=== PATIENT | female | born 1940 | race Caucasian/White ===

== ENCOUNTER → 2016-06-28 | Outpatient (CLI) | payer MEDICARE, BC ==
[2015-10-04 07:00] VITALS: BP 102/60
[~2016-06-28] MED LIST: ALEN70TA5 PO; ATOR40TA59 PO; CALC-67 PO; EXEN2VIA SQ; EXEN5PEN2 SQ; GABA-585 PO; HYDR-2666 PO; INSU100I13 SQ; LISI-334 PO; LOSA100T6 PO; METF-620 PO; MULT1TAB52 PO; OXYB5TAB7 PO
--- NOTE | 2016-06-28 12:17 | RAD ---
DATE: 06/28/2016 EXAM: DIGITAL SCREEN BILAT W/CAD HISTORY: Routine screening. COMPARISON: 05/19/2015 and 05/17/2014. This study was interpreted with the benefit of Computerized Aided Detection (CAD). FINDINGS: The parenchymal pattern is stable. No dominant mass or malignant appearing microcalcifications are seen. The axillae are unremarkable. Breast Density: SCATTERED The breast parenchyma shows scattered fibroglandular densities. Breast parenchyma level B. IMPRESSION: No mammographic features suspicious for malignancy are identified. BI-RADS CATEGORY: 1 NEGATIVE RECOMMENDED FOLLOW-UP: 12M 12 MONTH FOLLOW-UP PQRS compliance statement: Patient information was entered into a reminder system with a target due date 06/28/2017 for the next mammogram. Mammography is a sensitive method for finding small breast cancers, but it does not detect them all and is not a substitute for careful clinical examination. A negative mammogram does not negate a clinically suspicious finding and should not result in delay in biopsying a clinically suspicious abnormality. "Our facility is accredited by the [employer] Mamm[employer]."
== END | disposition home or self-care (01) ==
LOC: MAMMO 08:30
PROVIDERS: ATTEND Internal Medicine
DX: Z12.31 Encounter for screening mammogram for malignant neoplasm of breast (principal)
CPT/HCPCS: G0202; 77067

== ENCOUNTER 2016-09-23 12:48 | Inpatient (IN) | payer MEDICARE, BC ==
[~2016-09-23] VITALS: Ht 165.1 cm; Wt 72.7 kg
[~2016-09-23 12:48] MED LIST changes: +CALC-31 PO; -CALC-67 PO; -HYDR-2666 PO; +HYDR-2758 PO
[2016-09-23 13:14] LABS: BASO % 0 % (0-3); EOS % 1 % (0-3); HEMOGLOBIN 10.8 g/dL (12.0-15.5); LYMPH # 0.3 x10^3/uL (1.0-4.8); LYMPH % 6 % (24-48); MEAN CORPUSCULAR HEMOGLOBIN 27 pg (25-35); MEAN CORPUSCULAR HGB CONC 34 g/dL (31-37); MEAN CORPUSCULAR VOLUME 80 fL (79-100); MONO % 7 % (0-9); NEUT % 86 % (31-73); PLATELET COUNT 280 x10^3/uL (140-400); RED BLOOD COUNT 4.01 x10^6/uL (3.50-5.40); WHITE BLOOD COUNT 4.5 x10^3/uL (4.0-11.0)
[2016-09-23] MEDS ORDERED: IV NORMAL SALINE 1000ML BAG 1,000 ML IV SCH (13:24)
[2016-09-23 13:27] LABS: CALCIUM 9.2 mg/dL (8.5-10.1); CREATININE 0.8 mg/dL (0.6-1.0); GFR 69.6; POTASSIUM 3.9 mmol/L (3.5-5.1)
[2016-09-23] MEDS ORDERED: ONDANSETRON PF 4 MG/2 ML VIAL. IV ONE (13:30)
[2016-09-23 13:33] LABS: ALBUMIN 3.8 g/dL (3.4-5.0); ALBUMIN/GLOBULIN RATIO 1.3 (1.0-1.7); TOTAL BILIRUBIN 0.6 mg/dL (0.2-1.0); TOTAL PROTEIN 6.8 g/dL (6.4-8.2)
--- NOTE | 2016-09-23 13:45 | ED.ADGEN ---
Past Medical History Past Medical History: Diabetes-Type II, High Cholesterol, Hypertension Past Surgical History: , Hysterectomy Alcohol Use: None Drug Use: None Adult General Chief Complaint Chief Complaint: NAUSEA/VOMITING/DIARRHA HPI HPI Patient is a 75 year old woman, history of type 2 diabetes mellitus, insulin- dependent, hypertension, hyperlipidemia, who presents to the emergency department with complaint of nausea, vomiting, abdominal pain, over the past several days. Developed fever today, initially 100.3, but 100.8, and then 102.3 per . Patient is currently afebrile at 99 orally in the emergency department, did receive aspirin at home from her . Denies any diarrhea since states last bowel was yesterday. Is slightly confused today per report of , states has happened previously when her "her electrolytes were off". This occurred several years ago. Patient states she's had increasing malaise and decreased appetite. Denies any chest pain or shortness of breath, denies any pain with urination, any recent travel or surgery, any medication changes or missed doses of medication. No rashes, no swelling in extremities. Has not taken any medications at home aside from her typical daily medications prior to coming to the ED. Her primary care provider is Dr. Morfin. Status post cholecystectomy, uncertain if she still has her appendix. Review of Systems Review of Systems Constitutional: Fever times one day. [] Generalized malaise and weakness. Eyes: Denies change in visual acuity. [] HENT: Denies nasal congestion or sore throat. [] Respiratory: Denies cough or shortness of breath. [] Cardiovascular: Denies chest pain or edema. [] GI: Abdominal pain, nausea, vomiting, no bloody stools or diarrhea. : Denies dysuria. [] Musculoskeletal: Denies back pain or joint pain. [] Integument: Denies rash. [] Neurologic: Denies headache, focal weakness or sensory changes. [] Endocrine: Denies polyuria or polydipsia. [] Lymphatic: Denies swollen glands. [] Psychiatric: Denies depression or anxiety. [] Current Medications Current Medications Current Medications Medications (Trade) Dose Ordered Sig/Namita Start Time Stop Time Status Last Admin Dose Admin Info (Do NOT chart on this entry -- for MONITORING) 1 each PRN DAILY PRN 09/23/16 14:30 8/8/17 14:29 Iohexol (Omnipaque 300 Mg/ml) 75 ml 1X ONCE 09/23/16 14:30 09/23/16 14:31 DC 09/23/16 15:13 75 ML Ondansetron HCl (Zofran) 4 mg 1X ONCE 09/23/16 13:30 09/23/16 13:31 DC 09/23/16 13:34 4 MG Sodium Chloride 1,000 ml @ 1,000 mls/hr Q1H 09/23/16 13:24 09/23/16 14:23 DC 09/23/16 13:34 1,000 MLS/HR Allergies Allergies Allergies Coded Allergies Type Severity Reaction Last Updated Verified codeine Allergy Intermediate Nausea and Vomiting 10/03/15 Yes tramadol Allergy Intermediate Nausea and Vomiting 10/03/15 Yes Physical Exam Physical Exam Constitutional: Well developed, well nourished, no acute distress, non-toxic appearance. Mildly diaphoretic. HENT: Normocephalic, atraumatic, bilateral external ears normal, oropharynx moist, no oral exudates, nose normal. [] Eyes: PERRLA, EOMI, conjunctiva normal, no discharge. [] Neck: Normal range of motion, no tenderness, supple, no stridor. [] Cardiovascular:Heart rate regular rhythm, no murmur, S1, S2, rubs or gallops. Soft heart sounds. [] Lungs & Thorax: Bilateral breath sounds clear to auscultation no wheezing, rhonchi, rales. No chest wall crepitus or tenderness. [] Abdomen: Bowel sounds normal, soft, tenderness to palpation in the lower abdomen , patient also noted to have a macular rash across her abdomen, which she states happens sometimes when she has her insulin injections, there are no urticaria, no evidence of abscess or induration. It is nontender superficially. no masses, no pulsatile masses. [] Skin: Warm, dry, no erythema, no rash. [] Back: No tenderness, no CVA tenderness. [] Extremities: No tenderness, no cyanosis, no clubbing, ROM intact, no edema. [] Neurologic: Alert and oriented X 3, normal motor function, normal sensory function, no focal deficits noted. [] Psychologic: Affect normal, judgement normal, mood normal. [] Current Patient Data Vital Signs Vital Signs Date Time Temp Pulse Resp B/P (MAP) Pulse Ox O2 Delivery O2 Flow Rate FiO2 09/23/16 12:49 99.0 94 20 160/73 (102) 96 Room Air 99.0 Lab Values Laboratory Tests Test 09/23/16 13:00 09/23/16 15:50 White Blood Count 4.5 x10^3/uL (4.0-11.0) Red Blood Count 4.01 x10^6/uL (3.50-5.40) Hemoglobin 10.8 g/dL (12.0-15.5) L Hematocrit 32.0 % (36.0-47.0) L Mean Corpuscular Volume 80 fL (79-100) Mean Corpuscular Hemoglobin 27 pg (25-35) Mean Corpuscular Hemoglobin Concent 34 g/dL (31-37) Red Cell Distribution Width 16.0 % (11.5-14.5) H Platelet Count 280 x10^3/uL (140-400) Neutrophils (%) (Auto) 86 % (31-73) H Lymphocytes (%) (Auto) 6 % (24-48) L Monocytes (%) (Auto) 7 % (0-9) Eosinophils (%) (Auto) 1 % (0-3) Basophils (%) (Auto) 0 % (0-3) Neutrophils # (Auto) 3.8 x10^3uL (1.8-7.7) Lymphocytes # (Auto) 0.3 x10^3/uL (1.0-4.8) L Monocytes # (Auto) 0.3 x10^3/uL (0.0-1.1) Eosinophils # (Auto) 0.0 x10^3/uL (0.0-0.7) Basophils # (Auto) 0.0 x10^3/uL (0.0-0.2) Segmented Neutrophils % 51 % (35-66) Band Neutrophils % 31 % (0-9) H Lymphocytes % 11 % (24-48) L Atypical Lymphocytes % (Manual) 1 % (0-0) H Monocytes % 6 % (0-10) Platelet Estimate Adequate (ADEQUATE) Sodium Level 130 mmol/L (136-145) L Potassium Level 3.9 mmol/L (3.5-5.1) Chloride Level 93 mmol/L (98-107) L Carbon Dioxide Level 26 mmol/L (21-32) Anion Gap 11 (6-14) Blood Urea Nitrogen 9 mg/dL (7-20) Creatinine 0.8 mg/dL (0.6-1.0) Estimated GFR (Cockcroft-Gault) 69.6 BUN/Creatinine Ratio 11 (6-20) Glucose Level 199 mg/dL (70-99) H Lactic Acid Level 1.3 mmol/L (0.4-2.0) Calcium Level 9.2 mg/dL (8.5-10.1) Total Bilirubin 0.6 mg/dL (0.2-1.0) Aspartate Amino Transferase (AST) 470 U/L (15-37) H Alanine Aminotransferase (ALT) 340 U/L (14-59) H Alkaline Phosphatase 182 U/L (46-116) H Troponin I Quantitative < 0.017 ng/mL (0.000-0.055) Total Protein 6.8 g/dL (6.4-8.2) Albumin 3.8 g/dL (3.4-5.0) Albumin/Globulin Ratio 1.3 (1.0-1.7) Lipase 167 U/L (73-393) Urine Collection Type Unknown Urine Color Yellow Urine Clarity Cloudy Urine pH 7.5 Urine Specific Henderson 1.015 Urine Protein Negative mg/dL (NEG-TRACE) Urine Glucose (UA) Negative mg/dL (NEG) Urine Ketones (Stick) Negative mg/dL (NEG) Urine Blood Small (NEG) Urine Nitrite Negative (NEG) Urine Bilirubin Negative (NEG) Urine Urobilinogen Dipstick 0.2 mg/dL (0.2 mg/dL) Urine Leukocyte Esterase Small (NEG) Urine RBC 1-2 /HPF (0-2) Urine WBC 1-4 /HPF (0-4) Urine Squamous Epithelial Cells Few /LPF Urine Bacteria Many /HPF (0-FEW) Laboratory Tests 09/23/16 13:00 Laboratory Tests 09/23/16 13:00 EKG EKG EC: Sinus rhythm, heart rate 88 bpm, mild baseline artifact noted, upright axis QTC of 420, NM 174, QRS of 78, no ST elevations or depressions, no evidence of acute ST abnormalities. As interpreted by me. No prior for comparison. [] Radiology/Procedures Radiology/Procedures [][facility] [address] [place] [address] IMAGING REPORT Signed PATIENT: AMILCAR GONZALEZ I ACCOUNT: [id number] : 1940 LOCATION: ER AGE: 75 SEX: F EXAM STATUS: REG ER ORD. PHYSICIAN: ARANZA TROTTER DO REASON: abd pain/n/v PROCEDURE: CT ABD PELV W/ IV CONTRST ONLY Indication abdominal pain. Nausea and vomiting. Axial images through the abdomen and pelvis were obtained. No oral contrast was administered. Approximately 75 cc of Omnipaque 300 was administered intravenously. Note is made of a previous examination 01/21/2015. The lung bases are clear. There are occasional opacities in the subcutaneous soft tissues of the ventral, lower, abdominal wall. These are probably incidental. Clinical correlation advised. The liver and spleen appear unremarkable. Clips are noted in the gallbladder fossa. There is a very tiny hiatus hernia. No pancreatic pathology is seen. No adrenal pathology is seen. There is a right renal cyst similar to the previous exam. There is mild dilatation of both ureters right minimally greater than left. This is likely a function of the mildly distended urinary bladder. A definite calculus is not seen along the course of either ureter. An acute finding in the abdomen is not seen. In the pelvis no focal mass or inflammatory process is seen. There are degenerative changes in the lumbar spine likely with an associated component of spinal stenosis. IMPRESSION: No acute finding seen in the abdomen or pelvis. Mildly distended urinary bladder. Slightly prominent ureters is likely a function of same. DICTATED and SIGNED BY: CIARA ALVARADO MD DATE: 09/23/16 1535 CC: ARANZA TROTTER DO; RAIZA MORFIN MD ~ Chest x-ray: One view: Slight rotation, normal cardiopulmonary silhouette, no infiltrates, no effusions, mild flattening of the diaphragms, no pneumothorax. No soft tissue or bony abnormalities identified. As interpreted by me. Course & Med Decision Making Course & Med Decision Making Pertinent Labs and Imaging studies reviewed. (See chart for details) Patient afebrile in the ED, with reports of fever at home, agreeable receiving laboratory studies, imaging of the abdomen and chest. Chest x-ray does not reveal any evidence of concerning findings, CT of abdomen and pelvis reveals a mildly distended bladder, but no other abnormalities. Laboratory studies reveal no leukocytosis, but evidence of a left shift with bandemia of 31%. Patient's urinalysis does not reveal evidence of infection, lactic is 1.3, patient with hyponatremia with a sodium 130, creatinine of 1.1. Elevated LFTs noted, patient is status post cholecystomy many years ago, no localized abdominal tenderness. We'll continue to follow. Receiving IV fluids in the ED, along with antiemetics , remains afebrile. Patient alert and oriented 3, I did discuss findings with patient at bedside, she is agreeable with plan for admission to the hospital and coverage with broad-spectrum antibiotics. Aside from the rash noted on abdomen, no other abnormalities were identified. No additional history obtained. I did discuss findings as above with Dr. bruce of internal medicine, patient accepted to his service as a full admission to the medical telemetry floor with bridge orders entered per discussion. Dragon Disclaimer Dragon Disclaimer This electronic medical record was generated, in whole or in part, using a voice recognition dictation system. Departure Impression: Primary Impression: Hyponatremia Additional Impressions: Abdominal pain Bandemia without diagnosis of specific infection LFT elevation Disposition: ADMITTED INPATIENT Admitting Physician: Bárbara Bruce Condition: IMPROVED Problem Qualifiers ARANZA TROTTER DO Sep 23, 2016 13:45
[2016-09-23 14:09] LABS: PLT ESTIMATE ADEQUATE (ADEQUATE)
[2016-09-23] MEDS ORDERED: IOHEXOL 300 MG/ML 75 ML VIAL IV ONE (14:30)
[2016-09-23] MEDS ORDERED: CONTRAST GIVEN MC PRN (14:30)
--- NOTE | 2016-09-23 15:53 | RAD ---
Indication abdominal pain. Nausea and vomiting. Axial images through the abdomen and pelvis were obtained. No oral contrast was administered. Approximately 75 cc of Omnipaque 300 was administered intravenously. Note is made of a previous examination 01/21/2015. The lung bases are clear. There are occasional opacities in the subcutaneous soft tissues of the ventral, lower, abdominal wall. These are probably incidental. Clinical correlation advised. The liver and spleen appear unremarkable. Clips are noted in the gallbladder fossa. There is a very tiny hiatus hernia. No pancreatic pathology is seen. No adrenal pathology is seen. There is a right renal cyst similar to the previous exam. There is mild dilatation of both ureters right minimally greater than left. This is likely a function of the mildly distended urinary bladder. A definite calculus is not seen along the course of either ureter. An acute finding in the abdomen is not seen. In the pelvis no focal mass or inflammatory process is seen. There are degenerative changes in the lumbar spine likely with an associated component of spinal stenosis. IMPRESSION: No acute finding seen in the abdomen or pelvis. Mildly distended urinary bladder. Slightly prominent ureters is likely a function of same.
--- NOTE | 2016-09-23 16:06 | EKG ---
[facility] [address] [place] [address] Test Date: 2016-09-23 Test Time: 13:19:15 Pat Name: AMILCAR GONZALEZ Department: Room: Gender: F Tmd Teacher Assistant: : 1940 Requested By: ARANZA TROTTER Order Number: [id number] Reading MD: Measurements Intervals [place] Rate: 88 P: 45 UT: 174 QRS: 3 QRSD: 78 T: 70 QT: 344 QTc: 420 Interpretive Statements SINUS RHYTHM NORMAL ECG RI6.01 Compared to ECG 01/21/2015 08:57:33 No significant changes
[2016-09-23 16:17] LABS: BILIRUBIN,URINE NEGATIVE (NEG); GLUCOSE,URINE NEGATIVE (NEG); NITRITE,URINE NEGATIVE (NEG); PH,URINE 7.5; PROTEIN,URINE NEGATIVE (NEG-TRACE); UROBILINOGEN,URINE 0.2 mg/dL (0.2 mg/dL)
[2016-09-23 16:47] LABS: BACTERIA,URINE MANY /HPF (0-FEW); SQUAMOUS EPITHELIAL CELL,UR FEW /LPF
[2016-09-23] MEDS ORDERED: VANCOMYCIN 1.75 GM in IV NORMAL SALINE 500ML BAG 500 ML IV ONE (17:15)
[2016-09-23] MEDS: CEFEPIME HCL 2 GM in IV NORMAL SALINE 100ML 100 ML IV SCH (17:53)
[2016-09-23] MEDS ORDERED: DEXTROSE 50% 25 GM / 50ML DISP.SYRIN. IV PRN ×2 (18:45→20:15)
[2016-09-23] MEDS ORDERED: ACETAMINOPHEN 325 MG TABLET. PO PRN (18:45)
[2016-09-23] MEDS ORDERED: fentaNYL PF VIAL 100 MCG/2 ML VIAL IV PRN (18:45)
[2016-09-23] MEDS ORDERED: ONDANSETRON PF 4 MG/2 ML VIAL. IV PRN (18:45)
[2016-09-23 19:05] VITALS: BP 132/58
[2016-09-23] MEDS: VANCOMYCIN PER PHARMACY MC PRN (19:47)
[2016-09-23 19:52] VITALS: BP 132/58
[2016-09-23] MEDS ORDERED: HYDROcodone/APAP 5/325MG 1 TAB TABLET PO PRN (20:15)
--- NOTE | 2016-09-23 20:26 | PDOC1 ---
History and Physical Date of Admission Date of Admission DATE: 09/23/16 TIME: 20:13 Identification/Chief Complaint Chief Complaint fever, confusion Problems: Source Source: Caregiver, Chart review, Patient History of Present Illness History of Present Illness Ms. Redding is a 75 year old woman, ,admit from ER w/ acute nausea, vomiting, abdominal pain, over the past several days. Has myalgia and lethargy and generally does not feel well Developed fever today, up to 102.3 per , given aspirin for anti- pyretic. She was confused earlier, but family reports she is largely improved now, still , she preferred to have her and daughter provide most of the history. no loose stool , but does have a rash where she injects her insulin PCP Dr. Morfin Past Medical History Past Medical History history of type 2 diabetes mellitus, insulin-dependent, hypertension, hyperlipidemia Cardiovascular: HTN, Hyperlipidemia, Other Endocrine: Diabetes Past Surgical History Past Surgical History: No pertinent history Family History Family History: Other Social History Smoke: No ALCOHOL: none Drugs: None Current Problem List Problem List Problems Medical Problems: (1) Abdominal pain Status: Acute (2) Bandemia without diagnosis of specific infection Status: Acute (3) Hyponatremia Status: Acute (4) LFT elevation Status: Acute Problems: Current Medications Current Medications Current Medications Sodium Chloride 1,000 ml @ 1,000 mls/hr Q1H IV Last administered on 09/23/16 13:34; Start 09/23/16 at 13:24; Stop 09/23/16 at 14:23; Status DC Ondansetron HCl (Zofran) 4 mg 1X ONCE IV Last administered on 09/23/16 13:34; Start 09/23/16 at 13:30; Stop 09/23/16 at 13:31; Status DC Iohexol (Omnipaque 300 Mg/ml) 75 ml 1X ONCE IV Last administered on 09/23/16 15:13; Start 09/23/16 at 14:30; Stop 09/23/16 at 14:31; Status DC Info (Do NOT chart on this entry -- for MONITORING) 1 each PRN DAILY PRN MC SEE COMMENTS; Start 09/23/16 at 14:30; Stop 09/25/16 at 14:29 Vancomycin HCl (Vanco Per Pharmacy) 1 each PRN DAILY PRN MC SEE COMMENTS Last administered on 09/23/16 19:47; Start 09/23/16 at 17:15 Cefepime HCl 2 gm/ Sodium Chloride 100 ml @ 200 mls/hr Q12HR IV Last administered on 09/23/16 17:53; Start 09/23/16 at 17:30 Vancomycin HCl 1.75 gm/Sodium Chloride 500 ml @ 250 mls/hr 1X ONCE IV Last administered on 09/23/16 18:39; Start 09/23/16 at 17:15; Stop 09/23/16 at 19:14; Status DC Ondansetron HCl (Zofran) 4 mg PRN Q8HRS PRN IV NAUSEA/VOMITING; Start 09/23/16 at 18:45; Stop 09/24/16 at 18:44 Fentanyl Citrate (Fentanyl 2ml Vial) 50 mcg PRN Q2HR PRN IV PAIN; Start at 18:45; Stop 09/24/16 at 18:44 Sodium Chloride 1,000 ml @ 125 mls/hr Q8H IV ; Start 09/23/16 at 18:41; Stop 09/24/16 at 18:40 Acetaminophen (Tylenol) 650 mg PRN Q4HRS PRN PO FEVER; Start 09/23/16 at 18:45; Stop 09/24/16 at 18:44 Insulin Aspart (NovoLOG) 0-5 UNITS TIDWMEALS SQ ; Start 09/24/16 at 08:00 Dextrose (Dextrose 50%-Water Syringe) 12.5 gm PRN Q15MIN PRN IV SEE COMMENTS; Start 09/23/16 at 18:45 Vancomycin HCl 1 gm/Sodium Chloride 250 ml @ 250 mls/hr Q24H IV ; Start at 18:30 Vancomycin HCl 1 each 1X ONCE MC ; Start 09/25/16 at 18:00; Stop 09/25/16 at 18: 01 Active Scripts Active Hydrocodone-Apap 5-325 (Hydrocodone Bit/Acetaminophen) 1 Each Tablet 1 Tab PO PRN Q4HRS PRN Reported Gui (Exenatide Microspheres) 2 Mg Vial 2 Mg SQ WEEKLY Losartan Potassium 100 Mg Tablet 100 Mg PO HS Gabapentin 100 Mg Capsule 100 Mg PO QHS Metformin Hcl 1,000 Mg Tablet 1,000 Mg PO BID Alendronate Sodium 70 Mg Tablet 70 Mg PO WEEKLY PATIENT TAKES ON SATURDAY Atorvastatin Calcium 40 Mg Tablet 40 Mg PO QPM Lantus Solostar (Insulin Glargine,Hum.rec.anlog) 100 Unit/1 Ml Insuln.pen 15 Units SQ QHS Allergies Allergies: Coded Allergies: codeine (Verified Allergy, Intermediate, Nausea and Vomiting, 10/03/15) tramadol (Verified Allergy, Intermediate, Nausea and Vomiting, 10/03/15) ROS General: YES: Chills, Fatigue, Malaise, No: Night Sweats, Appetite, Other PSYCHOLOGICAL ROS: No: Anxiety, Behavioral Disorder, Concentration difficultie , Decreased libido, Depression, Disorientation, Hallucinations, Hostility, Irritablity, Memory difficulties, Mood Swings, Obsessive thoughts, Physical abuse, Sexual abuse, Sleep disturbances, Suicidal ideation, Other Eyes: No Blurry vision, No Decreased vision, No Double vision, No Dry eyes, No Excessive tearing, No Eye Pain, No Itchy Eyes, No Loss of vision, No Photophobia , No Scotomata, No Uses contacts, No Uses glasses, No Other HEENT: No: Heacaches, Visual Changes, Hearing change, Nasal congestion, Nasal discharge, Oral lesions, Sinus pain, Sore Throat, Epistaxis, Sneezing, Snoring, Tinnitus, Vertigo, Vocal changes, Other Respiratory: No: Cough, Hemoptysis, Orthopnea, Pleuritic Pain, Shortness of breath, SOB with excertion, Sputum Changes, Stridor, Tachypnea, Wheezing, Other Cardiovascular: No Chest Pain, No Palpitations, No Orthopnea, No Paroxysmal Noc. Dyspnea, No Edema, No Lt Headedness, No Other Gastrointestinal: No Nausea, No Vomiting, No Abdominal Pain, No Diarrhea, No Constipation, No Melena, No Hematochezia, No Other Genitourinary: No Dysuria, No Frequency, No Incontinence, No Hematuria, No Retention, No Discharge, No Urgency, No Pain, No Flank Pain, No Other, No , No , No , No , No , No , No Musculoskeletal: No Gait Disturbance, No Joint Pain, No Joint Stiffness, No Joint Swelling, No Muscle Pain, No Muscular Weakness, No Pain In:, No Swelling In:, No Other Neurological: Yes Confusion, No Behavorial Changes, No Bowel/Bladder ControlChng, No Gait Disturbance, No Headaches, No Impaired Coord/balance, No Memory Loss, No Numbness/Tingling, No Seizures, No Speech Problems, No Tremors, No Visual Changes, No Weakness, No Other Skin: Yes Dry Skin, Yes Hair Changes, Yes Rash Physical Exam General: Alert, Cooperative, No acute distress, Other (oriented 3/4, family reports mental status below baseline) HEENT: Atraumatic, EOMI, Mucous membr. moist/pink Lungs: Clear to auscultation, Normal air movement Heart: no gallops, no murmurs Abdomen: Normal bowel sounds, Soft, Other (fine pink rash on lower abdomen where she injects her Exanatide) Rectal Exam: not examined Extremities: No clubbing, No cyanosis, No edema Skin: No breakdown, Other (diffuse fine pink rash on abd, not tender, no induration, ) Neuro: Normal speech, Normal tone Psych/Mental Status: Mood NL Vitals Vitals Vital Signs Date Time Temp Pulse Resp B/P (MAP) Pulse Ox O2 Delivery O2 Flow Rate FiO2 09/23/16 19:52 99.3 92 18 132/58 (82) 97 Room Air 99.3 Labs Labs Laboratory Tests Test 09/23/16 13:00 09/23/16 15:50 White Blood Count 4.5 x10^3/uL (4.0-11.0) Red Blood Count 4.01 x10^6/uL (3.50-5.40) Hemoglobin 10.8 g/dL (12.0-15.5) Hematocrit 32.0 % (36.0-47.0) Mean Corpuscular Volume 80 fL (79-100) Mean Corpuscular Hemoglobin 27 pg (25-35) Mean Corpuscular Hemoglobin Concent 34 g/dL (31-37) Red Cell Distribution Width 16.0 % (11.5-14.5) Platelet Count 280 x10^3/uL (140-400) Neutrophils (%) (Auto) 86 % (31-73) Lymphocytes (%) (Auto) 6 % (24-48) Monocytes (%) (Auto) 7 % (0-9) Eosinophils (%) (Auto) 1 % (0-3) Basophils (%) (Auto) 0 % (0-3) Neutrophils # (Auto) 3.8 x10^3uL (1.8-7.7) Lymphocytes # (Auto) 0.3 x10^3/uL (1.0-4.8) Monocytes # (Auto) 0.3 x10^3/uL (0.0-1.1) Eosinophils # (Auto) 0.0 x10^3/uL (0.0-0.7) Basophils # (Auto) 0.0 x10^3/uL (0.0-0.2) Segmented Neutrophils % 51 % (35-66) Band Neutrophils % 31 % (0-9) Lymphocytes % 11 % (24-48) Atypical Lymphocytes % (Manual) 1 % (0-0) Monocytes % 6 % (0-10) Platelet Estimate Adequate (ADEQUATE) Sodium Level 130 mmol/L (136-145) Potassium Level 3.9 mmol/L (3.5-5.1) Chloride Level 93 mmol/L (98-107) Carbon Dioxide Level 26 mmol/L (21-32) Anion Gap 11 (6-14) Blood Urea Nitrogen 9 mg/dL (7-20) Creatinine 0.8 mg/dL (0.6-1.0) Estimated GFR (Cockcroft-Gault) 69.6 BUN/Creatinine Ratio 11 (6-20) Glucose Level 199 mg/dL (70-99) Lactic Acid Level 1.3 mmol/L (0.4-2.0) Calcium Level 9.2 mg/dL (8.5-10.1) Total Bilirubin 0.6 mg/dL (0.2-1.0) Aspartate Amino Transf (AST/SGOT) 470 U/L (15-37) Alanine Aminotransferase (ALT/SGPT) 340 U/L (14-59) Alkaline Phosphatase 182 U/L (46-116) Troponin I Quantitative < 0.017 ng/mL (0.000-0.055) Total Protein 6.8 g/dL (6.4-8.2) Albumin 3.8 g/dL (3.4-5.0) Albumin/Globulin Ratio 1.3 (1.0-1.7) Lipase 167 U/L (73-393) Urine Collection Type Unknown Urine Color Yellow Urine Clarity Cloudy Urine pH 7.5 Urine Specific [place] 1.015 Urine Protein Negative mg/dL (NEG-TRACE) Urine Glucose (UA) Negative mg/dL (NEG) Urine Ketones (Stick) Negative mg/dL (NEG) Urine Blood Small (NEG) Urine Nitrite Negative (NEG) Urine Bilirubin Negative (NEG) Urine Urobilinogen Dipstick 0.2 mg/dL (0.2 mg/dL) Urine Leukocyte Esterase Small (NEG) Urine RBC 1-2 /HPF (0-2) Urine WBC 1-4 /HPF (0-4) Urine Squamous Epithelial Cells Few /LPF Urine Bacteria Many /HPF (0-FEW) Laboratory Tests Test 09/23/16 13:00 09/23/16 15:50 White Blood Count 4.5 x10^3/uL (4.0-11.0) Red Blood Count 4.01 x10^6/uL (3.50-5.40) Hemoglobin 10.8 g/dL (12.0-15.5) Hematocrit 32.0 % (36.0-47.0) Mean Corpuscular Volume 80 fL (79-100) Mean Corpuscular Hemoglobin 27 pg (25-35) Mean Corpuscular Hemoglobin Concent 34 g/dL (31-37) Red Cell Distribution Width 16.0 % (11.5-14.5) Platelet Count 280 x10^3/uL (140-400) Neutrophils (%) (Auto) 86 % (31-73) Lymphocytes (%) (Auto) 6 % (24-48) Monocytes (%) (Auto) 7 % (0-9) Eosinophils (%) (Auto) 1 % (0-3) Basophils (%) (Auto) 0 % (0-3) Neutrophils # (Auto) 3.8 x10^3uL (1.8-7.7) Lymphocytes # (Auto) 0.3 x10^3/uL (1.0-4.8) Monocytes # (Auto) 0.3 x10^3/uL (0.0-1.1) Eosinophils # (Auto) 0.0 x10^3/uL (0.0-0.7) Basophils # (Auto) 0.0 x10^3/uL (0.0-0.2) Segmented Neutrophils % 51 % (35-66) Band Neutrophils % 31 % (0-9) Lymphocytes % 11 % (24-48) Atypical Lymphocytes % (Manual) 1 % (0-0) Monocytes % 6 % (0-10) Platelet Estimate Adequate (ADEQUATE) Sodium Level 130 mmol/L (136-145) Potassium Level 3.9 mmol/L (3.5-5.1) Chloride Level 93 mmol/L (98-107) Carbon Dioxide Level 26 mmol/L (21-32) Anion Gap 11 (6-14) Blood Urea Nitrogen 9 mg/dL (7-20) Creatinine 0.8 mg/dL (0.6-1.0) Estimated GFR (Cockcroft-Gault) 69.6 BUN/Creatinine Ratio 11 (6-20) Glucose Level 199 mg/dL (70-99) Lactic Acid Level 1.3 mmol/L (0.4-2.0) Calcium Level 9.2 mg/dL (8.5-10.1) Total Bilirubin 0.6 mg/dL (0.2-1.0) Aspartate Amino Transf (AST/SGOT) 470 U/L (15-37) Alanine Aminotransferase (ALT/SGPT) 340 U/L (14-59) Alkaline Phosphatase 182 U/L (46-116) Troponin I Quantitative < 0.017 ng/mL (0.000-0.055) Total Protein 6.8 g/dL (6.4-8.2) Albumin 3.8 g/dL (3.4-5.0) Albumin/Globulin Ratio 1.3 (1.0-1.7) Lipase 167 U/L (73-393) Urine Collection Type Unknown Urine Color Yellow Urine Clarity Cloudy Urine pH 7.5 Urine Specific [place] 1.015 Urine Protein Negative mg/dL (NEG-TRACE) Urine Glucose (UA) Negative mg/dL (NEG) Urine Ketones (Stick) Negative mg/dL (NEG) Urine Blood Small (NEG) Urine Nitrite Negative (NEG) Urine Bilirubin Negative (NEG) Urine Urobilinogen Dipstick 0.2 mg/dL (0.2 mg/dL) Urine Leukocyte Esterase Small (NEG) Urine RBC 1-2 /HPF (0-2) Urine WBC 1-4 /HPF (0-4) Urine Squamous Epithelial Cells Few /LPF Urine Bacteria Many /HPF (0-FEW) VTE Prophylaxis Ordered VTE Prophylaxis Devices: No VTE Pharmacological Prophylaxi: Yes Assessment/Plan Assessment/Plan diffuse rash on abdomen where she injects her Exanatide, hold the GLP-1 agonist Dm2, inulin, add SSI + SIRS without source, possible sepsis, vanc and cefepime started, unsure of source, UA showed minimal evidence of UTI acute metabolic encephalopathy, appears improved per family hyponatremia microcytic anemia , check iron level transaminitis, recheck with a GGTP, consult GI, Ct abd done SMITA BARKSDALE MD Sep 23, 2016 20:26
[2016-09-23] MEDS ORDERED: DOCUSATE SODIUM 100 MG CAPSULE. PO PRN (20:30)
[2016-09-23] MEDS: IV NORMAL SALINE 1000ML BAG 1,000 ML IV SCH (20:52)
[2016-09-23] MEDS: INSULIN ASPART 300 UNITS/3 ML INSULN.PEN SQ SCH (21:00)
[2016-09-23] MEDS: LOSARTAN POTASSIUM 50 MG TABLET. PO SCH (21:23)
[2016-09-23] MEDS: GABAPENTIN 100 MG CAPSULE. PO SCH (21:23)
[2016-09-23] MEDS: ATORVASTATIN CALCIUM 40 MG TABLET. PO SCH (21:23)
[2016-09-23] MEDS: DIPHENHYDRAMINE/ZINC ACETATE 2%/0.1% TOPICAL CREAM 28GM TUBE. TP SCH (21:35)
[2016-09-23] MEDS: INSULIN DETEMIR 300 UNITS/3 ML INSULN.PEN. SQ SCH (21:38)
[2016-09-23 23:19] VITALS: BP 97/46
[2016-09-24] MEDS: IV NORMAL SALINE 1000ML BAG 1,000 ML IV SCH ×2 (02:41→14:07)
[2016-09-24 03:36] VITALS: BP 96/31
[2016-09-24 04:09] LABS: BASO % 1 % (0-3); EOS % 1 % (0-3); HEMATOCRIT 28.4 % (36.0-47.0); HEMOGLOBIN 9.5 g/dL (12.0-15.5); LYMPH # 0.6 x10^3/uL (1.0-4.8); LYMPH % 17 % (24-48); MEAN CORPUSCULAR HEMOGLOBIN 27 pg (25-35); MEAN CORPUSCULAR HGB CONC 33 g/dL (31-37); MEAN CORPUSCULAR VOLUME 80 fL (79-100); MONO % 11 % (0-9); NEUT % 70 % (31-73); PLATELET COUNT 243 x10^3/uL (140-400); RED BLOOD COUNT 3.55 x10^6/uL (3.50-5.40); WHITE BLOOD COUNT 3.7 x10^3/uL (4.0-11.0)
[2016-09-24 04:38] LABS: CALCIUM 8.2 mg/dL (8.5-10.1); CREATININE 0.8 mg/dL (0.6-1.0); GFR 69.6; POTASSIUM 3.6 mmol/L (3.5-5.1)
[2016-09-24 04:45] LABS: % SAT IRON 8 % (15-34); IRON,SERUM 23 ug/dL (50-170)
--- NOTE | 2016-09-24 05:32 | ACF ---
Admission Forms Criteria ABDOMINAL PAIN Clinical Indications for Admission to Inpatient Care (Place 'X' for any and all applicable criteria): Admission is indicated for ANY ONE of the following(1)(2)(3)(4)(5): [X ]I. Inpatient admission required rather than observation care (Also use Abdominal Pain: Observation Care, as appropriate) because of ANY ONE of the following: [ ]a) Severe pain requiring acute inpatient management [ ]b) Identification of etiology/finding that requires inpatient care (eg, aortic dissection, free air) [ ]c) Absent bowel sounds with complete ileus(6) [ ]d) Suspected toxic megacolon [ ]e) Severe electrolyte abnormalities requiring inpatient care [ ]f) High fever or infection requiring inpatient admission as indicated by ANY ONE of following(7)(8): [ ] i) Appropriate outpatient or observational care antimicrobial treatment unavailable, not effective, or not feasible [ ] ii) Documented bacteremia [ ] iii) Temperature > 104.9 degrees F (oral) [ ] iv) T >103.1 F (oral) or < 96.8 F(rectal) that does not respond to all emergency treatment measures [ ]g) Signs of intestinal obstruction [B] [ ]h) Hemodynamic instability [ ]i) IV fluid to replace significant ongoing losses (greater than 3 L/m2 per day) (12)(13) [ ]j) Percutaneous or open drainage (eg, abscess, biliary tract ) procedures [ ]k) Parenteral nutrition regimen that must be implemented on inpatient basis [X ]l) Other condition,treatment or monitoring requiring inpatient admission. [ ]II. Peritoneal signs present [ ]III. Surgery needed that cannot be performed on an ambulatory basis. [ ]IV. Evaluation requires patient to not eat or drink for extended period ( eg, more than 24 hours). [ ]V. Contraindications and/or Inappropriate clinical situations for Observational Care in patients with abdominal pain, when ANY ONE of the following is required: [ ]a) Thorough evaluation is required to prevent catastrophic events due to delays in diagnosing (e.g.Mesenteric ischemia) 1,3 [ ]b) Patient with severe pathology or with chronic symptoms unlikely to improve in the ED stay (3) [ X]. General contraindications and/or Inappropriate clinical situations for Observational Care in patients with abdominal pain, when ANY ONE of the following is required: [X ]a) Prediction of prolongation of LOS based on ANY ONE of the following may be considered as a contraindication for observational care 2, 3, 4, 5, 6, 7, 8, 9, 10, 11 [X ]i) Age > 65 yrs. [ ]ii) Patient arriving by ambulance [ ]iii) Patient with high acuity [ X]iv) Patient requiring vital sign monitoring [ ]v) Patient on IV medication [ ]b) Systolic blood pressures 180mmHg 3,12 [ ]c) Patient with altered mental status including delirium and other alteration of consciousness, (3) [ ]d) Patient whose discharge disposition will be to a custodial home or rehabilitation home should not be managed in Emergency Department Observation Unit. CMS rule requires 3 days hospital stay before such placement.3,13 [ ]e) Patient with failure to thrive due to broad array of etiologies 3,16,17 [ ]f) Inability to ambulate 3,14 Extended stay beyond goal length of stay may be needed for(2)(3): [ ]a) Persistent abdominal pain with suspected intra-abdominal process [ ]b) Diagnosed condition requiring continued stay (e.g., pancreatitis, complicated diverticulitis) [ ]c) Surgery (e.g., colectomy) The original [employer] content created by [email or web address] has been revised. The portions of the content which have been revised are identified through the use of italic text or in bold, and [facility] has neither reviewed nor approved the modified material.All other unmodified content is copyright [employer] [facility]. Please see references footnoted in the original [facility] [employer] [place] edition 2016 Admission Criteria Met?: Yes PHYLICIA DIETZ Sep 24, 2016 05:32
[2016-09-24 07:10] VITALS: BP 118/65
[2016-09-24] MEDS: INSULIN ASPART 300 UNITS/3 ML INSULN.PEN SQ SCH ×7 (07:30→20:36)
--- NOTE | 2016-09-24 07:46 | RAD ---
Indication nausea vomiting. Fever. Cough. A single view of the chest was obtained and is compared to an examination 08/10/2015. The heart and pulmonary vessels appear normal. The lungs are clear. There is no pleural fluid or pneumothorax. There has not been a significant change when compared to the previous exam. IMPRESSION: No acute or focal process. No significant change
[2016-09-24] MEDS: GABAPENTIN 100 MG CAPSULE. PO SCH ×2 (08:22→20:29)
[2016-09-24] MEDS: LOSARTAN POTASSIUM 50 MG TABLET. PO SCH (08:23)
[2016-09-24] MEDS: DIPHENHYDRAMINE/ZINC ACETATE 2%/0.1% TOPICAL CREAM 28GM TUBE. TP SCH ×3 (08:24→21:34)
[2016-09-24] MEDS: CEFEPIME HCL 2 GM in IV NORMAL SALINE 100ML 100 ML IV SCH ×2 (08:24→20:29)
--- NOTE | 2016-09-24 09:40 | PDOC2 ---
GI CONSULT Reason For Consult: Transaminitis HPI: HPI: 75 y/o admitted w/ fever and confusion, also has had some n/v. Noted to have elevated LFTs including GGT 232, AST 470, ALT 340, Alk Phos 182. Bilirubin is normal. Additionally, WBC was 3.7, Hgb was 10.8 (now 9.5) w/ normal indices and elevated RDW. Noted also w/ low iron and % sat. CT A/P was unrevealing, note normal liver. Denies h/o liver issues, is s/p cholecystectomy. Has been taking iron for a few months, says has had diarrhea since then and stools look very dark. Recently started gabapentin. No previous EGD or colonoscopy, denies previous hematology workup. Takes ibuprofen PRN, no Tylenol. Feeling better this morning, tolerating clears, would like to advance per RN. Denies reflux/heartburn, abd pain, weight loss. ID to see, Tmax 99.3 here. PMH: PMH: HTN, HLD, DM, peripheral neuropathy, CKD, parathyroidectomy, partial thyroidectomy, cataract extraction, cholecystectomy, hysterectomy FH: Family History: No pertinent hx Social History: Smoke: No ALCOHOL: none Drugs: None ROS: GEN: +fevers HEENT: Denies blurred vision, sore throat CV: Denies chest pain RESP: Denies shortness of air, cough GI: Per HPI : Denies hematuria, dysuria ENDO: Denies weight changes NEURO: +confusion MSK: Denies weakness, joint pain/swelling SKIN: Denies jaundice, pruritus Vitals: Vitals: Vital Signs Date Time Temp Pulse Resp B/P (MAP) Pulse Ox O2 Delivery O2 Flow Rate FiO2 09/24/16 09:11 Room Air 09/24/16 08:23 81 118/65 09/24/16 07:10 99.0 16 93 99.0 Labs: Labs: Laboratory Tests Test 09/23/16 13:00 09/23/16 15:50 09/23/16 20:25 09/23/16 20:37 White Blood Count 4.5 x10^3/uL (4.0-11.0) Red Blood Count 4.01 x10^6/uL (3.50-5.40) Hemoglobin 10.8 g/dL (12.0-15.5) Hematocrit 32.0 % (36.0-47.0) Mean Corpuscular Volume 80 fL (79-100) Mean Corpuscular Hemoglobin 27 pg (25-35) Mean Corpuscular Hemoglobin Concent 34 g/dL (31-37) Red Cell Distribution Width 16.0 % (11.5-14.5) Platelet Count 280 x10^3/uL (140-400) Neutrophils (%) (Auto) 86 % (31-73) Lymphocytes (%) (Auto) 6 % (24-48) Monocytes (%) (Auto) 7 % (0-9) Eosinophils (%) (Auto) 1 % (0-3) Basophils (%) (Auto) 0 % (0-3) Neutrophils # (Auto) 3.8 x10^3uL (1.8-7.7) Lymphocytes # (Auto) 0.3 x10^3/uL (1.0-4.8) Monocytes # (Auto) 0.3 x10^3/uL (0.0-1.1) Eosinophils # (Auto) 0.0 x10^3/uL (0.0-0.7) Basophils # (Auto) 0.0 x10^3/uL (0.0-0.2) Segmented Neutrophils % 51 % (35-66) Band Neutrophils % 31 % (0-9) Lymphocytes % 11 % (24-48) Atypical Lymphocytes % (Manual) 1 % (0-0) Monocytes % 6 % (0-10) Platelet Estimate Adequate (ADEQUATE) Sodium Level 130 mmol/L (136-145) Potassium Level 3.9 mmol/L (3.5-5.1) Chloride Level 93 mmol/L (98-107) Carbon Dioxide Level 26 mmol/L (21-32) Anion Gap 11 (6-14) Blood Urea Nitrogen 9 mg/dL (7-20) Creatinine 0.8 mg/dL (0.6-1.0) Estimated GFR (Cockcroft-Gault) 69.6 BUN/Creatinine Ratio 11 (6-20) Glucose Level 199 mg/dL (70-99) Lactic Acid Level 1.3 mmol/L (0.4-2.0) 1.1 mmol/L (0.4-2.0) Calcium Level 9.2 mg/dL (8.5-10.1) Total Bilirubin 0.6 mg/dL (0.2-1.0) Aspartate Amino Transf (AST/SGOT) 470 U/L (15-37) Alanine Aminotransferase (ALT/SGPT) 340 U/L (14-59) Alkaline Phosphatase 182 U/L (46-116) Troponin I Quantitative < 0.017 ng/mL (0.000-0.055) Total Protein 6.8 g/dL (6.4-8.2) Albumin 3.8 g/dL (3.4-5.0) Albumin/Globulin Ratio 1.3 (1.0-1.7) Lipase 167 U/L (73-393) Urine Collection Type Unknown Urine Color Yellow Urine Clarity Cloudy Urine pH 7.5 Urine Specific [place] 1.015 Urine Protein Negative mg/dL (NEG-TRACE) Urine Glucose (UA) Negative mg/dL (NEG) Urine Ketones (Stick) Negative mg/dL (NEG) Urine Blood Small (NEG) Urine Nitrite Negative (NEG) Urine Bilirubin Negative (NEG) Urine Urobilinogen Dipstick 0.2 mg/dL (0.2 mg/dL) Urine Leukocyte Esterase Small (NEG) Urine RBC 1-2 /HPF (0-2) Urine WBC 1-4 /HPF (0-4) Urine Squamous Epithelial Cells Few /LPF Urine Bacteria Many /HPF (0-FEW) Glucose (Fingerstick) 175 mg/dL (70-99) Test 09/24/16 03:05 09/24/16 07:13 White Blood Count 3.7 x10^3/uL (4.0-11.0) Red Blood Count 3.55 x10^6/uL (3.50-5.40) Hemoglobin 9.5 g/dL (12.0-15.5) Hematocrit 28.4 % (36.0-47.0) Mean Corpuscular Volume 80 fL (79-100) Mean Corpuscular Hemoglobin 27 pg (25-35) Mean Corpuscular Hemoglobin Concent 33 g/dL (31-37) Red Cell Distribution Width 16.0 % (11.5-14.5) Platelet Count 243 x10^3/uL (140-400) Neutrophils (%) (Auto) 70 % (31-73) Lymphocytes (%) (Auto) 17 % (24-48) Monocytes (%) (Auto) 11 % (0-9) Eosinophils (%) (Auto) 1 % (0-3) Basophils (%) (Auto) 1 % (0-3) Neutrophils # (Auto) 2.6 x10^3uL (1.8-7.7) Lymphocytes # (Auto) 0.6 x10^3/uL (1.0-4.8) Monocytes # (Auto) 0.4 x10^3/uL (0.0-1.1) Eosinophils # (Auto) 0.0 x10^3/uL (0.0-0.7) Basophils # (Auto) 0.0 x10^3/uL (0.0-0.2) Sodium Level 133 mmol/L (136-145) Potassium Level 3.6 mmol/L (3.5-5.1) Chloride Level 99 mmol/L (98-107) Carbon Dioxide Level 25 mmol/L (21-32) Anion Gap 9 (6-14) Blood Urea Nitrogen 6 mg/dL (7-20) Creatinine 0.8 mg/dL (0.6-1.0) Estimated GFR (Cockcroft-Gault) 69.6 Glucose Level 89 mg/dL (70-99) Calcium Level 8.2 mg/dL (8.5-10.1) Iron Level 23 ug/dL (50-170) Total Iron Binding Capacity 305 ug/dL (250-450) Iron Saturation 8 % (15-34) Gamma Glutamyl Transpeptidase 232 U/L (5-55) Glucose (Fingerstick) 103 mg/dL (70-99) Allergies: Coded Allergies: codeine (Verified Allergy, Intermediate, Nausea and Vomiting, 10/03/15) tramadol (Verified Allergy, Intermediate, Nausea and Vomiting, 10/03/15) Medications: Current Medications Medications (Trade) Dose Ordered Sig/Namita Route PRN Reason Start Time Stop Time Status Last Admin Dose Admin Sodium Chloride 1,000 ml @ 1,000 mls/hr Q1H IV 09/23/16 13:24 09/23/16 14:23 DC 09/23/16 13:34 Ondansetron HCl (Zofran) 4 mg 1X ONCE IV 09/23/16 13:30 09/23/16 13:31 DC 09/23/16 13:34 Iohexol (Omnipaque 300 Mg/ml) 75 ml 1X ONCE IV 09/23/16 14:30 09/23/16 14:31 DC 09/23/16 15:13 Vancomycin HCl (Vanco Per Pharmacy) 1 each PRN DAILY PRN MC SEE COMMENTS 09/23/16 17:15 09/23/16 19:47 Cefepime HCl 2 gm/ Sodium Chloride 100 ml @ 200 mls/hr Q12HR IV 09/23/16 17:30 09/24/16 08:24 Vancomycin HCl 1.75 gm/Sodium Chloride 500 ml @ 250 mls/hr 1X ONCE IV 09/23/16 17:15 09/23/16 19:14 DC 09/23/16 18:39 Sodium Chloride 1,000 ml @ 125 mls/hr Q8H IV 09/23/16 18:41 09/24/16 18:40 09/24/16 02:41 Atorvastatin Calcium (Lipitor) 40 mg QHS PO 09/23/16 21:00 09/23/16 21:23 Gabapentin (Neurontin) 100 mg BID PO 09/23/16 21:00 09/24/16 08:22 Insulin Detemir (Levemir) 15 units QHS SQ 09/23/16 21:00 09/23/16 21:38 Losartan Potassium (Cozaar) 100 mg DAILY PO 09/23/16 21:00 09/24/16 08:23 Zinc Acetate/ Diphenhydramine (Benadryl Topical) 1 chandu TID TP 09/23/16 21:00 09/23/16 21:35 PE: GEN: NAD, walking from restroom, settles in chair HEENT: Atraumatic, PERRL LUNGS: CTAB HEART: RRR ABD: NABS, S/ND/NT EXTREMITY: No edema SKIN: No rashes, no jaundice NEURO/PSYCH: A & O 3 A/P: A/P: Fever, confusion ?n/v - resolved Abnormal LFTs -GGT 232, AST 470, ALT 340, Alk Phos 182, normal bili -CT unrevealing w/ normal liver PREM, dark stools on iron -no previous EGD/colonoscopy -- Will recheck LFTs and also abd US. Regarding PREM, consider outpatient EGD and colonoscopy. Add empiric PPI. MANOLO YI Sep 24, 2016 09:40
[2016-09-24] MEDS ORDERED: ONDANSETRON PF 4 MG/2 ML VIAL. IV PRN (09:53)
[2016-09-24 10:44] LABS: ALBUMIN 3.3 g/dL (3.4-5.0); DIRECT BILIRUBIN 0.2 mg/dL (0.0-0.2); TOTAL BILIRUBIN 0.5 mg/dL (0.2-1.0); TOTAL PROTEIN 5.9 g/dL (6.4-8.2)
[2016-09-24 10:50] VITALS: BP 120/61
--- NOTE | 2016-09-24 11:13 | PDOC ---
PROGRESS NOTES Chief Complaint Chief Complaint Abd pain, nausea, emesis POA, resolved MEtabolic encephaloptahy, POA, resolved Abnormal LFTs -GGT 232, AST 470, ALT 340, Alk Phos 182, normal bili -CT unrevealing w/ normal liver PREM, dark stools on iron -no previous EGD/colonoscopy HTN, HLD, DM, peripheral neuropathy, CKD, parathyroidectomy, partial thyroidectomy, cataract extraction, cholecystectomy, hysterectomy History of Present Illness History of Present Illness DOing a lot better ALl symptoms POA has resolved Eager to go home LFTS high, GI note reviewed PLAN: Await GI round Add pT,OT Dw possible causes of her high LFts, education time signif Vitals Vitals Vital Signs Date Time Temp Pulse Resp B/P (MAP) Pulse Ox O2 Delivery O2 Flow Rate FiO2 09/24/16 09:11 Room Air 09/24/16 08:23 81 118/65 09/24/16 07:10 99.0 16 93 99.0 Physical Exam General: Alert, Cooperative, No acute distress, Other (oriented 3/4, family reports mental status below baseline) Abdomen: Normal bowel sounds, Soft, Other (fine pink rash on lower abdomen where she injects her Exanatide) Extremities: No clubbing, No cyanosis, No edema Skin: No breakdown, Other (diffuse fine pink rash on abd, not tender, no induration, ) Labs LABS Laboratory Tests Test 09/23/16 13:00 09/23/16 15:50 09/23/16 20:25 09/23/16 20:37 White Blood Count 4.5 x10^3/uL (4.0-11.0) Red Blood Count 4.01 x10^6/uL (3.50-5.40) Hemoglobin 10.8 g/dL (12.0-15.5) Hematocrit 32.0 % (36.0-47.0) Mean Corpuscular Volume 80 fL (79-100) Mean Corpuscular Hemoglobin 27 pg (25-35) Mean Corpuscular Hemoglobin Concent 34 g/dL (31-37) Red Cell Distribution Width 16.0 % (11.5-14.5) Platelet Count 280 x10^3/uL (140-400) Neutrophils (%) (Auto) 86 % (31-73) Lymphocytes (%) (Auto) 6 % (24-48) Monocytes (%) (Auto) 7 % (0-9) Eosinophils (%) (Auto) 1 % (0-3) Basophils (%) (Auto) 0 % (0-3) Neutrophils # (Auto) 3.8 x10^3uL (1.8-7.7) Lymphocytes # (Auto) 0.3 x10^3/uL (1.0-4.8) Monocytes # (Auto) 0.3 x10^3/uL (0.0-1.1) Eosinophils # (Auto) 0.0 x10^3/uL (0.0-0.7) Basophils # (Auto) 0.0 x10^3/uL (0.0-0.2) Segmented Neutrophils % 51 % (35-66) Band Neutrophils % 31 % (0-9) Lymphocytes % 11 % (24-48) Atypical Lymphocytes % (Manual) 1 % (0-0) Monocytes % 6 % (0-10) Platelet Estimate Adequate (ADEQUATE) Sodium Level 130 mmol/L (136-145) Potassium Level 3.9 mmol/L (3.5-5.1) Chloride Level 93 mmol/L (98-107) Carbon Dioxide Level 26 mmol/L (21-32) Anion Gap 11 (6-14) Blood Urea Nitrogen 9 mg/dL (7-20) Creatinine 0.8 mg/dL (0.6-1.0) Estimated GFR (Cockcroft-Gault) 69.6 BUN/Creatinine Ratio 11 (6-20) Glucose Level 199 mg/dL (70-99) Lactic Acid Level 1.3 mmol/L (0.4-2.0) 1.1 mmol/L (0.4-2.0) Calcium Level 9.2 mg/dL (8.5-10.1) Total Bilirubin 0.6 mg/dL (0.2-1.0) Aspartate Amino Transf (AST/SGOT) 470 U/L (15-37) Alanine Aminotransferase (ALT/SGPT) 340 U/L (14-59) Alkaline Phosphatase 182 U/L (46-116) Troponin I Quantitative < 0.017 ng/mL (0.000-0.055) Total Protein 6.8 g/dL (6.4-8.2) Albumin 3.8 g/dL (3.4-5.0) Albumin/Globulin Ratio 1.3 (1.0-1.7) Lipase 167 U/L (73-393) Urine Collection Type Unknown Urine Color Yellow Urine Clarity Cloudy Urine pH 7.5 Urine Specific Offerman 1.015 Urine Protein Negative mg/dL (NEG-TRACE) Urine Glucose (UA) Negative mg/dL (NEG) Urine Ketones (Stick) Negative mg/dL (NEG) Urine Blood Small (NEG) Urine Nitrite Negative (NEG) Urine Bilirubin Negative (NEG) Urine Urobilinogen Dipstick 0.2 mg/dL (0.2 mg/dL) Urine Leukocyte Esterase Small (NEG) Urine RBC 1-2 /HPF (0-2) Urine WBC 1-4 /HPF (0-4) Urine Squamous Epithelial Cells Few /LPF Urine Bacteria Many /HPF (0-FEW) Glucose (Fingerstick) 175 mg/dL (70-99) Test 09/24/16 03:00 09/24/16 03:05 09/24/16 07:13 Total Bilirubin 0.5 mg/dL (0.2-1.0) Direct Bilirubin 0.2 mg/dL (0.0-0.2) Aspartate Amino Transf (AST/SGOT) 245 U/L (15-37) Alanine Aminotransferase (ALT/SGPT) 264 U/L (14-59) Alkaline Phosphatase 153 U/L (46-116) Total Protein 5.9 g/dL (6.4-8.2) Albumin 3.3 g/dL (3.4-5.0) White Blood Count 3.7 x10^3/uL (4.0-11.0) Red Blood Count 3.55 x10^6/uL (3.50-5.40) Hemoglobin 9.5 g/dL (12.0-15.5) Hematocrit 28.4 % (36.0-47.0) Mean Corpuscular Volume 80 fL (79-100) Mean Corpuscular Hemoglobin 27 pg (25-35) Mean Corpuscular Hemoglobin Concent 33 g/dL (31-37) Red Cell Distribution Width 16.0 % (11.5-14.5) Platelet Count 243 x10^3/uL (140-400) Neutrophils (%) (Auto) 70 % (31-73) Lymphocytes (%) (Auto) 17 % (24-48) Monocytes (%) (Auto) 11 % (0-9) Eosinophils (%) (Auto) 1 % (0-3) Basophils (%) (Auto) 1 % (0-3) Neutrophils # (Auto) 2.6 x10^3uL (1.8-7.7) Lymphocytes # (Auto) 0.6 x10^3/uL (1.0-4.8) Monocytes # (Auto) 0.4 x10^3/uL (0.0-1.1) Eosinophils # (Auto) 0.0 x10^3/uL (0.0-0.7) Basophils # (Auto) 0.0 x10^3/uL (0.0-0.2) Sodium Level 133 mmol/L (136-145) Potassium Level 3.6 mmol/L (3.5-5.1) Chloride Level 99 mmol/L (98-107) Carbon Dioxide Level 25 mmol/L (21-32) Anion Gap 9 (6-14) Blood Urea Nitrogen 6 mg/dL (7-20) Creatinine 0.8 mg/dL (0.6-1.0) Estimated GFR (Cockcroft-Gault) 69.6 Glucose Level 89 mg/dL (70-99) Calcium Level 8.2 mg/dL (8.5-10.1) Iron Level 23 ug/dL (50-170) Total Iron Binding Capacity 305 ug/dL (250-450) Iron Saturation 8 % (15-34) Gamma Glutamyl Transpeptidase 232 U/L (5-55) Glucose (Fingerstick) 103 mg/dL (70-99) Review of Systems Review of Systems denies all 14 pt reviewed Assessment and Plan Assessmemt and Plan Problems Medical Problems: (1) Abdominal pain Status: Acute (2) Bandemia without diagnosis of specific infection Status: Acute (3) Hyponatremia Status: Acute (4) LFT elevation Status: Acute Problems: Comment Review of Relevant I have reviewed the following items judith (where applicable) has been applied. Labs Laboratory Tests Test 09/23/16 13:00 09/23/16 15:50 09/23/16 20:25 09/23/16 20:37 White Blood Count 4.5 x10^3/uL (4.0-11.0) Red Blood Count 4.01 x10^6/uL (3.50-5.40) Hemoglobin 10.8 g/dL (12.0-15.5) Hematocrit 32.0 % (36.0-47.0) Mean Corpuscular Volume 80 fL (79-100) Mean Corpuscular Hemoglobin 27 pg (25-35) Mean Corpuscular Hemoglobin Concent 34 g/dL (31-37) Red Cell Distribution Width 16.0 % (11.5-14.5) Platelet Count 280 x10^3/uL (140-400) Neutrophils (%) (Auto) 86 % (31-73) Lymphocytes (%) (Auto) 6 % (24-48) Monocytes (%) (Auto) 7 % (0-9) Eosinophils (%) (Auto) 1 % (0-3) Basophils (%) (Auto) 0 % (0-3) Neutrophils # (Auto) 3.8 x10^3uL (1.8-7.7) Lymphocytes # (Auto) 0.3 x10^3/uL (1.0-4.8) Monocytes # (Auto) 0.3 x10^3/uL (0.0-1.1) Eosinophils # (Auto) 0.0 x10^3/uL (0.0-0.7) Basophils # (Auto) 0.0 x10^3/uL (0.0-0.2) Segmented Neutrophils % 51 % (35-66) Band Neutrophils % 31 % (0-9) Lymphocytes % 11 % (24-48) Atypical Lymphocytes % (Manual) 1 % (0-0) Monocytes % 6 % (0-10) Platelet Estimate Adequate (ADEQUATE) Sodium Level 130 mmol/L (136-145) Potassium Level 3.9 mmol/L (3.5-5.1) Chloride Level 93 mmol/L (98-107) Carbon Dioxide Level 26 mmol/L (21-32) Anion Gap 11 (6-14) Blood Urea Nitrogen 9 mg/dL (7-20) Creatinine 0.8 mg/dL (0.6-1.0) Estimated GFR (Cockcroft-Gault) 69.6 BUN/Creatinine Ratio 11 (6-20) Glucose Level 199 mg/dL (70-99) Lactic Acid Level 1.3 mmol/L (0.4-2.0) 1.1 mmol/L (0.4-2.0) Calcium Level 9.2 mg/dL (8.5-10.1) Total Bilirubin 0.6 mg/dL (0.2-1.0) Aspartate Amino Transf (AST/SGOT) 470 U/L (15-37) Alanine Aminotransferase (ALT/SGPT) 340 U/L (14-59) Alkaline Phosphatase 182 U/L (46-116) Troponin I Quantitative < 0.017 ng/mL (0.000-0.055) Total Protein 6.8 g/dL (6.4-8.2) Albumin 3.8 g/dL (3.4-5.0) Albumin/Globulin Ratio 1.3 (1.0-1.7) Lipase 167 U/L (73-393) Urine Collection Type Unknown Urine Color Yellow Urine Clarity Cloudy Urine pH 7.5 Urine Specific Offerman 1.015 Urine Protein Negative mg/dL (NEG-TRACE) Urine Glucose (UA) Negative mg/dL (NEG) Urine Ketones (Stick) Negative mg/dL (NEG) Urine Blood Small (NEG) Urine Nitrite Negative (NEG) Urine Bilirubin Negative (NEG) Urine Urobilinogen Dipstick 0.2 mg/dL (0.2 mg/dL) Urine Leukocyte Esterase Small (NEG) Urine RBC 1-2 /HPF (0-2) Urine WBC 1-4 /HPF (0-4) Urine Squamous Epithelial Cells Few /LPF Urine Bacteria Many /HPF (0-FEW) Glucose (Fingerstick) 175 mg/dL (70-99) Test 09/24/16 03:00 09/24/16 03:05 09/24/16 07:13 Total Bilirubin 0.5 mg/dL (0.2-1.0) Direct Bilirubin 0.2 mg/dL (0.0-0.2) Aspartate Amino Transf (AST/SGOT) 245 U/L (15-37) Alanine Aminotransferase (ALT/SGPT) 264 U/L (14-59) Alkaline Phosphatase 153 U/L (46-116) Total Protein 5.9 g/dL (6.4-8.2) Albumin 3.3 g/dL (3.4-5.0) White Blood Count 3.7 x10^3/uL (4.0-11.0) Red Blood Count 3.55 x10^6/uL (3.50-5.40) Hemoglobin 9.5 g/dL (12.0-15.5) Hematocrit 28.4 % (36.0-47.0) Mean Corpuscular Volume 80 fL (79-100) Mean Corpuscular Hemoglobin 27 pg (25-35) Mean Corpuscular Hemoglobin Concent 33 g/dL (31-37) Red Cell Distribution Width 16.0 % (11.5-14.5) Platelet Count 243 x10^3/uL (140-400) Neutrophils (%) (Auto) 70 % (31-73) Lymphocytes (%) (Auto) 17 % (24-48) Monocytes (%) (Auto) 11 % (0-9) Eosinophils (%) (Auto) 1 % (0-3) Basophils (%) (Auto) 1 % (0-3) Neutrophils # (Auto) 2.6 x10^3uL (1.8-7.7) Lymphocytes # (Auto) 0.6 x10^3/uL (1.0-4.8) Monocytes # (Auto) 0.4 x10^3/uL (0.0-1.1) Eosinophils # (Auto) 0.0 x10^3/uL (0.0-0.7) Basophils # (Auto) 0.0 x10^3/uL (0.0-0.2) Sodium Level 133 mmol/L (136-145) Potassium Level 3.6 mmol/L (3.5-5.1) Chloride Level 99 mmol/L (98-107) Carbon Dioxide Level 25 mmol/L (21-32) Anion Gap 9 (6-14) Blood Urea Nitrogen 6 mg/dL (7-20) Creatinine 0.8 mg/dL (0.6-1.0) Estimated GFR (Cockcroft-Gault) 69.6 Glucose Level 89 mg/dL (70-99) Calcium Level 8.2 mg/dL (8.5-10.1) Iron Level 23 ug/dL (50-170) Total Iron Binding Capacity 305 ug/dL (250-450) Iron Saturation 8 % (15-34) Gamma Glutamyl Transpeptidase 232 U/L (5-55) Glucose (Fingerstick) 103 mg/dL (70-99) Laboratory Tests Test 09/23/16 13:00 09/23/16 15:50 09/23/16 20:25 09/23/16 20:37 White Blood Count 4.5 x10^3/uL (4.0-11.0) Red Blood Count 4.01 x10^6/uL (3.50-5.40) Hemoglobin 10.8 g/dL (12.0-15.5) Hematocrit 32.0 % (36.0-47.0) Mean Corpuscular Volume 80 fL (79-100) Mean Corpuscular Hemoglobin 27 pg (25-35) Mean Corpuscular Hemoglobin Concent 34 g/dL (31-37) Red Cell Distribution Width 16.0 % (11.5-14.5) Platelet Count 280 x10^3/uL (140-400) Neutrophils (%) (Auto) 86 % (31-73) Lymphocytes (%) (Auto) 6 % (24-48) Monocytes (%) (Auto) 7 % (0-9) Eosinophils (%) (Auto) 1 % (0-3) Basophils (%) (Auto) 0 % (0-3) Neutrophils # (Auto) 3.8 x10^3uL (1.8-7.7) Lymphocytes # (Auto) 0.3 x10^3/uL (1.0-4.8) Monocytes # (Auto) 0.3 x10^3/uL (0.0-1.1) Eosinophils # (Auto) 0.0 x10^3/uL (0.0-0.7) Basophils # (Auto) 0.0 x10^3/uL (0.0-0.2) Segmented Neutrophils % 51 % (35-66) Band Neutrophils % 31 % (0-9) Lymphocytes % 11 % (24-48) Atypical Lymphocytes % (Manual) 1 % (0-0) Monocytes % 6 % (0-10) Platelet Estimate Adequate (ADEQUATE) Sodium Level 130 mmol/L (136-145) Potassium Level 3.9 mmol/L (3.5-5.1) Chloride Level 93 mmol/L (98-107) Carbon Dioxide Level 26 mmol/L (21-32) Anion Gap 11 (6-14) Blood Urea Nitrogen 9 mg/dL (7-20) Creatinine 0.8 mg/dL (0.6-1.0) Estimated GFR (Cockcroft-Gault) 69.6 BUN/Creatinine Ratio 11 (6-20) Glucose Level 199 mg/dL (70-99) Lactic Acid Level 1.3 mmol/L (0.4-2.0) 1.1 mmol/L (0.4-2.0) Calcium Level 9.2 mg/dL (8.5-10.1) Total Bilirubin 0.6 mg/dL (0.2-1.0) Aspartate Amino Transf (AST/SGOT) 470 U/L (15-37) Alanine Aminotransferase (ALT/SGPT) 340 U/L (14-59) Alkaline Phosphatase 182 U/L (46-116) Troponin I Quantitative < 0.017 ng/mL (0.000-0.055) Total Protein 6.8 g/dL (6.4-8.2) Albumin 3.8 g/dL (3.4-5.0) Albumin/Globulin Ratio 1.3 (1.0-1.7) Lipase 167 U/L (73-393) Urine Collection Type Unknown Urine Color Yellow Urine Clarity Cloudy Urine pH 7.5 Urine Specific Offerman 1.015 Urine Protein Negative mg/dL (NEG-TRACE) Urine Glucose (UA) Negative mg/dL (NEG) Urine Ketones (Stick) Negative mg/dL (NEG) Urine Blood Small (NEG) Urine Nitrite Negative (NEG) Urine Bilirubin Negative (NEG) Urine Urobilinogen Dipstick 0.2 mg/dL (0.2 mg/dL) Urine Leukocyte Esterase Small (NEG) Urine RBC 1-2 /HPF (0-2) Urine WBC 1-4 /HPF (0-4) Urine Squamous Epithelial Cells Few /LPF Urine Bacteria Many /HPF (0-FEW) Glucose (Fingerstick) 175 mg/dL (70-99) Test 09/24/16 03:00 09/24/16 03:05 09/24/16 07:13 Total Bilirubin 0.5 mg/dL (0.2-1.0) Direct Bilirubin 0.2 mg/dL (0.0-0.2) Aspartate Amino Transf (AST/SGOT) 245 U/L (15-37) Alanine Aminotransferase (ALT/SGPT) 264 U/L (14-59) Alkaline Phosphatase 153 U/L (46-116) Total Protein 5.9 g/dL (6.4-8.2) Albumin 3.3 g/dL (3.4-5.0) White Blood Count 3.7 x10^3/uL (4.0-11.0) Red Blood Count 3.55 x10^6/uL (3.50-5.40) Hemoglobin 9.5 g/dL (12.0-15.5) Hematocrit 28.4 % (36.0-47.0) Mean Corpuscular Volume 80 fL (79-100) Mean Corpuscular Hemoglobin 27 pg (25-35) Mean Corpuscular Hemoglobin Concent 33 g/dL (31-37) Red Cell Distribution Width 16.0 % (11.5-14.5) Platelet Count 243 x10^3/uL (140-400) Neutrophils (%) (Auto) 70 % (31-73) Lymphocytes (%) (Auto) 17 % (24-48) Monocytes (%) (Auto) 11 % (0-9) Eosinophils (%) (Auto) 1 % (0-3) Basophils (%) (Auto) 1 % (0-3) Neutrophils # (Auto) 2.6 x10^3uL (1.8-7.7) Lymphocytes # (Auto) 0.6 x10^3/uL (1.0-4.8) Monocytes # (Auto) 0.4 x10^3/uL (0.0-1.1) Eosinophils # (Auto) 0.0 x10^3/uL (0.0-0.7) Basophils # (Auto) 0.0 x10^3/uL (0.0-0.2) Sodium Level 133 mmol/L (136-145) Potassium Level 3.6 mmol/L (3.5-5.1) Chloride Level 99 mmol/L (98-107) Carbon Dioxide Level 25 mmol/L (21-32) Anion Gap 9 (6-14) Blood Urea Nitrogen 6 mg/dL (7-20) Creatinine 0.8 mg/dL (0.6-1.0) Estimated GFR (Cockcroft-Gault) 69.6 Glucose Level 89 mg/dL (70-99) Calcium Level 8.2 mg/dL (8.5-10.1) Iron Level 23 ug/dL (50-170) Total Iron Binding Capacity 305 ug/dL (250-450) Iron Saturation 8 % (15-34) Gamma Glutamyl Transpeptidase 232 U/L (5-55) Glucose (Fingerstick) 103 mg/dL (70-99) Medications Current Medications Sodium Chloride 1,000 ml @ 1,000 mls/hr Q1H IV Last administered on 09/23/16 13:34; Start 09/23/16 at 13:24; Stop 09/23/16 at 14:23; Status DC Ondansetron HCl (Zofran) 4 mg 1X ONCE IV Last administered on 09/23/16 13:34; Start 09/23/16 at 13:30; Stop 09/23/16 at 13:31; Status DC Iohexol (Omnipaque 300 Mg/ml) 75 ml 1X ONCE IV Last administered on 09/23/16 15:13; Start 09/23/16 at 14:30; Stop 09/23/16 at 14:31; Status DC Info (Do NOT chart on this entry -- for MONITORING) 1 each PRN DAILY PRN MC SEE COMMENTS; Start 09/23/16 at 14:30; Stop 09/25/16 at 14:29 Vancomycin HCl (Vanco Per Pharmacy) 1 each PRN DAILY PRN MC SEE COMMENTS Last administered on 09/23/16 19:47; Start 09/23/16 at 17:15 Cefepime HCl 2 gm/ Sodium Chloride 100 ml @ 200 mls/hr Q12HR IV Last administered on 09/24/16 08:24; Start 09/23/16 at 17:30 Vancomycin HCl 1.75 gm/Sodium Chloride 500 ml @ 250 mls/hr 1X ONCE IV Last administered on 09/23/16 18:39; Start 09/23/16 at 17:15; Stop 09/23/16 at 19:14; Status DC Ondansetron HCl (Zofran) 4 mg PRN Q8HRS PRN IV NAUSEA/VOMITING; Start 09/23/16 at 18:45; Stop 09/24/16 at 09:54; Status DC Fentanyl Citrate (Fentanyl 2ml Vial) 50 mcg PRN Q2HR PRN IV PAIN; Start at 18:45; Stop 09/24/16 at 18:44 Sodium Chloride 1,000 ml @ 125 mls/hr Q8H IV Last administered on 09/24/16 02: 41; Start 09/23/16 at 18:41; Stop 09/24/16 at 18:40 Acetaminophen (Tylenol) 650 mg PRN Q4HRS PRN PO FEVER; Start 09/23/16 at 18:45; Stop 09/24/16 at 18:44 Insulin Aspart (NovoLOG) 0-5 UNITS TIDWMEALS SQ ; Start 09/24/16 at 08:00 Dextrose (Dextrose 50%-Water Syringe) 12.5 gm PRN Q15MIN PRN IV SEE COMMENTS; Start 09/23/16 at 18:45 Vancomycin HCl 1 gm/Sodium Chloride 250 ml @ 250 mls/hr Q24H IV ; Start at 18:30 Vancomycin HCl 1 each 1X ONCE MC ; Start 09/25/16 at 18:00; Stop 09/25/16 at 18: 01 Insulin Aspart (NovoLOG) 0-7 UNITS QIDACHS SQ ; Start 09/23/16 at 21:00 Dextrose (Dextrose 50%-Water Syringe) 12.5 gm PRN Q15MIN PRN IV SEE COMMENTS; Start 09/23/16 at 20:15; Status UNV Atorvastatin Calcium (Lipitor) 40 mg QHS PO Last administered on 09/23/16 21:23 ; Start 09/23/16 at 21:00 Gabapentin (Neurontin) 100 mg BID PO Last administered on 09/24/16 08:22; Start 09/23/16 at 21:00 Acetaminophen/ Hydrocodone Bitart (Lortab 5/325) 1 tab PRN Q4HRS PRN PO MILD PAIN; Start 09/23/16 at 20:15 Metformin HCl (Glucophage) 1,000 mg BIDWMEALS PO ; Start 09/26/16 at 08:00 Insulin Detemir (Levemir) 15 units QHS SQ Last administered on 09/23/16 21:38; Start 09/23/16 at 21:00 Losartan Potassium (Cozaar) 100 mg DAILY PO Last administered on 09/24/16 08:23 ; Start 09/23/16 at 21:00 Zinc Acetate/ Diphenhydramine (Benadryl Topical) 1 chandu TID TP Last administered on 09/23/16 21:35; Start 09/23/16 at 21:00 Docusate Sodium (Colace) 100 mg PRN DAILY PRN PO CONSTIPATION; Start 09/23/16 at 20:30 Ondansetron HCl (Zofran) 4 mg PRN Q6HRS PRN IV NAUSEA/VOMITING; Start 09/24/16 at 09:53; Stop 09/25/16 at 09:52 Pantoprazole Sodium (Protonix) 40 mg DAILYAC PO ; Start 09/24/16 at 11:30 Active Scripts Active Hydrocodone-Apap 5-325 (Hydrocodone Bit/Acetaminophen) 1 Each Tablet 1 Tab PO PRN Q4HRS PRN Reported Bydureon (Exenatide Microspheres) 2 Mg Vial 2 Mg SQ WEEKLY Losartan Potassium 100 Mg Tablet 100 Mg PO HS Gabapentin 100 Mg Capsule 100 Mg PO QHS Metformin Hcl 1,000 Mg Tablet 1,000 Mg PO BID Alendronate Sodium 70 Mg Tablet 70 Mg PO WEEKLY PATIENT TAKES ON SATURDAY Atorvastatin Calcium 40 Mg Tablet 40 Mg PO QPM Lantus Solostar (Insulin Glargine,Hum.rec.anlog) 100 Unit/1 Ml Insuln.pen 15 Units SQ QHS Vitals/I & O Vital Sign - Last 24 Hours 09/23/16 09/23/16 09/23/16 09/23/16 12:49 13:20 13:50 14:20 Temp 99.0 99.0 Pulse 94 88 86 86 Resp 20 26 32 19 B/P (MAP) 160/73 (102) 144/66 (92) 129/66 (87) 148/69 (95) Pulse Ox 96 94 O2 Delivery Room Air Room Air 09/23/16 09/23/16 09/23/16 09/23/16 14:50 15:40 16:50 19:05 Temp 98.4 99.3 98.4 99.3 Pulse 90 88 84 92 Resp 23 28 21 18 B/P (MAP) 160/69 (99) 129/69 (89) 132/63 (86) 132/58 (82) Pulse Ox 95 97 O2 Delivery Room Air 09/23/16 09/23/16 09/23/16 09/23/16 19:52 20:00 21:23 23:19 Temp 99.3 99.0 99.3 99.0 Pulse 92 92 86 Resp 18 16 B/P (MAP) 132/58 (82) 132/58 97/46 (63) Pulse Ox 97 92 O2 Delivery Room Air Room Air Room Air 09/24/16 09/24/16 09/24/16 09/24/16 03:36 07:10 08:23 09:11 Temp 99.2 99.0 99.2 99.0 Pulse 86 81 81 Resp 18 16 B/P (MAP) 96/31 (52) 118/65 (82) 118/65 Pulse Ox 96 93 O2 Delivery Room Air Room Air Room Air Intake and Output 09/23/16 09/23/16 09/24/16 15:00 23:00 07:00 Intake Total 1100 ml 400 ml Balance 1100 ml 400 ml DARCY HILL MD Sep 24, 2016 11:13
--- NOTE | 2016-09-24 11:19 | PDOC ---
Infectious Disease Note ROS ROS GEN: Denies fevers, chills, sweats HEENT: Denies blurred vision, sore throat CV: Denies chest pain RESP: Denies shortness of air, cough GI: Denies n/v/d NEURO: Denies confusion, dizziness MSK: Denies weakness, joint pain/swelling Vital Sign Vital Signs Vital Signs Date Time Temp Pulse Resp B/P (MAP) Pulse Ox O2 Delivery O2 Flow Rate FiO2 09/24/16 09:11 Room Air 09/24/16 08:23 81 118/65 09/24/16 07:10 99.0 16 93 99.0 Physical Exam PHYSICAL EXAM GENERAL: NAD, Alert HEENT: PERRL, OC/OP NECK: Supple, no JVD, no LN LUNGS: Clear HEART: S1S2, no gallop, no murmur ABD: Soft, NT, no organomegaly, no rebound EXT: No edema, no cyanosis [employer]OR [employer]: Alert, oriented x 3, no focal neurologic deficit SKIN: No rash IV: ok Labs Lab Laboratory Tests Test 09/23/16 13:00 09/23/16 15:50 09/23/16 20:25 09/23/16 20:37 White Blood Count 4.5 x10^3/uL (4.0-11.0) Red Blood Count 4.01 x10^6/uL (3.50-5.40) Hemoglobin 10.8 g/dL (12.0-15.5) Hematocrit 32.0 % (36.0-47.0) Mean Corpuscular Volume 80 fL (79-100) Mean Corpuscular Hemoglobin 27 pg (25-35) Mean Corpuscular Hemoglobin Concent 34 g/dL (31-37) Red Cell Distribution Width 16.0 % (11.5-14.5) Platelet Count 280 x10^3/uL (140-400) Neutrophils (%) (Auto) 86 % (31-73) Lymphocytes (%) (Auto) 6 % (24-48) Monocytes (%) (Auto) 7 % (0-9) Eosinophils (%) (Auto) 1 % (0-3) Basophils (%) (Auto) 0 % (0-3) Neutrophils # (Auto) 3.8 x10^3uL (1.8-7.7) Lymphocytes # (Auto) 0.3 x10^3/uL (1.0-4.8) Monocytes # (Auto) 0.3 x10^3/uL (0.0-1.1) Eosinophils # (Auto) 0.0 x10^3/uL (0.0-0.7) Basophils # (Auto) 0.0 x10^3/uL (0.0-0.2) Segmented Neutrophils % 51 % (35-66) Band Neutrophils % 31 % (0-9) Lymphocytes % 11 % (24-48) Atypical Lymphocytes % (Manual) 1 % (0-0) Monocytes % 6 % (0-10) Platelet Estimate Adequate (ADEQUATE) Sodium Level 130 mmol/L (136-145) Potassium Level 3.9 mmol/L (3.5-5.1) Chloride Level 93 mmol/L (98-107) Carbon Dioxide Level 26 mmol/L (21-32) Anion Gap 11 (6-14) Blood Urea Nitrogen 9 mg/dL (7-20) Creatinine 0.8 mg/dL (0.6-1.0) Estimated GFR (Cockcroft-Gault) 69.6 BUN/Creatinine Ratio 11 (6-20) Glucose Level 199 mg/dL (70-99) Lactic Acid Level 1.3 mmol/L (0.4-2.0) 1.1 mmol/L (0.4-2.0) Calcium Level 9.2 mg/dL (8.5-10.1) Total Bilirubin 0.6 mg/dL (0.2-1.0) Aspartate Amino Transf (AST/SGOT) 470 U/L (15-37) Alanine Aminotransferase (ALT/SGPT) 340 U/L (14-59) Alkaline Phosphatase 182 U/L (46-116) Troponin I Quantitative < 0.017 ng/mL (0.000-0.055) Total Protein 6.8 g/dL (6.4-8.2) Albumin 3.8 g/dL (3.4-5.0) Albumin/Globulin Ratio 1.3 (1.0-1.7) Lipase 167 U/L (73-393) Urine Collection Type Unknown Urine Color Yellow Urine Clarity Cloudy Urine pH 7.5 Urine Specific [place] 1.015 Urine Protein Negative mg/dL (NEG-TRACE) Urine Glucose (UA) Negative mg/dL (NEG) Urine Ketones (Stick) Negative mg/dL (NEG) Urine Blood Small (NEG) Urine Nitrite Negative (NEG) Urine Bilirubin Negative (NEG) Urine Urobilinogen Dipstick 0.2 mg/dL (0.2 mg/dL) Urine Leukocyte Esterase Small (NEG) Urine RBC 1-2 /HPF (0-2) Urine WBC 1-4 /HPF (0-4) Urine Squamous Epithelial Cells Few /LPF Urine Bacteria Many /HPF (0-FEW) Glucose (Fingerstick) 175 mg/dL (70-99) Test 09/24/16 03:00 09/24/16 03:05 09/24/16 07:13 Total Bilirubin 0.5 mg/dL (0.2-1.0) Direct Bilirubin 0.2 mg/dL (0.0-0.2) Aspartate Amino Transf (AST/SGOT) 245 U/L (15-37) Alanine Aminotransferase (ALT/SGPT) 264 U/L (14-59) Alkaline Phosphatase 153 U/L (46-116) Total Protein 5.9 g/dL (6.4-8.2) Albumin 3.3 g/dL (3.4-5.0) White Blood Count 3.7 x10^3/uL (4.0-11.0) Red Blood Count 3.55 x10^6/uL (3.50-5.40) Hemoglobin 9.5 g/dL (12.0-15.5) Hematocrit 28.4 % (36.0-47.0) Mean Corpuscular Volume 80 fL (79-100) Mean Corpuscular Hemoglobin 27 pg (25-35) Mean Corpuscular Hemoglobin Concent 33 g/dL (31-37) Red Cell Distribution Width 16.0 % (11.5-14.5) Platelet Count 243 x10^3/uL (140-400) Neutrophils (%) (Auto) 70 % (31-73) Lymphocytes (%) (Auto) 17 % (24-48) Monocytes (%) (Auto) 11 % (0-9) Eosinophils (%) (Auto) 1 % (0-3) Basophils (%) (Auto) 1 % (0-3) Neutrophils # (Auto) 2.6 x10^3uL (1.8-7.7) Lymphocytes # (Auto) 0.6 x10^3/uL (1.0-4.8) Monocytes # (Auto) 0.4 x10^3/uL (0.0-1.1) Eosinophils # (Auto) 0.0 x10^3/uL (0.0-0.7) Basophils # (Auto) 0.0 x10^3/uL (0.0-0.2) Sodium Level 133 mmol/L (136-145) Potassium Level 3.6 mmol/L (3.5-5.1) Chloride Level 99 mmol/L (98-107) Carbon Dioxide Level 25 mmol/L (21-32) Anion Gap 9 (6-14) Blood Urea Nitrogen 6 mg/dL (7-20) Creatinine 0.8 mg/dL (0.6-1.0) Estimated GFR (Cockcroft-Gault) 69.6 Glucose Level 89 mg/dL (70-99) Calcium Level 8.2 mg/dL (8.5-10.1) Iron Level 23 ug/dL (50-170) Total Iron Binding Capacity 305 ug/dL (250-450) Iron Saturation 8 % (15-34) Gamma Glutamyl Transpeptidase 232 U/L (5-55) Glucose (Fingerstick) 103 mg/dL (70-99) Objective Assessment ? sepsis ? UTI POA Leukocytopenia Transaminitis Plan Plan of Care Could be viral infection given leukopenia and transamititis - better already Cont Vanc/Cefepime F/u Abd U/S F/u labs and cults Check Procalcitonin/TSH D/w family Thank you # [id number] JOANNE VALERIO MD Sep 24, 2016 11:19
[2016-09-24] MEDS: VANCOMYCIN PER PHARMACY MC PRN ×3 (12:02→13:12)
[2016-09-24] MEDS: PANTOPRAZOLE 40 MG TABLET.DR. PO SCH (14:06)
--- NOTE | 2016-09-24 14:34 | RAD ---
Ultrasound of the right upper quadrant of the abdomen 09/24/2016 Clinical history: Elevated liver function tests. Technique: A real-time ultrasound examination of the right upper quadrant of the abdomen was performed. Multiple images were obtained. Findings: Comparison is made to a CT scan of the abdomen dated 09/23/2016. The gallbladder is not visualized consistent with a cholecystectomy. The liver is normal in size measuring 13 cm in length. No focal abnormality of the liver is noted. The common bile duct measures 5 mm in diameter which is within normal limits. A 2.6 cm simple cyst is seen involving the superior pole of the right kidney. The visualized portions of the pancreas is within normal limits. Impression: Status post cholecystectomy. Otherwise negative study.
[2016-09-24 14:40] VITALS: BP 122/44
[2016-09-24 15:20] LABS: HEP A IGM ABDY Negative (Negative)
[2016-09-24] MEDS ORDERED: VANCOMYCIN 1 GM in IV NORMAL SALINE 250ML 250 ML IV SCH (18:30)
[2016-09-24 19:05] VITALS: BP 138/64
[2016-09-24] MEDS: ATORVASTATIN CALCIUM 40 MG TABLET. PO SCH (20:29)
[2016-09-24] MEDS: INSULIN DETEMIR 300 UNITS/3 ML INSULN.PEN. SQ SCH (20:36)
[2016-09-24 23:10] VITALS: BP_SYST 107; BP_SYST 134; BP_DIAS 45; BP_DIAS 70
--- NOTE | 2016-09-25 01:11 | CONS ---
DATE OF CONSULTATION: 09/24/2016 PATIENT'S ROOM: 650. REQUESTING PHYSICIAN: Dr. Bruce. REASON FOR CONSULTATION: Questionable sepsis. HISTORY OF PRESENT ILLNESS: The patient is a pleasant 75-year-old female with history of diabetes, also has a history of previous parathyroidectomy. She states that her family noticed a little heavy mental status change developing approximately last Saturday or Saturday. She states that the last time this occurred she had a urinary tract infection. She does have a history of previous E. coli urinary tract infection. About 2 days ago or so, she began to have some nausea, vomiting and developed low-grade fevers and she presented to [facility]. She denies any bug bites or tick bites and denies any ill contacts. On arrival, she had a white blood cell count of 4.5, but she had 31% bands. Additionally, her liver tests were elevated with an AST of 470, ALT of 340, alkaline phosphatase was 182. She had low-grade temp run in the 99s. She was admitted to the hospital and placed on vancomycin as well as cefepime. Urinalysis had few squamous, many bacteria, 1-4 wbc's, leukocyte esterase was small. She underwent a CT scan of the abdomen and pelvis, did not show any acute process, was with IV contrast only. Chest x-ray was essentially negative. Currently, the patient is sitting in a chair, states she is feeling much better. She is hopefully going to have her diet advanced. She denies any dysuria, frequency or urgency. PAST MEDICAL HISTORY: Positive for the previous E. coli urinary tract infection, as mentioned above is resistant to Unasyn. She has also had a history of diabetes, hypertension, hyperlipidemia, peripheral neuropathy and chronic kidney disease. PAST SURGICAL HISTORY: Positive for parathyroidectomy, partial thyroidectomy, cataract extraction, cholecystectomy and hysterectomy. REVIEW OF SYSTEMS: Otherwise negative except as mentioned above. ALLERGIES: No antibiotic allergies. She has CODEINE AND TRAMADOL listed. SOCIAL HISTORY: She is . is with her. She has a supportive family. No alcohol or tobacco. FAMILY HISTORY: Noncontributory. CURRENT MEDICATIONS: Include vancomycin and cefepime. She also takes iron at home. She is on insulin, Cozaar, metformin and Protonix. Other meds are available and reviewed in the chart. PHYSICAL EXAMINATION: VITAL SIGNS: She is afebrile. T-max has been 99.3, currently at 97.9, pulse 79, respirations 18, blood pressure 120/61, satting 96% on room air. CONSTITUTIONAL: She is very pleasant. She is cooperative. She is no acute distress, she is sitting in a chair. HEENT: Pupils are status post cataract surgery. She has normal conjunctivae. Oral cavity, pharynx is clear. NECK: Supple, no JVD. LUNGS: Clear to auscultation bilaterally. HEART: S1, S2. ABDOMEN: Soft, nontender, nondistended, positive bowel sounds, no guarding, no rebound, no CVA tenderness. EXTREMITIES: Without clubbing or cyanosis. She has trace edema. SKIN: Warm to touch without signs of rash. NEUROLOGIC: She is nonfocal, moves all extremities. PSYCHIATRIC: Affect is pleasant. LABORATORY DATA: White count 37, hemoglobin 9.5, platelets of 240 with 70 neutrophils, 17 lymphs. Glucose most recently of 103. Creatinine is 0.8, AST improved to 245, ALT 264, alk phos 153. Urinalysis reviewed in history of present illness as well as Radiology, although the abdominal CT scan showed some may be mildly distended urinary bladder. IMPRESSION: 1. Questionable sepsis. 2. Questionable urinary tract infection present on admission. 3. Leukopenia. 4. Transaminitis. RECOMMENDATIONS: This could be a viral infection given the leukopenia as well as transaminitis. She is already feeling better. For now, continue the vancomycin and cefepime with a history of previous urinary tract infection. We will followup on the abdominal ultrasound that has been ordered. Follow up on labs and cultures. We will check a procalcitonin as well as TSH level. Thank you for participating in the patient's care. If you have any questions, please do not hesitate to contact me. JOANNE VALERIO MD DR: TYSHAWN/rodney JOB#: [id number] / [id number]
[2016-09-25 03:10] VITALS: BP 124/61
[2016-09-25 07:00] VITALS: BP 126/62
[2016-09-25] MEDS: INSULIN ASPART 300 UNITS/3 ML INSULN.PEN SQ SCH ×3 (07:30→12:29)
[2016-09-25] MEDS: GABAPENTIN 100 MG CAPSULE. PO SCH (09:23)
[2016-09-25] MEDS: PANTOPRAZOLE 40 MG TABLET.DR. PO SCH (09:23)
[2016-09-25] MEDS: LOSARTAN POTASSIUM 50 MG TABLET. PO SCH (09:23)
[2016-09-25] MEDS: CEFEPIME HCL 2 GM in IV NORMAL SALINE 100ML 100 ML IV SCH (09:24)
[2016-09-25] MEDS: DIPHENHYDRAMINE/ZINC ACETATE 2%/0.1% TOPICAL CREAM 28GM TUBE. TP SCH (09:24)
--- NOTE | 2016-09-25 10:43 | PDOC ---
Infectious Disease Note Subjective Subjective Doing ok but constipated ROS ROS GEN: Denies fevers, chills, sweats HEENT: Denies blurred vision, sore throat CV: Denies chest pain RESP: Denies shortness of air, cough GI: Denies n/v/d NEURO: Denies confusion, dizziness MSK: Denies weakness, joint pain/swelling Vital Sign Vital Signs Vital Signs Date Time Temp Pulse Resp B/P (MAP) Pulse Ox O2 Delivery O2 Flow Rate FiO2 09/25/16 09:23 79 126/62 09/25/16 07:00 97.7 20 94 Room Air 97.7 09/24/16 23:10 Physical Exam PHYSICAL EXAM GENERAL: NAD, Alert, in chair HEENT: PERRL, OC/OP - clear NECK: Supple, no JVD, no LN LUNGS: Clear HEART: S1S2, no gallop, no murmur ABD: Soft, NT, no organomegaly, no rebound EXT: No edema, no cyanosis TECHNICAL SERVICES MANAGER: Alert, oriented x 3, no focal neurologic deficit SKIN: No rash IV: ok Labs Lab Laboratory Tests Test 09/24/16 12:22 09/24/16 16:31 09/24/16 20:28 09/25/16 07:14 Glucose (Fingerstick) 118 mg/dL (70-99) 164 mg/dL (70-99) 184 mg/dL (70-99) 86 mg/dL (70-99) Objective Assessment ? sepsis Ecoli UTI POA 09/23 - Res amp and Pip BUT O/W SENS Leukocytopenia Transaminitis - U/s - neg Plan Plan of Care Discont Vanc/Cefepime Dose Rocephin F/u labs this am and cults If labs ok could d/c home with Cephalexin for 7 days to start 09/26 D/w family JOANNE VALERIO MD Sep 25, 2016 10:43
[2016-09-25 10:45] LABS: BASO % 1 % (0-3); EOS % 5 % (0-3); HEMATOCRIT 30.4 % (36.0-47.0); LYMPH # 0.7 x10^3/uL (1.0-4.8); LYMPH % 20 % (24-48); MEAN CORPUSCULAR HEMOGLOBIN 26 pg (25-35); MEAN CORPUSCULAR HGB CONC 33 g/dL (31-37); MEAN CORPUSCULAR VOLUME 80 fL (79-100); MONO % 12 % (0-9); NEUT % 63 % (31-73); PLATELET COUNT 270 x10^3/uL (140-400); RED CELL DISTRIBUTION WIDTH 16.6 % (11.5-14.5); WHITE BLOOD COUNT 3.4 x10^3/uL (4.0-11.0)
[2016-09-25 10:56] LABS: ALBUMIN 3.3 g/dL (3.4-5.0); CALCIUM 8.4 mg/dL (8.5-10.1); CREATININE 0.7 mg/dL (0.6-1.0); GFR 81.1; POTASSIUM 3.9 mmol/L (3.5-5.1); TOTAL BILIRUBIN 0.8 mg/dL (0.2-1.0); TOTAL PROTEIN 6.7 g/dL (6.4-8.2)
[2016-09-25 11:00] VITALS: BP 143/71
--- NOTE | 2016-09-25 11:36 | PDOC3 ---
Discharge Summary Visit Information Date of Admission: Sep 23, 2016 Date of Discharge: Sep 25, 2016 Admitting Diagnosis Comment: GNR UTI Abd pain, nausea, emesis POA, resolved MEtabolic encephaloptahy, POA, resolved Abnormal LFTs -GGT 232, AST 470, ALT 340, Alk Phos 182, normal bili -CT unrevealing w/ normal liver PREM, dark stools on iron -no previous EGD/colonoscopy HTN, HLD, DM, peripheral neuropathy, CKD, parathyroidectomy, partial thyroidectomy, cataract extraction, cholecystectomy, hysterectomy Final Diagnosis Problems Medical Problems: (1) Abdominal pain Status: Acute (2) Bandemia without diagnosis of specific infection Status: Acute (3) Hyponatremia Status: Acute (4) LFT elevation Status: Acute Brief Hospital Course Allergies Allergies Coded Allergies Type Severity Reaction Last Updated Verified codeine Allergy Intermediate Nausea and Vomiting 10/03/15 Yes tramadol Allergy Intermediate Nausea and Vomiting 10/03/15 Yes Vital Signs Vital Signs Date Time Temp Pulse Resp B/P (MAP) Pulse Ox O2 Delivery O2 Flow Rate FiO2 09/25/16 11:00 97.6 86 18 143/71 (95) 96 Room Air 97.6 09/24/16 23:10 Lab Results Laboratory Tests Test 09/23/16 13:00 09/23/16 15:50 09/23/16 20:25 09/23/16 20:37 White Blood Count 4.5 x10^3/uL (4.0-11.0) Red Blood Count 4.01 x10^6/uL (3.50-5.40) Hemoglobin 10.8 g/dL (12.0-15.5) Hematocrit 32.0 % (36.0-47.0) Mean Corpuscular Volume 80 fL (79-100) Mean Corpuscular Hemoglobin 27 pg (25-35) Mean Corpuscular Hemoglobin Concent 34 g/dL (31-37) Red Cell Distribution Width 16.0 % (11.5-14.5) Platelet Count 280 x10^3/uL (140-400) Neutrophils (%) (Auto) 86 % (31-73) Lymphocytes (%) (Auto) 6 % (24-48) Monocytes (%) (Auto) 7 % (0-9) Eosinophils (%) (Auto) 1 % (0-3) Basophils (%) (Auto) 0 % (0-3) Neutrophils # (Auto) 3.8 x10^3uL (1.8-7.7) Lymphocytes # (Auto) 0.3 x10^3/uL (1.0-4.8) Monocytes # (Auto) 0.3 x10^3/uL (0.0-1.1) Eosinophils # (Auto) 0.0 x10^3/uL (0.0-0.7) Basophils # (Auto) 0.0 x10^3/uL (0.0-0.2) Segmented Neutrophils % 51 % (35-66) Band Neutrophils % 31 % (0-9) Lymphocytes % 11 % (24-48) Atypical Lymphocytes % (Manual) 1 % (0-0) Monocytes % 6 % (0-10) Platelet Estimate Adequate (ADEQUATE) Sodium Level 130 mmol/L (136-145) Potassium Level 3.9 mmol/L (3.5-5.1) Chloride Level 93 mmol/L (98-107) Carbon Dioxide Level 26 mmol/L (21-32) Anion Gap 11 (6-14) Blood Urea Nitrogen 9 mg/dL (7-20) Creatinine 0.8 mg/dL (0.6-1.0) Estimated GFR (Cockcroft-Gault) 69.6 BUN/Creatinine Ratio 11 (6-20) Glucose Level 199 mg/dL (70-99) Lactic Acid Level 1.3 mmol/L (0.4-2.0) 1.1 mmol/L (0.4-2.0) Calcium Level 9.2 mg/dL (8.5-10.1) Total Bilirubin 0.6 mg/dL (0.2-1.0) Aspartate Amino Transf (AST/SGOT) 470 U/L (15-37) Alanine Aminotransferase (ALT/SGPT) 340 U/L (14-59) Alkaline Phosphatase 182 U/L (46-116) Troponin I Quantitative < 0.017 ng/mL (0.000-0.055) Total Protein 6.8 g/dL (6.4-8.2) Albumin 3.8 g/dL (3.4-5.0) Albumin/Globulin Ratio 1.3 (1.0-1.7) Lipase 167 U/L (73-393) Urine Collection Type Unknown Urine Color Yellow Urine Clarity Cloudy Urine pH 7.5 Urine Specific [place] 1.015 Urine Protein Negative mg/dL (NEG-TRACE) Urine Glucose (UA) Negative mg/dL (NEG) Urine Ketones (Stick) Negative mg/dL (NEG) Urine Blood Small (NEG) Urine Nitrite Negative (NEG) Urine Bilirubin Negative (NEG) Urine Urobilinogen Dipstick 0.2 mg/dL (0.2 mg/dL) Urine Leukocyte Esterase Small (NEG) Urine RBC 1-2 /HPF (0-2) Urine WBC 1-4 /HPF (0-4) Urine Squamous Epithelial Cells Few /LPF Urine Bacteria Many /HPF (0-FEW) Glucose (Fingerstick) 175 mg/dL (70-99) Test 09/24/16 03:00 09/24/16 03:05 09/24/16 07:13 09/24/16 12:22 Total Bilirubin 0.5 mg/dL (0.2-1.0) Direct Bilirubin 0.2 mg/dL (0.0-0.2) Aspartate Amino Transf (AST/SGOT) 245 U/L (15-37) Alanine Aminotransferase (ALT/SGPT) 264 U/L (14-59) Alkaline Phosphatase 153 U/L (46-116) Total Protein 5.9 g/dL (6.4-8.2) Albumin 3.3 g/dL (3.4-5.0) White Blood Count 3.7 x10^3/uL (4.0-11.0) Red Blood Count 3.55 x10^6/uL (3.50-5.40) Hemoglobin 9.5 g/dL (12.0-15.5) Hematocrit 28.4 % (36.0-47.0) Mean Corpuscular Volume 80 fL (79-100) Mean Corpuscular Hemoglobin 27 pg (25-35) Mean Corpuscular Hemoglobin Concent 33 g/dL (31-37) Red Cell Distribution Width 16.0 % (11.5-14.5) Platelet Count 243 x10^3/uL (140-400) Neutrophils (%) (Auto) 70 % (31-73) Lymphocytes (%) (Auto) 17 % (24-48) Monocytes (%) (Auto) 11 % (0-9) Eosinophils (%) (Auto) 1 % (0-3) Basophils (%) (Auto) 1 % (0-3) Neutrophils # (Auto) 2.6 x10^3uL (1.8-7.7) Lymphocytes # (Auto) 0.6 x10^3/uL (1.0-4.8) Monocytes # (Auto) 0.4 x10^3/uL (0.0-1.1) Eosinophils # (Auto) 0.0 x10^3/uL (0.0-0.7) Basophils # (Auto) 0.0 x10^3/uL (0.0-0.2) Sodium Level 133 mmol/L (136-145) Potassium Level 3.6 mmol/L (3.5-5.1) Chloride Level 99 mmol/L (98-107) Carbon Dioxide Level 25 mmol/L (21-32) Anion Gap 9 (6-14) Blood Urea Nitrogen 6 mg/dL (7-20) Creatinine 0.8 mg/dL (0.6-1.0) Estimated GFR (Cockcroft-Gault) 69.6 Glucose Level 89 mg/dL (70-99) Calcium Level 8.2 mg/dL (8.5-10.1) Iron Level 23 ug/dL (50-170) Total Iron Binding Capacity 305 ug/dL (250-450) Iron Saturation 8 % (15-34) Gamma Glutamyl Transpeptidase 232 U/L (5-55) Procalcitonin 0.24 ng/mL (0.00-0.10) Thyroid Stimulating Hormone (TSH) 0.772 uIU/mL (0.358-3.74) Hepatitis A IgM Antibody Negative (Negative) Hepatitis B Surface Antigen Negative (Negative) Hepatitis B Core IgM Antibody Negative (Negative) Hepatitis C Antibody <0.1 s/co ratio Glucose (Fingerstick) 103 mg/dL (70-99) 118 mg/dL (70-99) Test 09/24/16 16:31 09/24/16 20:28 09/25/16 07:14 09/25/16 10:30 Glucose (Fingerstick) 164 mg/dL (70-99) 184 mg/dL (70-99) 86 mg/dL (70-99) White Blood Count 3.4 x10^3/uL (4.0-11.0) Red Blood Count 3.80 x10^6/uL (3.50-5.40) Hemoglobin 10.0 g/dL (12.0-15.5) Hematocrit 30.4 % (36.0-47.0) Mean Corpuscular Volume 80 fL (79-100) Mean Corpuscular Hemoglobin 26 pg (25-35) Mean Corpuscular Hemoglobin Concent 33 g/dL (31-37) Red Cell Distribution Width 16.6 % (11.5-14.5) Platelet Count 270 x10^3/uL (140-400) Neutrophils (%) (Auto) 63 % (31-73) Lymphocytes (%) (Auto) 20 % (24-48) Monocytes (%) (Auto) 12 % (0-9) Eosinophils (%) (Auto) 5 % (0-3) Basophils (%) (Auto) 1 % (0-3) Neutrophils # (Auto) 2.2 x10^3uL (1.8-7.7) Lymphocytes # (Auto) 0.7 x10^3/uL (1.0-4.8) Monocytes # (Auto) 0.4 x10^3/uL (0.0-1.1) Eosinophils # (Auto) 0.2 x10^3/uL (0.0-0.7) Basophils # (Auto) 0.0 x10^3/uL (0.0-0.2) Sodium Level 135 mmol/L (136-145) Potassium Level 3.9 mmol/L (3.5-5.1) Chloride Level 101 mmol/L (98-107) Carbon Dioxide Level 25 mmol/L (21-32) Anion Gap 9 (6-14) Blood Urea Nitrogen 4 mg/dL (7-20) Creatinine 0.7 mg/dL (0.6-1.0) Estimated GFR (Cockcroft-Gault) 81.1 BUN/Creatinine Ratio 6 (6-20) Glucose Level 183 mg/dL (70-99) Calcium Level 8.4 mg/dL (8.5-10.1) Total Bilirubin 0.8 mg/dL (0.2-1.0) Aspartate Amino Transf (AST/SGOT) 224 U/L (15-37) Alanine Aminotransferase (ALT/SGPT) 282 U/L (14-59) Alkaline Phosphatase 226 U/L (46-116) Total Protein 6.7 g/dL (6.4-8.2) Albumin 3.3 g/dL (3.4-5.0) Albumin/Globulin Ratio 1.0 (1.0-1.7) Laboratory Tests Test 09/24/16 12:22 09/24/16 16:31 09/24/16 20:28 09/25/16 07:14 Glucose (Fingerstick) 118 mg/dL (70-99) 164 mg/dL (70-99) 184 mg/dL (70-99) 86 mg/dL (70-99) Test 09/25/16 10:30 White Blood Count 3.4 x10^3/uL (4.0-11.0) Red Blood Count 3.80 x10^6/uL (3.50-5.40) Hemoglobin 10.0 g/dL (12.0-15.5) Hematocrit 30.4 % (36.0-47.0) Mean Corpuscular Volume 80 fL (79-100) Mean Corpuscular Hemoglobin 26 pg (25-35) Mean Corpuscular Hemoglobin Concent 33 g/dL (31-37) Red Cell Distribution Width 16.6 % (11.5-14.5) Platelet Count 270 x10^3/uL (140-400) Neutrophils (%) (Auto) 63 % (31-73) Lymphocytes (%) (Auto) 20 % (24-48) Monocytes (%) (Auto) 12 % (0-9) Eosinophils (%) (Auto) 5 % (0-3) Basophils (%) (Auto) 1 % (0-3) Neutrophils # (Auto) 2.2 x10^3uL (1.8-7.7) Lymphocytes # (Auto) 0.7 x10^3/uL (1.0-4.8) Monocytes # (Auto) 0.4 x10^3/uL (0.0-1.1) Eosinophils # (Auto) 0.2 x10^3/uL (0.0-0.7) Basophils # (Auto) 0.0 x10^3/uL (0.0-0.2) Sodium Level 135 mmol/L (136-145) Potassium Level 3.9 mmol/L (3.5-5.1) Chloride Level 101 mmol/L (98-107) Carbon Dioxide Level 25 mmol/L (21-32) Anion Gap 9 (6-14) Blood Urea Nitrogen 4 mg/dL (7-20) Creatinine 0.7 mg/dL (0.6-1.0) Estimated GFR (Cockcroft-Gault) 81.1 BUN/Creatinine Ratio 6 (6-20) Glucose Level 183 mg/dL (70-99) Calcium Level 8.4 mg/dL (8.5-10.1) Total Bilirubin 0.8 mg/dL (0.2-1.0) Aspartate Amino Transf (AST/SGOT) 224 U/L (15-37) Alanine Aminotransferase (ALT/SGPT) 282 U/L (14-59) Alkaline Phosphatase 226 U/L (46-116) Total Protein 6.7 g/dL (6.4-8.2) Albumin 3.3 g/dL (3.4-5.0) Albumin/Globulin Ratio 1.0 (1.0-1.7) Brief Hospital Course Ms. Redding is a 75 old pleasant female initially admitted for n/v, abd pain, mild - work up neg, except for UTI, GNR uti on cx, ID on board, BC neg, was getting rocephin now being dcd on PO cephalexin x 7 days, All the gI sxs has resolved. VEry healthy and active for age, at bedside, Safe for home today COnsultsL GI and ID Proc none tme 31 mins > 50% counseling Discharge Information Condition at Discharge: Improved, Stable Follow Up: Weeks (PCP) Disposition/Orders: D/C to Home Scheduled Alendronate Sodium (Alendronate Sodium), 70 MG PO WEEKLY, (Reported) Atorvastatin Calcium (Atorvastatin Calcium), 40 MG PO QPM, (Reported) Exenatide Microspheres (Bydureon), 2 MG SQ WEEKLY, (Reported) Gabapentin (Gabapentin), 100 MG PO QHS, (Reported) Insulin Glargine,Hum.rec.anlog (Lantus Solostar), 15 UNITS SQ QHS, (Reported) Losartan Potassium (Losartan Potassium), 100 MG PO HS, (Reported) Metformin Hcl (Metformin Hcl), 1,000 MG PO BID, (Reported) Scheduled PRN Hydrocodone Bit/Acetaminophen (Hydrocodone-Apap 5-325 ), 1 TAB PO PRN Q4HRS PRN for MILD PAIN DARCY HILL MD Sep 25, 2016 11:36
--- NOTE | 2016-09-25 11:49 | PDOC ---
Subjective: Subjective: Feeling better except a bit constipated. Tolerating PO, feels ready to go home. Concerned w/ recurrent UTIs. Objective: Vital Signs: Vital Signs Date Time Temp Pulse Resp B/P (MAP) Pulse Ox O2 Delivery O2 Flow Rate FiO2 09/25/16 11:00 97.6 86 18 143/71 (95) 96 Room Air 97.6 09/24/16 23:10 Labs: Laboratory Tests Test 09/24/16 12:22 09/24/16 16:31 09/24/16 20:28 09/25/16 07:14 Glucose (Fingerstick) 118 mg/dL (70-99) 164 mg/dL (70-99) 184 mg/dL (70-99) 86 mg/dL (70-99) Imaging: RUQ US 09/24/16 Impression: Status post cholecystectomy. Otherwise negative study. PE: GEN: NAD, up to chair LUNGS: CTAB HEART: RRR ABD: S/ND/NT NEURO/PSYCH: A & O 3 A/P: UTI/?sepsis -fever, confusion, n/v resolved Transaminitis -CT and US unrevealing -Hep panel neg -s/p cholecystectomy PREM, dark stools on iron -no previous EGD/colonoscopy -- Plan for outpt EGD and colonoscopy r/o GI source for anemia, recurrent infection w/ transaminitis. Our office will arrange. D/w pt, , RN, Dr. Oliver. MANOLO YI Sep 25, 2016 11:49
[2016-09-25] MEDS ORDERED: POLYETHYLENE GLYCOL 3350 17 GM PACKET. PO SCH (12:00)
== END 2016-09-25 14:00 | disposition home or self-care (01) | DRG 689 ==
LOC: ER 12:48 → 6 SOUTH 17:10
PROVIDERS: ADMIT Internal Medicine; ATTEND Internal Medicine
DX: N39.0 Urinary tract infection, site not specified (principal); G93.41 Metabolic encephalopathy; E87.1 Hypo-osmolality and hyponatremia; K59.00 Constipation, unspecified; N18.9 Chronic kidney disease, unspecified; I12.9 Hypertensive chronic kidney disease with stage 1 through stage 4 chronic kidney disease, or unspecified chronic kidney disease; E78.5 Hyperlipidemia, unspecified; D50.9 Iron deficiency anemia, unspecified; E78.00 Pure hypercholesterolemia, unspecified; E11.42 Type 2 diabetes mellitus with diabetic polyneuropathy; E11.22 Type 2 diabetes mellitus with diabetic chronic kidney disease; Z90.710 Acquired absence of both cervix and uterus; Z90.49 Acquired absence of other specified parts of digestive tract; Z98.49 Cataract extraction status, unspecified eye; Z79.4 Long term (current) use of insulin; Z79.899 Other long term (current) drug therapy; Z79.1 Long term (current) use of non-steroidal anti-inflammatories (NSAID); Z88.5 Allergy status to narcotic agent; Z88.8 Allergy status to other drugs, medicaments and biological substances
CPT/HCPCS: 36415; 71010; 74177; 76705; 80048; 80053; 80074; 80076; 81001; 82962; 82977; 83540; 83550; 83605; 83690; 84145; 84443; 84484; 85007; 85027; 87040; 87086; 93005; 96361; 96374; J0692; J1815; J2405; J3370; J7030; J7040; J7050; Q9967; 99285-25

== ENCOUNTER → 2016-10-03 | Day surgery (SDC) | payer MEDICARE, BC ==
[~2016-10-03] MED LIST changes: +CEPH500C PO; +FLUT100D IH; +IV RINGERS,LACTATED 1000ML 1,000 ML IV SCH; +LIDOCAINE 1% 1 ML SYRINGE. ID PRN; +MULT-208 PO; +ONDANSETRON PF 4 MG/2 ML VIAL. IV PRN; +PROCHLORPERAZINE 10 MG/2 ML VIAL. IV PRN; +PROPOFOL 40 ML IV ONE; +fentaNYL PF VIAL 100 MCG/2 ML VIAL IV PRN
[2016-10-03 09:30] VITALS: BP 145/62
== END | disposition home or self-care (01) ==
LOC: ENDOS 07:17
PROVIDERS: ATTEND Internal Medicine Gastroenterology
DX: K64.0 First degree hemorrhoids (principal); D50.9 Iron deficiency anemia, unspecified; K57.30 Diverticulosis of large intestine without perforation or abscess without bleeding; K29.50 Unspecified chronic gastritis without bleeding; E78.00 Pure hypercholesterolemia, unspecified; I10 Essential (primary) hypertension; E11.9 Type 2 diabetes mellitus without complications; Z98.41 Cataract extraction status, right eye; Z98.42 Cataract extraction status, left eye; Z90.49 Acquired absence of other specified parts of digestive tract; Z90.710 Acquired absence of both cervix and uterus; Z87.39 Personal history of other diseases of the musculoskeletal system and connective tissue; Z88.6 Allergy status to analgesic agent
CPT/HCPCS: 43235; 45378; J2704

== ENCOUNTER 2016-10-07 09:49 | Inpatient (IN) | payer MEDICARE, BC ==
[~2016-10-07] VITALS: Ht 162.6 cm; Wt 66.0 kg
[~2016-10-07 09:49] MED LIST changes: -IV RINGERS,LACTATED 1000ML 1,000 ML IV SCH; -LIDOCAINE 1% 1 ML SYRINGE. ID PRN; -ONDANSETRON PF 4 MG/2 ML VIAL. IV PRN; -PROCHLORPERAZINE 10 MG/2 ML VIAL. IV PRN; -PROPOFOL 40 ML IV ONE; -fentaNYL PF VIAL 100 MCG/2 ML VIAL IV PRN
--- NOTE | 2016-10-07 09:55 | PHYS DOC ---
Past Medical History Past Medical History: Diabetes-Type II, High Cholesterol, Hypertension Past Surgical History: , Hysterectomy Alcohol Use: None Drug Use: None Adult General Chief Complaint Chief Complaint: WEAKNESS/GENERALIZED HPI HPI Patient is a 75 year old female who presents with generalized weakness. She has a past medical history of diabetes type 2, dyslipidemia, hypertension, chronic kidney disease with iron deficiency anemia. She had a colonoscopy approximately 4 days ago. She states she's been taking iron pills for the last 2 days in her stools and becoming dark. She states since then she has been getting weaker and her is having to do more and more to help her even get up out of bed and walk. She got up this morning and have abdominal pain and vomited once it was nonbloody nonbilious. She denies any abdominal pain currently. She also fell coming back from the bathroom but denies any injury or hitting her head. Her states his same thing happened approximately 2 weeks ago and was hospitalized secondary to her weakness. Review of Systems Review of Systems Constitutional: Denies fever or chills [] Eyes: Denies change in visual acuity, redness, or eye pain [] HENT: Denies nasal congestion or sore throat [] Respiratory: Denies cough or shortness of breath [] Cardiovascular: No additional information not addressed in HPI [] GI: Denies abdominal pain, nausea, vomiting, bloody stools or diarrhea [] : Denies dysuria or hematuria [] Musculoskeletal: Denies back pain or joint pain [] Integument: Denies rash or skin lesions [] Neurologic: Denies headache, focal weakness or sensory changes [] Endocrine: Denies polyuria or polydipsia [] Current Medications Current Medications Allergies Allergies Allergies Coded Allergies Type Severity Reaction Last Updated Verified codeine Adverse Reaction Intermediate Nausea and Vomiting 10/03/16 Yes tramadol Adverse Reaction Intermediate Nausea and Vomiting 10/03/16 Yes Physical Exam Physical Exam Constitutional: Well developed, well nourished, no acute distress, non-toxic appearance. [] HENT: Normocephalic, atraumatic, bilateral external ears normal, oropharynx moist, no oral exudates, nose normal. [] Eyes: PERRLA, EOMI, conjunctiva normal, no discharge. [] Neck: Normal range of motion, no tenderness, supple, no stridor. [] Cardiovascular:Heart rate regular rhythm, no murmur [] Lungs & Thorax: Bilateral breath sounds clear to auscultation [] Abdomen: Bowel sounds normal, soft, no tenderness, no masses, no pulsatile masses. [] Skin: Warm, dry, no erythema, no rash. [] Back: No tenderness, no CVA tenderness. [] Extremities: No tenderness, no cyanosis, no clubbing, ROM intact, no edema. [] Neurologic: Alert and oriented X 3, normal motor function, normal sensory function, no focal deficits noted. [] Psychologic: Affect normal, judgement normal, mood normal. [] Current Patient Data Vital Signs Vital Signs Date Time Temp Pulse Resp B/P (MAP) Pulse Ox O2 Delivery O2 Flow Rate FiO2 10/07/16 09:50 98.3 84 16 173/79 (110) 97 Room Air 98.3 Lab Values Laboratory Tests Test 10/07/16 10:08 White Blood Count 8.4 x10^3/uL (4.0-11.0) Red Blood Count 4.34 x10^6/uL (3.50-5.40) Hemoglobin 11.5 g/dL (12.0-15.5) L Hematocrit 35.1 % (36.0-47.0) L Mean Corpuscular Volume 81 fL (79-100) Mean Corpuscular Hemoglobin 26 pg (25-35) Mean Corpuscular Hemoglobin Concent 33 g/dL (31-37) Red Cell Distribution Width 16.1 % (11.5-14.5) H Platelet Count 570 x10^3/uL (140-400) #H Neutrophils (%) (Auto) 70 % (31-73) Lymphocytes (%) (Auto) 18 % (24-48) L Monocytes (%) (Auto) 7 % (0-9) Eosinophils (%) (Auto) 3 % (0-3) Basophils (%) (Auto) 1 % (0-3) Neutrophils # (Auto) 5.9 x10^3uL (1.8-7.7) Lymphocytes # (Auto) 1.5 x10^3/uL (1.0-4.8) Monocytes # (Auto) 0.6 x10^3/uL (0.0-1.1) Eosinophils # (Auto) 0.3 x10^3/uL (0.0-0.7) Basophils # (Auto) 0.1 x10^3/uL (0.0-0.2) Prothrombin Time 13.0 SEC (11.7-14.0) Prothrombin Time INR 1.0 (0.8-1.1) Sodium Level 136 mmol/L (136-145) Potassium Level 4.7 mmol/L (3.5-5.1) Chloride Level 97 mmol/L (98-107) L Carbon Dioxide Level 29 mmol/L (21-32) Anion Gap 10 (6-14) Blood Urea Nitrogen 21 mg/dL (7-20) H Creatinine 1.4 mg/dL (0.6-1.0) H Estimated GFR (Cockcroft-Gault) 36.5 Glucose Level 143 mg/dL (70-99) H Calcium Level 13.2 mg/dL (8.5-10.1) *H Magnesium Level 1.6 mg/dL (1.8-2.4) L Total Bilirubin 0.9 mg/dL (0.2-1.0) Direct Bilirubin 0.2 mg/dL (0.0-0.2) Aspartate Amino Transferase (AST) 28 U/L (15-37) Alanine Aminotransferase (ALT) 53 U/L (14-59) Alkaline Phosphatase 222 U/L (46-116) H Creatine Kinase 20 U/L (26-192) L Creatine Kinase MB (Mass) < 0.5 ng/mL (0.0-3.6) Creatine Kinase MB Relative Index % (0-4) Troponin I Quantitative < 0.017 ng/mL (0.000-0.055) MX-Stc-A-Type Natriuretic Peptide 128 pg/mL (0-449) Total Protein 7.8 g/dL (6.4-8.2) Albumin 3.9 g/dL (3.4-5.0) Lipase 146 U/L (73-393) Thyroid Stimulating Hormone (TSH) 1.903 uIU/mL (0.358-3.74) Laboratory Tests 10/07/16 10:08 Laboratory Tests 10/07/16 10:08 EKG EKG EKG shows sinus rhythm rate of [address] elevations, T-wave inversions noted in leads aVL, left axis deviation noted, QTC 398 ms, as interpreted by me. Radiology/Procedures Radiology/Procedures [facility] [address] [place] [address] IMAGING REPORT Signed PATIENT: AMILCAR GONZALEZ I ACCOUNT: [id number] : 1940 LOCATION: ER AGE: 75 SEX: F EXAM STATUS: REG ER ORD. PHYSICIAN: SHELBI YOO MD REASON: weakness PROCEDURE: PORTABLE CHEST 1V Indication: Fatigue and weakness since discharged 12 days ago. Technique: Upright portable chest radiograph was obtained and compared to a study from September 23, 2016. Findings: The lungs are clear. The heart is not enlarged and there is no heart failure. There is mild atheromatous disease in the thoracic aorta. Bony structures are intact. Leads overlie the patient. Impression: No acute thoracic findings. DICTATED and SIGNED BY: AMBROCIO UPTON MD DATE: 10/07/16 1034 CC: SHELBI YOO MD; RAIZA VILLALTA MD ~ Impressions: Generalized weakness Hypercalcemia Acute renal failure Course & Med Decision Making Course & Med Decision Making Pertinent Labs and Imaging studies reviewed. (See chart for details) She is extremely weak we had to help her out of a wheelchair into bed. Her calcium comes back at 13.2. Her creatinines 1.4 up from 0.7 before. According to family she's had a partial parathyroidectomy in the past. She'll be admitted started on IV hydration with nephrology consultation. Interim orders have been written. Patient's in stable condition this time. Spoke with Dr. Guzmán who wanted a PTH added on to her labs in addition to 125 of normal saline per hour. Dragon Disclaimer Dragon Disclaimer This electronic medical record was generated, in whole or in part, using a voice recognition dictation system. Departure Departure Impression: Primary Impression: Hypercalcemia Disposition: ADMITTED INPATIENT Admitting Physician: Bárbara Bruce Condition: STABLE Referrals: RAIZA VILLALTA MD (PCP) SHELBI YOO MD Oct 07, 2016 09:55
--- NOTE | 2016-10-07 10:37 | RAD ---
Indication: Fatigue and weakness since discharged 12 days ago. Technique: Upright portable chest radiograph was obtained and compared to a study from September 23, 2016. Findings: The lungs are clear. The heart is not enlarged and there is no heart failure. There is mild atheromatous disease in the thoracic aorta. Bony structures are intact. Leads overlie the patient. Impression: No acute thoracic findings.
[2016-10-07 10:38] LABS: ALBUMIN 3.9 g/dL (3.4-5.0); CREATININE 1.4 mg/dL (0.6-1.0); DIRECT BILIRUBIN 0.2 mg/dL (0.0-0.2); GFR 36.5; MAGNESIUM 1.6 mg/dL (1.8-2.4); POTASSIUM 4.7 mmol/L (3.5-5.1); TOTAL BILIRUBIN 0.9 mg/dL (0.2-1.0); TOTAL PROTEIN 7.8 g/dL (6.4-8.2)
[2016-10-07 10:40] LABS: CALCIUM 13.2 mg/dL (8.5-10.1)
[2016-10-07 10:45] LABS: CKMB MASS < 0.5 ng/mL (0.0-3.6); CREATINE KINASE 20 U/L (26-192)
[2016-10-07 10:54] LABS: BASO # 0.1 x10^3/uL (0.0-0.2); BASO % 1 % (0-3); EOS % 3 % (0-3); HEMATOCRIT 35.1 % (36.0-47.0); HEMOGLOBIN 11.5 g/dL (12.0-15.5); LYMPH # 1.5 x10^3/uL (1.0-4.8); LYMPH % 18 % (24-48); MEAN CORPUSCULAR HEMOGLOBIN 26 pg (25-35); MEAN CORPUSCULAR HGB CONC 33 g/dL (31-37); MEAN CORPUSCULAR VOLUME 81 fL (79-100); MONO % 7 % (0-9); NEUT % 70 % (31-73); PLATELET COUNT 570 x10^3/uL (140-400); RED BLOOD COUNT 4.34 x10^6/uL (3.50-5.40); RED CELL DISTRIBUTION WIDTH 16.1 % (11.5-14.5); WHITE BLOOD COUNT 8.4 x10^3/uL (4.0-11.0)
--- NOTE | 2016-10-07 10:56 | EKG ---
[facility] [address] [place] [address] Test Date: 2016-10-07 Test Time: 10:50:18 Pat Name: AMILCAR GONZALEZ Department: Room: Gender: F [employer]: : 1940 Requested By: SHELBI YOO Order Number: [id number] Reading MD: Margarita Barreto Measurements Intervals [place] Rate: 80 P: 46 [place]: 170 QRS: -26 QRSD: 70 T: 52 QT: 342 QTc: 398 Interpretive Statements SINUS RHYTHM LEFTWARD AXIS OTHERWISE NORMAL EKG Electronically Signed On 10-07-2016 20:18:17 CDT by Margarita Barreto
[2016-10-07] MEDS ORDERED: ONDANSETRON PF 4 MG/2 ML VIAL. IV PRN ×2 (11:30→16:30)
[2016-10-07] MEDS ORDERED: IV NORMAL SALINE 1000ML BAG 1,000 ML IV ONE (11:30)
[2016-10-07 11:40] LABS: NEG OBC FOB NEG; POS OBC FOB POS
[2016-10-07] MEDS ORDERED: IV 1/2 NORMAL SALINE 1,000 ML IV ONE (12:15)
[2016-10-07 13:22] LABS: BILIRUBIN,URINE NEGATIVE (NEG); GLUCOSE,URINE NEGATIVE (NEG); NITRITE,URINE NEGATIVE (NEG); PROTEIN,URINE NEGATIVE (NEG-TRACE); UROBILINOGEN,URINE 0.2 mg/dL (0.2 mg/dL)
[2016-10-07 14:03] LABS: BACTERIA,URINE 0 /HPF (0-FEW); SQUAMOUS EPITHELIAL CELL,UR FEW /LPF
[2016-10-07 14:28] VITALS: BP 181/93
[2016-10-07] MEDS ORDERED: HYDROcodone/APAP 5/325MG 1 TAB TABLET PO PRN (16:15)
[2016-10-07] MEDS ORDERED: DEXTROSE 50% 25 GM / 50ML DISP.SYRIN. IV PRN (16:15)
--- NOTE | 2016-10-07 16:16 | PDOC1 ---
History and Physical Date of Admission Date of Admission DATE: 10/07/16 TIME: 16:10 Identification/Chief Complaint Chief Complaint weakness Problems: Source Source: Chart review, Patient History of Present Illness History of Present Illness Ms. Redding, is a 75 year old female admit for severe, generalized weakness. Recent colonoscopy 4 days ago, iron def. has been taking iron pills, but severe weakness, sort of started before prep even. SHe has history of hyper PTH, s/p partial parathyroidectomy, 2 years ago here , she cannot remember who. PCP Dr. Morfin, she has no pain, no fever or chills, just severe weakness and she fell about 2 weeks ago, no injury, but her reports that she had previously been "able to do the work of 5 men" Past Medical History Cardiovascular: HTN, Hyperlipidemia, Other Pulmonary: No pertinent hx GI: No pertinent hx Hepatobiliary: No pertinent hx Psych: No pertinent hx Rheumatologic: No pertinent hx Infectious disease: No pertinent hx Endocrine: Diabetes, Hyperparathyroidism, Osteoporosis Past Surgical History Past Surgical History: Other (parathyroid) Family History Family History: Diabetes, Hypertension, Other Social History Smoke: No ALCOHOL: none Drugs: None Current Medications Current Medications Current Medications Sodium Chloride 1,000 ml @ 1,000 mls/hr 1X ONCE IV Last administered on t 11:12; Start 10/07/16 at 11:30; Stop 10/07/16 at 12:29; Status DC Ondansetron HCl (Zofran) 4 mg PRN Q8HRS PRN IV NAUSEA/VOMITING; Start 10/07/16 at 11:30; Stop 10/08/16 at 11:29 Sodium Chloride 1,000 ml @ 125 mls/hr 1X ONCE IV ; Start 10/07/16 at 12:15; Stop 10/07/16 at 20:14 Sodium Chloride 1,000 ml @ 100 mls/hr Q10H IV ; Start 10/07/16 at 15:30 Active Scripts Active Hydrocodone-Apap 5-325 (Hydrocodone Bit/Acetaminophen) 1 Each Tablet 1 Tab PO PRN Q4HRS PRN Reported Cephalexin 500 Mg Capsule 1 Cap PO DAILY Flovent 100MCG Diskus (Fluticasone Propionate) 100 Mcg Disk.w.dev 1 Puff IH BID Multi-Day Vitamins (Multivitamin) 1 Each Tablet 1 Tab PO DAILY Bydureon (Exenatide Microspheres) 2 Mg Vial 2 Mg SQ WEEKLY Losartan Potassium 100 Mg Tablet 100 Mg PO HS Gabapentin 100 Mg Capsule 100 Mg PO QHS Metformin Hcl 1,000 Mg Tablet 1,000 Mg PO BID Alendronate Sodium 70 Mg Tablet 70 Mg PO WEEKLY PATIENT TAKES ON SATURDAY Atorvastatin Calcium 40 Mg Tablet 40 Mg PO QPM Lantus Solostar (Insulin Glargine,Hum.rec.anlog) 100 Unit/1 Ml Insuln.pen 15 Units SQ QHS Allergies Allergies: Coded Allergies: codeine (Verified Adverse Reaction, Intermediate, Nausea and Vomiting, ) tramadol (Verified Adverse Reaction, Intermediate, Nausea and Vomiting, ) ROS General: YES: Fatigue, Malaise, No: Chills, Night Sweats, Appetite, Other PSYCHOLOGICAL ROS: No: Anxiety, Behavioral Disorder, Concentration difficultie , Decreased libido, Depression, Disorientation, Hallucinations, Hostility, Irritablity, Memory difficulties, Mood Swings, Obsessive thoughts, Physical abuse, Sexual abuse, Sleep disturbances, Suicidal ideation, Other Eyes: No Blurry vision, No Decreased vision, No Double vision, No Dry eyes, No Excessive tearing, No Eye Pain, No Itchy Eyes, No Loss of vision, No Photophobia , No Scotomata, No Uses contacts, No Uses glasses, No Other Respiratory: No: Cough, Hemoptysis, Orthopnea, Pleuritic Pain, Shortness of breath, SOB with excertion, Sputum Changes, Stridor, Tachypnea, Wheezing, Other Cardiovascular: No Chest Pain, No Palpitations, No Orthopnea, No Paroxysmal Noc. Dyspnea, No Edema, No Lt Headedness, No Other Gastrointestinal: No Nausea, No Vomiting, No Abdominal Pain, No Diarrhea, No Constipation, No Melena, No Hematochezia, No Other Genitourinary: No Dysuria, No Frequency, No Incontinence, No Hematuria, No Retention, No Discharge, No Urgency, No Pain, No Flank Pain, No Other, No , No , No , No , No , No , No Musculoskeletal: Yes Muscular Weakness, No Gait Disturbance, No Joint Pain, No Joint Stiffness, No Joint Swelling, No Muscle Pain, No Pain In:, No Swelling In:, No Other Neurological: No Behavorial Changes, No Bowel/Bladder ControlChng, No Confusion , No Dizziness, No Gait Disturbance, No Headaches, No Impaired Coord/balance, No Memory Loss, No Numbness/Tingling, No Seizures, No Speech Problems, No Tremors, No Visual Changes, No Weakness, No Other Skin: No Dry Skin, No Eczema, No Hair Changes, No Lumps, No Mole Changes, No Mottling, No Nail Changes, No Pruritus, No Rash, No Skin Lesion Changes, No Other, No Acne Physical Exam General: Alert, Oriented X3, No acute distress HEENT: EOMI, Mucous membr. moist/pink Lungs: Clear to auscultation, Normal air movement Heart: no gallops, no murmurs Abdomen: Normal bowel sounds, Soft Rectal Exam: not examined Extremities: No clubbing, Other (very weak) Skin: No significant lesion Neuro: Normal speech, Sensation intact, Other (str nearly 5.5, but too weak to get up) Psych/Mental Status: Mood NL Vitals Vitals Vital Signs Date Time Temp Pulse Resp B/P (MAP) Pulse Ox O2 Delivery O2 Flow Rate FiO2 10/07/16 14:28 97.8 84 18 181/93 (122) 97 Room Air 97.8 Labs Labs Laboratory Tests Test 10/07/16 10:08 10/07/16 11:15 10/07/16 12:56 10/07/16 12:59 White Blood Count 8.4 x10^3/uL (4.0-11.0) Red Blood Count 4.34 x10^6/uL (3.50-5.40) Hemoglobin 11.5 g/dL (12.0-15.5) Hematocrit 35.1 % (36.0-47.0) Mean Corpuscular Volume 81 fL (79-100) Mean Corpuscular Hemoglobin 26 pg (25-35) Mean Corpuscular Hemoglobin Concent 33 g/dL (31-37) Red Cell Distribution Width 16.1 % (11.5-14.5) Platelet Count 570 x10^3/uL (140-400) Neutrophils (%) (Auto) 70 % (31-73) Lymphocytes (%) (Auto) 18 % (24-48) Monocytes (%) (Auto) 7 % (0-9) Eosinophils (%) (Auto) 3 % (0-3) Basophils (%) (Auto) 1 % (0-3) Neutrophils # (Auto) 5.9 x10^3uL (1.8-7.7) Lymphocytes # (Auto) 1.5 x10^3/uL (1.0-4.8) Monocytes # (Auto) 0.6 x10^3/uL (0.0-1.1) Eosinophils # (Auto) 0.3 x10^3/uL (0.0-0.7) Basophils # (Auto) 0.1 x10^3/uL (0.0-0.2) Prothrombin Time 13.0 SEC (11.7-14.0) Prothromb Time International Ratio 1.0 (0.8-1.1) Sodium Level 136 mmol/L (136-145) Potassium Level 4.7 mmol/L (3.5-5.1) Chloride Level 97 mmol/L (98-107) Carbon Dioxide Level 29 mmol/L (21-32) Anion Gap 10 (6-14) Blood Urea Nitrogen 21 mg/dL (7-20) Creatinine 1.4 mg/dL (0.6-1.0) Estimated GFR (Cockcroft-Gault) 36.5 Glucose Level 143 mg/dL (70-99) Calcium Level 13.2 mg/dL (8.5-10.1) Magnesium Level 1.6 mg/dL (1.8-2.4) Total Bilirubin 0.9 mg/dL (0.2-1.0) Direct Bilirubin 0.2 mg/dL (0.0-0.2) Aspartate Amino Transf (AST/SGOT) 28 U/L (15-37) Alanine Aminotransferase (ALT/SGPT) 53 U/L (14-59) Alkaline Phosphatase 222 U/L (46-116) Creatine Kinase 20 U/L (26-192) Creatine Kinase MB (Mass) < 0.5 ng/mL (0.0-3.6) Creatine Kinase MB Relative Index % (0-4) Troponin I Quantitative < 0.017 ng/mL (0.000-0.055) QR-Hpz-K-Type Natriuretic Peptide 128 pg/mL (0-449) Total Protein 7.8 g/dL (6.4-8.2) Albumin 3.9 g/dL (3.4-5.0) Lipase 146 U/L (73-393) Thyroid Stimulating Hormone (TSH) 1.903 uIU/mL (0.358-3.74) Stool Occult Blood Negative (NEG) Urine Collection Type Unknown Urine Color Yellow Urine Clarity Clear Urine pH 7.0 Urine Specific [place] <=1.005 Urine Protein Negative mg/dL (NEG-TRACE) Urine Glucose (UA) Negative mg/dL (NEG) Urine Ketones (Stick) Negative mg/dL (NEG) Urine Blood Negative (NEG) Urine Nitrite Negative (NEG) Urine Bilirubin Negative (NEG) Urine Urobilinogen Dipstick 0.2 mg/dL (0.2 mg/dL) Urine Leukocyte Esterase Negative (NEG) Urine RBC 1-2 /HPF (0-2) Urine WBC 5-10 /HPF (0-4) Urine Squamous Epithelial Cells Few /LPF Urine Bacteria 0 /HPF (0-FEW) Glucose (Fingerstick) 108 mg/dL (70-99) Laboratory Tests Test 10/07/16 10:08 10/07/16 11:15 10/07/16 12:56 10/07/16 12:59 White Blood Count 8.4 x10^3/uL (4.0-11.0) Red Blood Count 4.34 x10^6/uL (3.50-5.40) Hemoglobin 11.5 g/dL (12.0-15.5) Hematocrit 35.1 % (36.0-47.0) Mean Corpuscular Volume 81 fL (79-100) Mean Corpuscular Hemoglobin 26 pg (25-35) Mean Corpuscular Hemoglobin Concent 33 g/dL (31-37) Red Cell Distribution Width 16.1 % (11.5-14.5) Platelet Count 570 x10^3/uL (140-400) Neutrophils (%) (Auto) 70 % (31-73) Lymphocytes (%) (Auto) 18 % (24-48) Monocytes (%) (Auto) 7 % (0-9) Eosinophils (%) (Auto) 3 % (0-3) Basophils (%) (Auto) 1 % (0-3) Neutrophils # (Auto) 5.9 x10^3uL (1.8-7.7) Lymphocytes # (Auto) 1.5 x10^3/uL (1.0-4.8) Monocytes # (Auto) 0.6 x10^3/uL (0.0-1.1) Eosinophils # (Auto) 0.3 x10^3/uL (0.0-0.7) Basophils # (Auto) 0.1 x10^3/uL (0.0-0.2) Prothrombin Time 13.0 SEC (11.7-14.0) Prothromb Time International Ratio 1.0 (0.8-1.1) Sodium Level 136 mmol/L (136-145) Potassium Level 4.7 mmol/L (3.5-5.1) Chloride Level 97 mmol/L (98-107) Carbon Dioxide Level 29 mmol/L (21-32) Anion Gap 10 (6-14) Blood Urea Nitrogen 21 mg/dL (7-20) Creatinine 1.4 mg/dL (0.6-1.0) Estimated GFR (Cockcroft-Gault) 36.5 Glucose Level 143 mg/dL (70-99) Calcium Level 13.2 mg/dL (8.5-10.1) Magnesium Level 1.6 mg/dL (1.8-2.4) Total Bilirubin 0.9 mg/dL (0.2-1.0) Direct Bilirubin 0.2 mg/dL (0.0-0.2) Aspartate Amino Transf (AST/SGOT) 28 U/L (15-37) Alanine Aminotransferase (ALT/SGPT) 53 U/L (14-59) Alkaline Phosphatase 222 U/L (46-116) Creatine Kinase 20 U/L (26-192) Creatine Kinase MB (Mass) < 0.5 ng/mL (0.0-3.6) Creatine Kinase MB Relative Index % (0-4) Troponin I Quantitative < 0.017 ng/mL (0.000-0.055) GX-Mtg-U-Type Natriuretic Peptide 128 pg/mL (0-449) Total Protein 7.8 g/dL (6.4-8.2) Albumin 3.9 g/dL (3.4-5.0) Lipase 146 U/L (73-393) Thyroid Stimulating Hormone (TSH) 1.903 uIU/mL (0.358-3.74) Stool Occult Blood Negative (NEG) Urine Collection Type Unknown Urine Color Yellow Urine Clarity Clear Urine pH 7.0 Urine Specific [place] <=1.005 Urine Protein Negative mg/dL (NEG-TRACE) Urine Glucose (UA) Negative mg/dL (NEG) Urine Ketones (Stick) Negative mg/dL (NEG) Urine Blood Negative (NEG) Urine Nitrite Negative (NEG) Urine Bilirubin Negative (NEG) Urine Urobilinogen Dipstick 0.2 mg/dL (0.2 mg/dL) Urine Leukocyte Esterase Negative (NEG) Urine RBC 1-2 /HPF (0-2) Urine WBC 5-10 /HPF (0-4) Urine Squamous Epithelial Cells Few /LPF Urine Bacteria 0 /HPF (0-FEW) Glucose (Fingerstick) 108 mg/dL (70-99) VTE Prophylaxis Ordered VTE Prophylaxis Devices: No VTE Pharmacological Prophylaxi: Yes Assessment/Plan Assessment/Plan weakness, acquired, sudden hypercalcemia, history of prior hyperparathyroidism, check PTH, dehydration, acute renal failure, vasomotor, hydrate aggressively, recent colonoscopy prep possible factor Dm2, htn SMITA BARKSDALE MD Oct 07, 2016 16:16
[2016-10-07] MEDS: INSULIN ASPART 300 UNITS/3 ML INSULN.PEN SQ SCH (16:53)
[2016-10-07] MEDS: IV NORMAL SALINE 1000ML BAG 1,000 ML IV SCH (16:57)
[2016-10-07 19:00] VITALS: BP 155/73
[2016-10-07] MEDS ORDERED: INSULIN DETEMIR 300 UNITS/3 ML INSULN.PEN. SQ SCH (21:00)
[2016-10-07] MEDS: LOSARTAN POTASSIUM 50 MG TABLET. PO SCH (21:15)
[2016-10-07] MEDS: ATORVASTATIN CALCIUM 40 MG TABLET. PO SCH (21:15)
[2016-10-07] MEDS: GABAPENTIN 100 MG CAPSULE. PO SCH (21:15)
[2016-10-07] MEDS: ENOXAPARIN 40 MG/0.4 ML SYRINGE. SQ SCH (21:19)
[2016-10-07 22:52] VITALS: BP 167/79
[2016-10-08] VITALS (7 sets, daily range): BP systolic 152–175; BP diastolic 64–84
[2016-10-08] MEDS: IV NORMAL SALINE 1000ML BAG 1,000 ML IV SCH ×2 (03:35→12:30)
--- NOTE | 2016-10-08 04:12 | ACF ---
Admission Forms Criteria HYPONATREMIA; HYPERNATREMIA; HYPOKALEMIA; HYPERKALEMIA; HYPOCALCEMIA; HYPERCALCEMIA Clinical Indications for Inpatient Care (Place 'X' for any and all applicable criteria): Ongoing inpatient care may be indicated for ANY ONE of the following [G](1)(2)(3 )(5): [ ]I. Hyponatremia with ANY ONE of the following: [ ]a) Sodium less than 130 mEq/L (mmol/L) (new) (6)(22) [ ]b) Sodium less than 135 mEq/L (mmol/L) with ANY ONE of the following: [ ]i) Severe medical etiology requiring inpatient management (eg, heart failure, hypovolemia) [ ]ii) Altered mental status [ ]iii) Seizures [ ]II. Hypernatremia with ANY ONE of the following: [ ]a) Sodium greater than 155 mEq/L (mmol/L) [ ]b) Sodium greater than 150 mEq/L (mmol/L) with ANY ONE of the following: [ ] i) Altered mental status [ ]ii) Seizures [ ]iii) Severe medical etiology (eg, hypovolemia, diabetes insipidus) [ ]iv) Severe weakness [ ]v) Severe medical etiology (eg, hemolysis, infection, drug overdose) [ ]III. Hypokalemia with ANY ONE of the following: [ ]a) Potassium less than 2.5 mEq/L (mmol/L) despite outpatient and emergency treatment [ ]b) Potassium less than 3.0 mEq/L (mmol/L) with ANY ONE of the following: [ ]i) Weakness [ ]ii) Cardiac abnormality (eg, arrhythmia, conduction disturbance) [ ]iii) Cardiac ischemia [ ]iv) Ileus [ ]v) Ongoing medical cause requiring inpatient management. ( e.g., acute renal wasting, SIADH) [ ]vi) Other severe symptoms [ ] IV. Hyperkalemia with ANY ONE of the following: [ ]a) Potassium greater than 6.5 mEq/L (mmol/L) [ ]b) Potassium greater than 5 mEq/L (mmol/L) with ANY ONE of the following: [ ]i) Severe ECG findings [H] [ ]ii) Acute worsening of renal failure (creatinine greater than 2.5 mg/dL (221 micromoles/L) or significant elevation for age and size) [ ] V. Hypocalcemia with ANY ONE of the following: [ ]a) Calcium less than 7 mg/dL (1.75 mmol/L) despite outpatient and emergency treatment(19) [ ]b) Calcium less than 8 mg/dL (2 mmol/L) with significant symptoms or findings; examples include: [ ]i) Cardiac abnormality (eg, arrhythmia or conduction disturbance) [ ]ii) Altered mental status [ ]iii) Seizures [ ]iv) Breathing difficulty [ ]v) Muscle spasms [X ]. Hypercalcemia with ANY ONE of the following: [ ]a) Calcium greater than 14 mg/dL (3.5 mmol/L) [X ]b) Calcium greater than 12 mg/dL (3 mmol/L) with ANY ONE of the following: [ X]i) Significant dehydration or hypovolemia as indicated by ANY ONE of the following(2): [ X]1. Clinically significant dehydration as indicated by ANY ONE of the following: [ ]A. Acute loss of weight from baseline (5% of body weight in adults, 9% in pediatric patients) [ ]B. Hemodynamic instability [X ]C. Acute renal failure [ ]D. Serum sodium greater than 150 mEq/L (mmol/L) [ ]2) Dehydration that is persistent indicated by ALL of the following: [ ]A. Oral rehydration therapy not tolerated or insufficient to adequately correct dehydration [ ]B. Appropriate intravenous treatment (eg, fluids ) does not readily correct dehydration ie, after 12 to 24 hours of treatment) [ ]ii) Significant symptoms or findings; examples include: [ ]1) Altered mental status [ ]2) Cardiac abnormality (eg, arrhythmia, conduction disturbance) [ ]3) Cardiac abnormality (eg, arrhythmia, conduction disturbance) The original [employer] content created by [employer] has been revised. The portions of the content which have been revised are identified through the use of italic text or in bold, and [employer] [employer] [facility] [employer] has neither reviewed nor approved the modified material. All other unmodified content is copyright [employer] [email or web address] Please see references footnoted in the original [employer] [facility] [employer] edition 2016 HECTOR NOLAND Oct 08, 2016 04:12
[2016-10-08 06:33] LABS: BASO # 0.1 x10^3/uL (0.0-0.2); BASO % 2 % (0-3); EOS % 2 % (0-3); HEMATOCRIT 28.9 % (36.0-47.0); HEMOGLOBIN 9.8 g/dL (12.0-15.5); LYMPH # 1.5 x10^3/uL (1.0-4.8); LYMPH % 21 % (24-48); MEAN CORPUSCULAR HEMOGLOBIN 27 pg (25-35); MEAN CORPUSCULAR HGB CONC 34 g/dL (31-37); MEAN CORPUSCULAR VOLUME 79 fL (79-100); MONO % 8 % (0-9); NEUT % 68 % (31-73); PLATELET COUNT 481 x10^3/uL (140-400); RED BLOOD COUNT 3.66 x10^6/uL (3.50-5.40); RED CELL DISTRIBUTION WIDTH 16.5 % (11.5-14.5); WHITE BLOOD COUNT 7.5 x10^3/uL (4.0-11.0)
[2016-10-08 06:50] LABS: CALCIUM 10.8 mg/dL (8.5-10.1); CREATININE 1.2 mg/dL (0.6-1.0); GFR 43.6; POTASSIUM 3.8 mmol/L (3.5-5.1)
[2016-10-08] MEDS: INSULIN ASPART 300 UNITS/3 ML INSULN.PEN SQ SCH ×3 (08:00→16:52)
--- NOTE | 2016-10-08 08:46 | PDOC2 ---
MOHAMUD SALINAS [employer] DESIGNATE 10/08/16 0846: CONSULT Date of Consult Date of Consult DATE: 10/08/16 TIME: 08:38 Reason for Consult Reason for Consult: hypercalcemia Referring Physician Referring Physician: ER Identification/Chief Complaint Chief Complaint weakness Problems: Source Source: Chart review, Patient History of Present Illness Reason for Visit: Reports decline in health last 2 weeks, she was recently admitted for fever, anemia, and UTI. She discharged and last week underwent a colonoscopy. After the preop and scope her weakness worsened quickly and continued to have loose stools On admission it was noted that she had a elevated calcium level and her renal function was poor. She did have a right thyroidectomy and right inferior parathyroidectomy 10/03/[address] Treadwell. I reviewed her labs from last admission this month and her calcium level was normal and low. Past Medical History Cardiovascular: HTN, Hyperlipidemia, Other Pulmonary: No pertinent hx GI: No pertinent hx Hepatobiliary: No pertinent hx Psych: No pertinent hx Rheumatologic: No pertinent hx Infectious disease: No pertinent hx Endocrine: Diabetes, Hyperparathyroidism, Osteoporosis Past Surgical History Past Surgical History: Other (parathyroid) Family History Family History: Diabetes, Hypertension, Other Social History No ALCOHOL: none Drugs: None Current Medications Current Medications Current Medications Sodium Chloride 1,000 ml @ 1,000 mls/hr 1X ONCE IV Last administered on 11:12; Start 10/07/16 at 11:30; Stop 10/07/16 at 12:29; Status DC Ondansetron HCl (Zofran) 4 mg PRN Q8HRS PRN IV NAUSEA/VOMITING Last administered on 10/07/16 16:56; Start 10/07/16 at 11:30; Stop 10/08/16 at 11:29 Sodium Chloride 1,000 ml @ 125 mls/hr 1X ONCE IV ; Start 10/07/16 at 12:15; Stop 10/07/16 at 20:14; Status DC Sodium Chloride 1,000 ml @ 100 mls/hr Q10H IV Last administered on 10/08/16 03:35; Start 10/07/16 at 15:30 Atorvastatin Calcium (Lipitor) 40 mg QHS PO Last administered on 10/07/16 21: 15; Start 10/07/16 at 21:00 Gabapentin (Neurontin) 100 mg QHS PO Last administered on 10/07/16 21:15; Start 10/07/16 at 21:00 Acetaminophen/ Hydrocodone Bitart (Lortab 5/325) 1 tab PRN Q4HRS PRN PO MILD PAIN; Start 10/07/16 at 16:15 Non-Formulary Medication 2 mg WEEKLY SQ ; Start 10/14/16 at 09:00; Status UNV Budesonide (Pulmicort) 0.5 mg RTBID NEB ; Start 10/07/16 at 20:00 Insulin Detemir (Levemir) 15 units QHS SQ ; Start 10/07/16 at 21:00 Losartan Potassium (Cozaar) 100 mg QHS PO Last administered on 10/07/16 21:15 ; Start 10/07/16 at 21:00 Multivitamins (Thera M Plus) 1 tab DAILY PO ; Start 10/08/16 at 09:00 Insulin Aspart (NovoLOG) 0-7 UNITS TIDWMEALS SQ ; Start 10/07/16 at 17:00 Dextrose (Dextrose 50%-Water Syringe) 12.5 gm PRN Q15MIN PRN IV SEE COMMENTS; Start 10/07/16 at 16:15 Enoxaparin Sodium (Lovenox Per Pharmacy Prophylaxis Dosing) 1 each PRN DAILY PRN MC SEE COMMENTS; Start 10/07/16 at 16:15; Status UNV Enoxaparin Sodium (Lovenox 40mg Syringe) 40 mg Q24H SQ Last administered on 21:19; Start 10/07/16 at 18:00 Ondansetron HCl (Zofran) 4 mg PRN Q6HRS PRN IV NAUSEA/VOMITING; Start 10/07/16 at 16:30 Active Scripts Active Hydrocodone-Apap 5-325 (Hydrocodone Bit/Acetaminophen) 1 Each Tablet 1 Tab PO PRN Q4HRS PRN Reported Cephalexin 500 Mg Capsule 1 Cap PO DAILY Flovent 100MCG Diskus (Fluticasone Propionate) 100 Mcg Disk.w.dev 1 Puff IH BID Multi-Day Vitamins (Multivitamin) 1 Each Tablet 1 Tab PO DAILY Bydureon (Exenatide Microspheres) 2 Mg Vial 2 Mg SQ WEEKLY Losartan Potassium 100 Mg Tablet 100 Mg PO HS Gabapentin 100 Mg Capsule 100 Mg PO QHS Metformin Hcl 1,000 Mg Tablet 1,000 Mg PO BID Alendronate Sodium 70 Mg Tablet 70 Mg PO WEEKLY PATIENT TAKES ON SATURDAY Atorvastatin Calcium 40 Mg Tablet 40 Mg PO QPM Lantus Solostar (Insulin Glargine,Hum.rec.anlog) 100 Unit/1 Ml Insuln.pen 15 Units SQ QHS Allergies Allergies: Coded Allergies: codeine (Verified Adverse Reaction, Intermediate, Nausea and Vomiting, ) tramadol (Verified Adverse Reaction, Intermediate, Nausea and Vomiting, ) ROS General: No: Chills, Other (fevers) PSYCHOLOGICAL ROS: No: Anxiety, Depression Eyes: No Blurry vision, No Double vision HEENT: No: Heacaches, Sore Throat Hematological and Lymphatic: No: Bleeding Problems, Blood Clots Respiratory: YES: SOB with excertion, No: Cough Cardiovascular: No Chest Pain, No Palpitations Gastrointestinal: Yes Vomiting (x 1 yesteryday), No Abdominal Pain Genitourinary: No Dysuria, No Hematuria Musculoskeletal: No Joint Pain, No Muscle Pain Neurological: Yes Impaired Coord/balance (recent fall), No Numbness/Tingling Skin: No Pruritus, No Rash Physical Exam General: Alert, Oriented X3, Cooperative, No acute distress HEENT: PERRLA, Mucous membr. moist/pink, Other (scar noted to neck from previous surgery ) Lungs: Clear to auscultation, Normal air movement Heart: Regular rate, Normal S1, Normal S2, No murmurs Abdomen: Soft, No tenderness Extremities: No clubbing, No cyanosis Skin: No rashes, No breakdown Neuro: Normal gait, Normal speech Psych/Mental Status: Mental status NL, Mood NL MUSCULOSKELETAL: No deformity, No swelling Vitals VITALS Vital Signs Date Time Temp Pulse Resp B/P (MAP) Pulse Ox O2 Delivery O2 Flow Rate FiO2 10/08/16 07:00 96.6 79 18 166/73 (104) 95 Room Air 96.6 Labs Labs Laboratory Tests Test 10/07/16 10:08 10/07/16 11:15 10/07/16 12:56 10/07/16 12:59 White Blood Count 8.4 x10^3/uL (4.0-11.0) Red Blood Count 4.34 x10^6/uL (3.50-5.40) Hemoglobin 11.5 g/dL (12.0-15.5) Hematocrit 35.1 % (36.0-47.0) Mean Corpuscular Volume 81 fL (79-100) Mean Corpuscular Hemoglobin 26 pg (25-35) Mean Corpuscular Hemoglobin Concent 33 g/dL (31-37) Red Cell Distribution Width 16.1 % (11.5-14.5) Platelet Count 570 x10^3/uL (140-400) Neutrophils (%) (Auto) 70 % (31-73) Lymphocytes (%) (Auto) 18 % (24-48) Monocytes (%) (Auto) 7 % (0-9) Eosinophils (%) (Auto) 3 % (0-3) Basophils (%) (Auto) 1 % (0-3) Neutrophils # (Auto) 5.9 x10^3uL (1.8-7.7) Lymphocytes # (Auto) 1.5 x10^3/uL (1.0-4.8) Monocytes # (Auto) 0.6 x10^3/uL (0.0-1.1) Eosinophils # (Auto) 0.3 x10^3/uL (0.0-0.7) Basophils # (Auto) 0.1 x10^3/uL (0.0-0.2) Prothrombin Time 13.0 SEC (11.7-14.0) Prothromb Time International Ratio 1.0 (0.8-1.1) Sodium Level 136 mmol/L (136-145) Potassium Level 4.7 mmol/L (3.5-5.1) Chloride Level 97 mmol/L (98-107) Carbon Dioxide Level 29 mmol/L (21-32) Anion Gap 10 (6-14) Blood Urea Nitrogen 21 mg/dL (7-20) Creatinine 1.4 mg/dL (0.6-1.0) Estimated GFR (Cockcroft-Gault) 36.5 Glucose Level 143 mg/dL (70-99) Calcium Level 13.2 mg/dL (8.5-10.1) Magnesium Level 1.6 mg/dL (1.8-2.4) Total Bilirubin 0.9 mg/dL (0.2-1.0) Direct Bilirubin 0.2 mg/dL (0.0-0.2) Aspartate Amino Transf (AST/SGOT) 28 U/L (15-37) Alanine Aminotransferase (ALT/SGPT) 53 U/L (14-59) Alkaline Phosphatase 222 U/L (46-116) Creatine Kinase 20 U/L (26-192) Creatine Kinase MB (Mass) < 0.5 ng/mL (0.0-3.6) Creatine Kinase MB Relative Index % (0-4) Troponin I Quantitative < 0.017 ng/mL (0.000-0.055) RL-Vui-D-Type Natriuretic Peptide 128 pg/mL (0-449) Total Protein 7.8 g/dL (6.4-8.2) Albumin 3.9 g/dL (3.4-5.0) Lipase 146 U/L (73-393) Thyroid Stimulating Hormone (TSH) 1.903 uIU/mL (0.358-3.74) Stool Occult Blood Negative (NEG) Urine Collection Type Unknown Urine Color Yellow Urine Clarity Clear Urine pH 7.0 Urine Specific [place] <=1.005 Urine Protein Negative mg/dL (NEG-TRACE) Urine Glucose (UA) Negative mg/dL (NEG) Urine Ketones (Stick) Negative mg/dL (NEG) Urine Blood Negative (NEG) Urine Nitrite Negative (NEG) Urine Bilirubin Negative (NEG) Urine Urobilinogen Dipstick 0.2 mg/dL (0.2 mg/dL) Urine Leukocyte Esterase Negative (NEG) Urine RBC 1-2 /HPF (0-2) Urine WBC 5-10 /HPF (0-4) Urine Squamous Epithelial Cells Few /LPF Urine Bacteria 0 /HPF (0-FEW) Glucose (Fingerstick) 108 mg/dL (70-99) Test 10/07/16 16:25 10/07/16 17:30 10/07/16 20:49 10/07/16 23:25 Glucose (Fingerstick) 120 mg/dL (70-99) 118 mg/dL (70-99) Troponin I Quantitative < 0.017 ng/mL (0.000-0.055) < 0.017 ng/mL (0.000-0.055) Test 10/08/16 05:20 10/08/16 07:40 White Blood Count 7.5 x10^3/uL (4.0-11.0) Red Blood Count 3.66 x10^6/uL (3.50-5.40) Hemoglobin 9.8 g/dL (12.0-15.5) Hematocrit 28.9 % (36.0-47.0) Mean Corpuscular Volume 79 fL (79-100) Mean Corpuscular Hemoglobin 27 pg (25-35) Mean Corpuscular Hemoglobin Concent 34 g/dL (31-37) Red Cell Distribution Width 16.5 % (11.5-14.5) Platelet Count 481 x10^3/uL (140-400) Neutrophils (%) (Auto) 68 % (31-73) Lymphocytes (%) (Auto) 21 % (24-48) Monocytes (%) (Auto) 8 % (0-9) Eosinophils (%) (Auto) 2 % (0-3) Basophils (%) (Auto) 2 % (0-3) Neutrophils # (Auto) 5.0 x10^3uL (1.8-7.7) Lymphocytes # (Auto) 1.5 x10^3/uL (1.0-4.8) Monocytes # (Auto) 0.6 x10^3/uL (0.0-1.1) Eosinophils # (Auto) 0.2 x10^3/uL (0.0-0.7) Basophils # (Auto) 0.1 x10^3/uL (0.0-0.2) Sodium Level 138 mmol/L (136-145) Potassium Level 3.8 mmol/L (3.5-5.1) Chloride Level 102 mmol/L (98-107) Carbon Dioxide Level 28 mmol/L (21-32) Anion Gap 8 (6-14) Blood Urea Nitrogen 16 mg/dL (7-20) Creatinine 1.2 mg/dL (0.6-1.0) Estimated GFR (Cockcroft-Gault) 43.6 Glucose Level 124 mg/dL (70-99) Calcium Level 10.8 mg/dL (8.5-10.1) Ionized Calcium 1.47 mmol/L (1.13-1.32) Laboratory Tests Test 10/07/16 10:08 10/07/16 11:15 10/07/16 12:56 10/07/16 12:59 White Blood Count 8.4 x10^3/uL (4.0-11.0) Red Blood Count 4.34 x10^6/uL (3.50-5.40) Hemoglobin 11.5 g/dL (12.0-15.5) Hematocrit 35.1 % (36.0-47.0) Mean Corpuscular Volume 81 fL (79-100) Mean Corpuscular Hemoglobin 26 pg (25-35) Mean Corpuscular Hemoglobin Concent 33 g/dL (31-37) Red Cell Distribution Width 16.1 % (11.5-14.5) Platelet Count 570 x10^3/uL (140-400) Neutrophils (%) (Auto) 70 % (31-73) Lymphocytes (%) (Auto) 18 % (24-48) Monocytes (%) (Auto) 7 % (0-9) Eosinophils (%) (Auto) 3 % (0-3) Basophils (%) (Auto) 1 % (0-3) Neutrophils # (Auto) 5.9 x10^3uL (1.8-7.7) Lymphocytes # (Auto) 1.5 x10^3/uL (1.0-4.8) Monocytes # (Auto) 0.6 x10^3/uL (0.0-1.1) Eosinophils # (Auto) 0.3 x10^3/uL (0.0-0.7) Basophils # (Auto) 0.1 x10^3/uL (0.0-0.2) Prothrombin Time 13.0 SEC (11.7-14.0) Prothromb Time International Ratio 1.0 (0.8-1.1) Sodium Level 136 mmol/L (136-145) Potassium Level 4.7 mmol/L (3.5-5.1) Chloride Level 97 mmol/L (98-107) Carbon Dioxide Level 29 mmol/L (21-32) Anion Gap 10 (6-14) Blood Urea Nitrogen 21 mg/dL (7-20) Creatinine 1.4 mg/dL (0.6-1.0) Estimated GFR (Cockcroft-Gault) 36.5 Glucose Level 143 mg/dL (70-99) Calcium Level 13.2 mg/dL (8.5-10.1) Magnesium Level 1.6 mg/dL (1.8-2.4) Total Bilirubin 0.9 mg/dL (0.2-1.0) Direct Bilirubin 0.2 mg/dL (0.0-0.2) Aspartate Amino Transf (AST/SGOT) 28 U/L (15-37) Alanine Aminotransferase (ALT/SGPT) 53 U/L (14-59) Alkaline Phosphatase 222 U/L (46-116) Creatine Kinase 20 U/L (26-192) Creatine Kinase MB (Mass) < 0.5 ng/mL (0.0-3.6) Creatine Kinase MB Relative Index % (0-4) Troponin I Quantitative < 0.017 ng/mL (0.000-0.055) EY-Neb-W-Type Natriuretic Peptide 128 pg/mL (0-449) Total Protein 7.8 g/dL (6.4-8.2) Albumin 3.9 g/dL (3.4-5.0) Lipase 146 U/L (73-393) Thyroid Stimulating Hormone (TSH) 1.903 uIU/mL (0.358-3.74) Stool Occult Blood Negative (NEG) Urine Collection Type Unknown Urine Color Yellow Urine Clarity Clear Urine pH 7.0 Urine Specific [place] <=1.005 Urine Protein Negative mg/dL (NEG-TRACE) Urine Glucose (UA) Negative mg/dL (NEG) Urine Ketones (Stick) Negative mg/dL (NEG) Urine Blood Negative (NEG) Urine Nitrite Negative (NEG) Urine Bilirubin Negative (NEG) Urine Urobilinogen Dipstick 0.2 mg/dL (0.2 mg/dL) Urine Leukocyte Esterase Negative (NEG) Urine RBC 1-2 /HPF (0-2) Urine WBC 5-10 /HPF (0-4) Urine Squamous Epithelial Cells Few /LPF Urine Bacteria 0 /HPF (0-FEW) Glucose (Fingerstick) 108 mg/dL (70-99) Test 10/07/16 16:25 10/07/16 17:30 10/07/16 20:49 10/07/16 23:25 Glucose (Fingerstick) 120 mg/dL (70-99) 118 mg/dL (70-99) Troponin I Quantitative < 0.017 ng/mL (0.000-0.055) < 0.017 ng/mL (0.000-0.055) Test 10/08/16 05:20 10/08/16 07:40 White Blood Count 7.5 x10^3/uL (4.0-11.0) Red Blood Count 3.66 x10^6/uL (3.50-5.40) Hemoglobin 9.8 g/dL (12.0-15.5) Hematocrit 28.9 % (36.0-47.0) Mean Corpuscular Volume 79 fL (79-100) Mean Corpuscular Hemoglobin 27 pg (25-35) Mean Corpuscular Hemoglobin Concent 34 g/dL (31-37) Red Cell Distribution Width 16.5 % (11.5-14.5) Platelet Count 481 x10^3/uL (140-400) Neutrophils (%) (Auto) 68 % (31-73) Lymphocytes (%) (Auto) 21 % (24-48) Monocytes (%) (Auto) 8 % (0-9) Eosinophils (%) (Auto) 2 % (0-3) Basophils (%) (Auto) 2 % (0-3) Neutrophils # (Auto) 5.0 x10^3uL (1.8-7.7) Lymphocytes # (Auto) 1.5 x10^3/uL (1.0-4.8) Monocytes # (Auto) 0.6 x10^3/uL (0.0-1.1) Eosinophils # (Auto) 0.2 x10^3/uL (0.0-0.7) Basophils # (Auto) 0.1 x10^3/uL (0.0-0.2) Sodium Level 138 mmol/L (136-145) Potassium Level 3.8 mmol/L (3.5-5.1) Chloride Level 102 mmol/L (98-107) Carbon Dioxide Level 28 mmol/L (21-32) Anion Gap 8 (6-14) Blood Urea Nitrogen 16 mg/dL (7-20) Creatinine 1.2 mg/dL (0.6-1.0) Estimated GFR (Cockcroft-Gault) 43.6 Glucose Level 124 mg/dL (70-99) Calcium Level 10.8 mg/dL (8.5-10.1) Ionized Calcium 1.47 mmol/L (1.13-1.32) Assessment/Plan Assessment/Plan weakness hypercalcemia dehydration ARF labs improved today with hydration will review findings with CAITY Johnson MD 10/08/16 1600: CONSULT Allergies Allergies: Coded Allergies: codeine (Verified Adverse Reaction, Intermediate, Nausea and Vomiting, ) tramadol (Verified Adverse Reaction, Intermediate, Nausea and Vomiting, ) Assessment/Plan Assessment/Plan Pt seen and examined by myself; 75 year old female known to me from prior parathyroidectomy on 10/03/15. She had an enlarged R inferior parathyroid adenoma weighing 1.432 gm which was removed; her postoperative calciums were normal. She was admitted with marked weakness, HPI above reviewed; She had some similar complaints and was admitted earlier this month. On 09/23/16 a calcium level was normal at 9.2. She was found to have elevations in the AST/ ALT and GI was consulted for evaluation. On 10/07 she returned to the ER and her calcium level at that time was 13.2. PMH/PSH/ROS/SH as above; exam; elderly female, appears fatigued, denies pain, neck with healed scar, lungs clear, heart RR and R, abdomen soft, nontender, ext neg for edema; A/P) Weakness, hypercalcemia, elevated LFTs; The hypercalcemia is acute with a normal level only two weeks ago, would seem unusual for a parathyroid source; Nephrology following and evaluation underway; will check PTH level. MOHAMUD SALINAS APRN Oct 08, 2016 08:46 CAITY TREADWELL MD Oct 08, 2016 16:00
[2016-10-08] MEDS: MULTIVITAMIN with MINERAL TABLET. PO SCH (10:08)
--- NOTE | 2016-10-08 11:35 | PDOC2 ---
CONSULT Date of Consult Date of Consult DATE: 10/08/16 TIME: 11:30 Reason for Consult Reason for Consult: HIGH CA AND JOHAN Referring Physician Referring Physician: SHAMIR Identification/Chief Complaint Chief Complaint WEAK AND CONFUSED Problems: Source Source: Chart review, Patient History of Present Illness Reason for Visit: THIS IS A 75 YR OLD ADMITTED WITH GENERALIZED WEAKNESS AND SOME CONFUSION. SHE IS NOTED TO HAVE A CA OF 13. HX NOTABLE FOR A PARATHYROID ADENOMA RESECTION IN 2015. CR IS 1.4. NO SUPPLEMENTAL CA INTAKE NOTED BY HX. NO CKD HX Past Medical History Cardiovascular: HTN, Hyperlipidemia, Other Pulmonary: No pertinent hx GI: No pertinent hx Hepatobiliary: No pertinent hx Psych: No pertinent hx Rheumatologic: No pertinent hx Infectious disease: No pertinent hx Endocrine: Diabetes, Hyperparathyroidism, Osteoporosis Past Surgical History Past Surgical History PARATHYROIDECTOMY Past Surgical History: Other (parathyroid) Family History Family History: Diabetes, Hypertension, Other Social History No ALCOHOL: none Drugs: None Current Medications Current Medications Current Medications Sodium Chloride 1,000 ml @ 1,000 mls/hr 1X ONCE IV Last administered on 11:12; Start 10/07/16 at 11:30; Stop 10/07/16 at 12:29; Status DC Ondansetron HCl (Zofran) 4 mg PRN Q8HRS PRN IV NAUSEA/VOMITING Last administered on 10/07/16 16:56; Start 10/07/16 at 11:30; Stop 10/08/16 at 11:29 ; Status DC Sodium Chloride 1,000 ml @ 125 mls/hr 1X ONCE IV ; Start 10/07/16 at 12:15; Stop 10/07/16 at 20:14; Status DC Sodium Chloride 1,000 ml @ 100 mls/hr Q10H IV Last administered on 10/08/16 03:35; Start 10/07/16 at 15:30 Atorvastatin Calcium (Lipitor) 40 mg QHS PO Last administered on 10/07/16 21: 15; Start 10/07/16 at 21:00 Gabapentin (Neurontin) 100 mg QHS PO Last administered on 10/07/16 21:15; Start 10/07/16 at 21:00 Acetaminophen/ Hydrocodone Bitart (Lortab 5/325) 1 tab PRN Q4HRS PRN PO MILD PAIN; Start 10/07/16 at 16:15 Non-Formulary Medication 2 mg WEEKLY SQ ; Start 10/14/16 at 09:00; Status UNV Budesonide (Pulmicort) 0.5 mg RTBID NEB ; Start 10/07/16 at 20:00 Insulin Detemir (Levemir) 15 units QHS SQ ; Start 10/07/16 at 21:00 Losartan Potassium (Cozaar) 100 mg QHS PO Last administered on 10/07/16 21:15 ; Start 10/07/16 at 21:00 Multivitamins (Thera M Plus) 1 tab DAILY PO Last administered on 10/08/16 10: 08; Start 10/08/16 at 09:00 Insulin Aspart (NovoLOG) 0-7 UNITS TIDWMEALS SQ ; Start 10/07/16 at 17:00 Dextrose (Dextrose 50%-Water Syringe) 12.5 gm PRN Q15MIN PRN IV SEE COMMENTS; Start 10/07/16 at 16:15 Enoxaparin Sodium (Lovenox Per Pharmacy Prophylaxis Dosing) 1 each PRN DAILY PRN MC SEE COMMENTS; Start 10/07/16 at 16:15; Status UNV Enoxaparin Sodium (Lovenox 40mg Syringe) 40 mg Q24H SQ Last administered on 21:19; Start 10/07/16 at 18:00 Ondansetron HCl (Zofran) 4 mg PRN Q6HRS PRN IV NAUSEA/VOMITING; Start 10/07/16 at 16:30 Active Scripts Active Hydrocodone-Apap 5-325 (Hydrocodone Bit/Acetaminophen) 1 Each Tablet 1 Tab PO PRN Q4HRS PRN Reported Cephalexin 500 Mg Capsule 1 Cap PO DAILY Flovent 100MCG Diskus (Fluticasone Propionate) 100 Mcg Disk.w.dev 1 Puff IH BID Multi-Day Vitamins (Multivitamin) 1 Each Tablet 1 Tab PO DAILY Bydureon (Exenatide Microspheres) 2 Mg Vial 2 Mg SQ WEEKLY Losartan Potassium 100 Mg Tablet 100 Mg PO HS Gabapentin 100 Mg Capsule 100 Mg PO QHS Metformin Hcl 1,000 Mg Tablet 1,000 Mg PO BID Alendronate Sodium 70 Mg Tablet 70 Mg PO WEEKLY PATIENT TAKES ON SATURDAY Atorvastatin Calcium 40 Mg Tablet 40 Mg PO QPM Lantus Solostar (Insulin Glargine,Hum.rec.anlog) 100 Unit/1 Ml Insuln.pen 15 Units SQ QHS Allergies Allergies: Coded Allergies: codeine (Verified Adverse Reaction, Intermediate, Nausea and Vomiting, ) tramadol (Verified Adverse Reaction, Intermediate, Nausea and Vomiting, ) ROS Review of System CONFUSED, UNABLE TO OBTAIN Physical Exam General: Alert, Cooperative, No acute distress HEENT: Atraumatic, PERRLA, Mucous membr. moist/pink Lungs: Clear to auscultation, Normal air movement Heart: Regular rate, Normal S1 Abdomen: Normal bowel sounds, No tenderness Extremities: No clubbing Neuro: Other (NO ASYMMETRY) Psych/Mental Status: Other (CONFUSED) MUSCULOSKELETAL: No deformity, No swelling Vitals VITALS Vital Signs Date Time Temp Pulse Resp B/P (MAP) Pulse Ox O2 Delivery O2 Flow Rate FiO2 10/08/16 10:37 95.7 83 18 157/70 (99) 95 Room Air 95.7 Labs Labs Laboratory Tests Test 10/07/16 10:08 10/07/16 11:15 10/07/16 12:56 10/07/16 12:59 White Blood Count 8.4 x10^3/uL (4.0-11.0) Red Blood Count 4.34 x10^6/uL (3.50-5.40) Hemoglobin 11.5 g/dL (12.0-15.5) Hematocrit 35.1 % (36.0-47.0) Mean Corpuscular Volume 81 fL (79-100) Mean Corpuscular Hemoglobin 26 pg (25-35) Mean Corpuscular Hemoglobin Concent 33 g/dL (31-37) Red Cell Distribution Width 16.1 % (11.5-14.5) Platelet Count 570 x10^3/uL (140-400) Neutrophils (%) (Auto) 70 % (31-73) Lymphocytes (%) (Auto) 18 % (24-48) Monocytes (%) (Auto) 7 % (0-9) Eosinophils (%) (Auto) 3 % (0-3) Basophils (%) (Auto) 1 % (0-3) Neutrophils # (Auto) 5.9 x10^3uL (1.8-7.7) Lymphocytes # (Auto) 1.5 x10^3/uL (1.0-4.8) Monocytes # (Auto) 0.6 x10^3/uL (0.0-1.1) Eosinophils # (Auto) 0.3 x10^3/uL (0.0-0.7) Basophils # (Auto) 0.1 x10^3/uL (0.0-0.2) Prothrombin Time 13.0 SEC (11.7-14.0) Prothromb Time International Ratio 1.0 (0.8-1.1) Sodium Level 136 mmol/L (136-145) Potassium Level 4.7 mmol/L (3.5-5.1) Chloride Level 97 mmol/L (98-107) Carbon Dioxide Level 29 mmol/L (21-32) Anion Gap 10 (6-14) Blood Urea Nitrogen 21 mg/dL (7-20) Creatinine 1.4 mg/dL (0.6-1.0) Estimated GFR (Cockcroft-Gault) 36.5 Glucose Level 143 mg/dL (70-99) Calcium Level 13.2 mg/dL (8.5-10.1) Magnesium Level 1.6 mg/dL (1.8-2.4) Total Bilirubin 0.9 mg/dL (0.2-1.0) Direct Bilirubin 0.2 mg/dL (0.0-0.2) Aspartate Amino Transf (AST/SGOT) 28 U/L (15-37) Alanine Aminotransferase (ALT/SGPT) 53 U/L (14-59) Alkaline Phosphatase 222 U/L (46-116) Creatine Kinase 20 U/L (26-192) Creatine Kinase MB (Mass) < 0.5 ng/mL (0.0-3.6) Creatine Kinase MB Relative Index % (0-4) Troponin I Quantitative < 0.017 ng/mL (0.000-0.055) NR-Mob-G-Type Natriuretic Peptide 128 pg/mL (0-449) Total Protein 7.8 g/dL (6.4-8.2) Albumin 3.9 g/dL (3.4-5.0) Lipase 146 U/L (73-393) Thyroid Stimulating Hormone (TSH) 1.903 uIU/mL (0.358-3.74) Stool Occult Blood Negative (NEG) Urine Collection Type Unknown Urine Color Yellow Urine Clarity Clear Urine pH 7.0 Urine Specific [place] <=1.005 Urine Protein Negative mg/dL (NEG-TRACE) Urine Glucose (UA) Negative mg/dL (NEG) Urine Ketones (Stick) Negative mg/dL (NEG) Urine Blood Negative (NEG) Urine Nitrite Negative (NEG) Urine Bilirubin Negative (NEG) Urine Urobilinogen Dipstick 0.2 mg/dL (0.2 mg/dL) Urine Leukocyte Esterase Negative (NEG) Urine RBC 1-2 /HPF (0-2) Urine WBC 5-10 /HPF (0-4) Urine Squamous Epithelial Cells Few /LPF Urine Bacteria 0 /HPF (0-FEW) Glucose (Fingerstick) 108 mg/dL (70-99) Test 10/07/16 16:25 10/07/16 17:30 10/07/16 20:49 10/07/16 23:25 Glucose (Fingerstick) 120 mg/dL (70-99) 118 mg/dL (70-99) Troponin I Quantitative < 0.017 ng/mL (0.000-0.055) < 0.017 ng/mL (0.000-0.055) Test 10/08/16 05:20 10/08/16 07:19 10/08/16 07:40 White Blood Count 7.5 x10^3/uL (4.0-11.0) Red Blood Count 3.66 x10^6/uL (3.50-5.40) Hemoglobin 9.8 g/dL (12.0-15.5) Hematocrit 28.9 % (36.0-47.0) Mean Corpuscular Volume 79 fL (79-100) Mean Corpuscular Hemoglobin 27 pg (25-35) Mean Corpuscular Hemoglobin Concent 34 g/dL (31-37) Red Cell Distribution Width 16.5 % (11.5-14.5) Platelet Count 481 x10^3/uL (140-400) Neutrophils (%) (Auto) 68 % (31-73) Lymphocytes (%) (Auto) 21 % (24-48) Monocytes (%) (Auto) 8 % (0-9) Eosinophils (%) (Auto) 2 % (0-3) Basophils (%) (Auto) 2 % (0-3) Neutrophils # (Auto) 5.0 x10^3uL (1.8-7.7) Lymphocytes # (Auto) 1.5 x10^3/uL (1.0-4.8) Monocytes # (Auto) 0.6 x10^3/uL (0.0-1.1) Eosinophils # (Auto) 0.2 x10^3/uL (0.0-0.7) Basophils # (Auto) 0.1 x10^3/uL (0.0-0.2) Sodium Level 138 mmol/L (136-145) Potassium Level 3.8 mmol/L (3.5-5.1) Chloride Level 102 mmol/L (98-107) Carbon Dioxide Level 28 mmol/L (21-32) Anion Gap 8 (6-14) Blood Urea Nitrogen 16 mg/dL (7-20) Creatinine 1.2 mg/dL (0.6-1.0) Estimated GFR (Cockcroft-Gault) 43.6 Glucose Level 124 mg/dL (70-99) Calcium Level 10.8 mg/dL (8.5-10.1) Magnesium Level 1.6 mg/dL (1.8-2.4) Glucose (Fingerstick) 116 mg/dL (70-99) Ionized Calcium 1.47 mmol/L (1.13-1.32) Laboratory Tests Test 10/07/16 12:56 10/07/16 12:59 10/07/16 16:25 10/07/16 17:30 Urine Collection Type Unknown Urine Color Yellow Urine Clarity Clear Urine pH 7.0 Urine Specific [place] <=1.005 Urine Protein Negative mg/dL (NEG-TRACE) Urine Glucose (UA) Negative mg/dL (NEG) Urine Ketones (Stick) Negative mg/dL (NEG) Urine Blood Negative (NEG) Urine Nitrite Negative (NEG) Urine Bilirubin Negative (NEG) Urine Urobilinogen Dipstick 0.2 mg/dL (0.2 mg/dL) Urine Leukocyte Esterase Negative (NEG) Urine RBC 1-2 /HPF (0-2) Urine WBC 5-10 /HPF (0-4) Urine Squamous Epithelial Cells Few /LPF Urine Bacteria 0 /HPF (0-FEW) Glucose (Fingerstick) 108 mg/dL (70-99) 120 mg/dL (70-99) Troponin I Quantitative < 0.017 ng/mL (0.000-0.055) Test 10/07/16 20:49 10/07/16 23:25 10/08/16 05:20 10/08/16 07:19 Glucose (Fingerstick) 118 mg/dL (70-99) 116 mg/dL (70-99) Troponin I Quantitative < 0.017 ng/mL (0.000-0.055) White Blood Count 7.5 x10^3/uL (4.0-11.0) Red Blood Count 3.66 x10^6/uL (3.50-5.40) Hemoglobin 9.8 g/dL (12.0-15.5) Hematocrit 28.9 % (36.0-47.0) Mean Corpuscular Volume 79 fL (79-100) Mean Corpuscular Hemoglobin 27 pg (25-35) Mean Corpuscular Hemoglobin Concent 34 g/dL (31-37) Red Cell Distribution Width 16.5 % (11.5-14.5) Platelet Count 481 x10^3/uL (140-400) Neutrophils (%) (Auto) 68 % (31-73) Lymphocytes (%) (Auto) 21 % (24-48) Monocytes (%) (Auto) 8 % (0-9) Eosinophils (%) (Auto) 2 % (0-3) Basophils (%) (Auto) 2 % (0-3) Neutrophils # (Auto) 5.0 x10^3uL (1.8-7.7) Lymphocytes # (Auto) 1.5 x10^3/uL (1.0-4.8) Monocytes # (Auto) 0.6 x10^3/uL (0.0-1.1) Eosinophils # (Auto) 0.2 x10^3/uL (0.0-0.7) Basophils # (Auto) 0.1 x10^3/uL (0.0-0.2) Sodium Level 138 mmol/L (136-145) Potassium Level 3.8 mmol/L (3.5-5.1) Chloride Level 102 mmol/L (98-107) Carbon Dioxide Level 28 mmol/L (21-32) Anion Gap 8 (6-14) Blood Urea Nitrogen 16 mg/dL (7-20) Creatinine 1.2 mg/dL (0.6-1.0) Estimated GFR (Cockcroft-Gault) 43.6 Glucose Level 124 mg/dL (70-99) Calcium Level 10.8 mg/dL (8.5-10.1) Magnesium Level 1.6 mg/dL (1.8-2.4) Test 10/08/16 07:40 Ionized Calcium 1.47 mmol/L (1.13-1.32) Assessment/Plan Assessment/Plan IMP HYPERCALCEMIA HX OR PRIMARY HYPERPARATHYROIDISM HX OF PARTIAL PARATHYROIDECTOMY IN Sep MET ENCEPHALOPATHY MILD JOHAN HYPOMAGNESEMIA PLAN CONT WITH ISOTONIC SALINE CHECK PTH LEVEL REPLACE MAG CHECK PO4 LABS IN AM JERE CHANEL MD Oct 08, 2016 11:35
[2016-10-08] MEDS ORDERED: MAGNESIUM SULFATE 2GM 50 ML IV ONE (12:30)
--- NOTE | 2016-10-08 15:25 | PDOC ---
PROGRESS NOTES Chief Complaint Chief Complaint weakness, acquired, sudden hypercalcemia, history of prior hyperparathyroidism post partial parathyroidectomy dehydration, acute renal failure, vasomotor, hypomagnesemia Dm2, htn recent UTI plan: fu with renal, cont IVF NS REPLETE Mag decrease levemir to 5u qhs, ssi hold metformin check Ca, vitd, pth talked family at bedside, PTOT DVT PPX History of Present Illness History of Present Illness still weak calcium better with ivf low Mag Vitals Vitals Vital Signs Date Time Temp Pulse Resp B/P (MAP) Pulse Ox O2 Delivery O2 Flow Rate FiO2 10/08/16 14:58 97.7 82 12 155/64 (94) 92 Room Air 97.7 Physical Exam General: Alert, Cooperative, No acute distress Heart: Regular rate, Normal S1 Lungs: Clear Abdomen: Normal bowel sounds, No tenderness Extremities: No clubbing Skin: No rashes, No breakdown Labs LABS Laboratory Tests Test 10/07/16 16:25 10/07/16 17:30 10/07/16 20:49 10/07/16 23:25 Glucose (Fingerstick) 120 mg/dL (70-99) 118 mg/dL (70-99) Troponin I Quantitative < 0.017 ng/mL (0.000-0.055) < 0.017 ng/mL (0.000-0.055) Test 10/08/16 05:20 10/08/16 07:19 10/08/16 07:40 10/08/16 11:42 White Blood Count 7.5 x10^3/uL (4.0-11.0) Red Blood Count 3.66 x10^6/uL (3.50-5.40) Hemoglobin 9.8 g/dL (12.0-15.5) Hematocrit 28.9 % (36.0-47.0) Mean Corpuscular Volume 79 fL (79-100) Mean Corpuscular Hemoglobin 27 pg (25-35) Mean Corpuscular Hemoglobin Concent 34 g/dL (31-37) Red Cell Distribution Width 16.5 % (11.5-14.5) Platelet Count 481 x10^3/uL (140-400) Neutrophils (%) (Auto) 68 % (31-73) Lymphocytes (%) (Auto) 21 % (24-48) Monocytes (%) (Auto) 8 % (0-9) Eosinophils (%) (Auto) 2 % (0-3) Basophils (%) (Auto) 2 % (0-3) Neutrophils # (Auto) 5.0 x10^3uL (1.8-7.7) Lymphocytes # (Auto) 1.5 x10^3/uL (1.0-4.8) Monocytes # (Auto) 0.6 x10^3/uL (0.0-1.1) Eosinophils # (Auto) 0.2 x10^3/uL (0.0-0.7) Basophils # (Auto) 0.1 x10^3/uL (0.0-0.2) Sodium Level 138 mmol/L (136-145) Potassium Level 3.8 mmol/L (3.5-5.1) Chloride Level 102 mmol/L (98-107) Carbon Dioxide Level 28 mmol/L (21-32) Anion Gap 8 (6-14) Blood Urea Nitrogen 16 mg/dL (7-20) Creatinine 1.2 mg/dL (0.6-1.0) Estimated GFR (Cockcroft-Gault) 43.6 Glucose Level 124 mg/dL (70-99) Calcium Level 10.8 mg/dL (8.5-10.1) Magnesium Level 1.6 mg/dL (1.8-2.4) Glucose (Fingerstick) 116 mg/dL (70-99) 133 mg/dL (70-99) Ionized Calcium 1.47 mmol/L (1.13-1.32) Review of Systems Review of Systems no fever, chills, sob or chest pain Comment Review of Relevant I have reviewed the following items judith (where applicable) has been applied. Labs Laboratory Tests Test 10/07/16 10:08 10/07/16 11:15 10/07/16 12:56 10/07/16 12:59 White Blood Count 8.4 x10^3/uL (4.0-11.0) Red Blood Count 4.34 x10^6/uL (3.50-5.40) Hemoglobin 11.5 g/dL (12.0-15.5) Hematocrit 35.1 % (36.0-47.0) Mean Corpuscular Volume 81 fL (79-100) Mean Corpuscular Hemoglobin 26 pg (25-35) Mean Corpuscular Hemoglobin Concent 33 g/dL (31-37) Red Cell Distribution Width 16.1 % (11.5-14.5) Platelet Count 570 x10^3/uL (140-400) Neutrophils (%) (Auto) 70 % (31-73) Lymphocytes (%) (Auto) 18 % (24-48) Monocytes (%) (Auto) 7 % (0-9) Eosinophils (%) (Auto) 3 % (0-3) Basophils (%) (Auto) 1 % (0-3) Neutrophils # (Auto) 5.9 x10^3uL (1.8-7.7) Lymphocytes # (Auto) 1.5 x10^3/uL (1.0-4.8) Monocytes # (Auto) 0.6 x10^3/uL (0.0-1.1) Eosinophils # (Auto) 0.3 x10^3/uL (0.0-0.7) Basophils # (Auto) 0.1 x10^3/uL (0.0-0.2) Prothrombin Time 13.0 SEC (11.7-14.0) Prothromb Time International Ratio 1.0 (0.8-1.1) Sodium Level 136 mmol/L (136-145) Potassium Level 4.7 mmol/L (3.5-5.1) Chloride Level 97 mmol/L (98-107) Carbon Dioxide Level 29 mmol/L (21-32) Anion Gap 10 (6-14) Blood Urea Nitrogen 21 mg/dL (7-20) Creatinine 1.4 mg/dL (0.6-1.0) Estimated GFR (Cockcroft-Gault) 36.5 Glucose Level 143 mg/dL (70-99) Calcium Level 13.2 mg/dL (8.5-10.1) Magnesium Level 1.6 mg/dL (1.8-2.4) Total Bilirubin 0.9 mg/dL (0.2-1.0) Direct Bilirubin 0.2 mg/dL (0.0-0.2) Aspartate Amino Transf (AST/SGOT) 28 U/L (15-37) Alanine Aminotransferase (ALT/SGPT) 53 U/L (14-59) Alkaline Phosphatase 222 U/L (46-116) Creatine Kinase 20 U/L (26-192) Creatine Kinase MB (Mass) < 0.5 ng/mL (0.0-3.6) Creatine Kinase MB Relative Index % (0-4) Troponin I Quantitative < 0.017 ng/mL (0.000-0.055) VI-Kek-X-Type Natriuretic Peptide 128 pg/mL (0-449) Total Protein 7.8 g/dL (6.4-8.2) Albumin 3.9 g/dL (3.4-5.0) Lipase 146 U/L (73-393) Thyroid Stimulating Hormone (TSH) 1.903 uIU/mL (0.358-3.74) Stool Occult Blood Negative (NEG) Urine Collection Type Unknown Urine Color Yellow Urine Clarity Clear Urine pH 7.0 Urine Specific [place] <=1.005 Urine Protein Negative mg/dL (NEG-TRACE) Urine Glucose (UA) Negative mg/dL (NEG) Urine Ketones (Stick) Negative mg/dL (NEG) Urine Blood Negative (NEG) Urine Nitrite Negative (NEG) Urine Bilirubin Negative (NEG) Urine Urobilinogen Dipstick 0.2 mg/dL (0.2 mg/dL) Urine Leukocyte Esterase Negative (NEG) Urine RBC 1-2 /HPF (0-2) Urine WBC 5-10 /HPF (0-4) Urine Squamous Epithelial Cells Few /LPF Urine Bacteria 0 /HPF (0-FEW) Glucose (Fingerstick) 108 mg/dL (70-99) Test 10/07/16 16:25 10/07/16 17:30 10/07/16 20:49 10/07/16 23:25 Glucose (Fingerstick) 120 mg/dL (70-99) 118 mg/dL (70-99) Troponin I Quantitative < 0.017 ng/mL (0.000-0.055) < 0.017 ng/mL (0.000-0.055) Test 10/08/16 05:20 10/08/16 07:19 10/08/16 07:40 10/08/16 11:42 White Blood Count 7.5 x10^3/uL (4.0-11.0) Red Blood Count 3.66 x10^6/uL (3.50-5.40) Hemoglobin 9.8 g/dL (12.0-15.5) Hematocrit 28.9 % (36.0-47.0) Mean Corpuscular Volume 79 fL (79-100) Mean Corpuscular Hemoglobin 27 pg (25-35) Mean Corpuscular Hemoglobin Concent 34 g/dL (31-37) Red Cell Distribution Width 16.5 % (11.5-14.5) Platelet Count 481 x10^3/uL (140-400) Neutrophils (%) (Auto) 68 % (31-73) Lymphocytes (%) (Auto) 21 % (24-48) Monocytes (%) (Auto) 8 % (0-9) Eosinophils (%) (Auto) 2 % (0-3) Basophils (%) (Auto) 2 % (0-3) Neutrophils # (Auto) 5.0 x10^3uL (1.8-7.7) Lymphocytes # (Auto) 1.5 x10^3/uL (1.0-4.8) Monocytes # (Auto) 0.6 x10^3/uL (0.0-1.1) Eosinophils # (Auto) 0.2 x10^3/uL (0.0-0.7) Basophils # (Auto) 0.1 x10^3/uL (0.0-0.2) Sodium Level 138 mmol/L (136-145) Potassium Level 3.8 mmol/L (3.5-5.1) Chloride Level 102 mmol/L (98-107) Carbon Dioxide Level 28 mmol/L (21-32) Anion Gap 8 (6-14) Blood Urea Nitrogen 16 mg/dL (7-20) Creatinine 1.2 mg/dL (0.6-1.0) Estimated GFR (Cockcroft-Gault) 43.6 Glucose Level 124 mg/dL (70-99) Calcium Level 10.8 mg/dL (8.5-10.1) Magnesium Level 1.6 mg/dL (1.8-2.4) Glucose (Fingerstick) 116 mg/dL (70-99) 133 mg/dL (70-99) Ionized Calcium 1.47 mmol/L (1.13-1.32) Laboratory Tests Test 10/07/16 16:25 10/07/16 17:30 10/07/16 20:49 10/07/16 23:25 Glucose (Fingerstick) 120 mg/dL (70-99) 118 mg/dL (70-99) Troponin I Quantitative < 0.017 ng/mL (0.000-0.055) < 0.017 ng/mL (0.000-0.055) Test 10/08/16 05:20 10/08/16 07:19 10/08/16 07:40 10/08/16 11:42 White Blood Count 7.5 x10^3/uL (4.0-11.0) Red Blood Count 3.66 x10^6/uL (3.50-5.40) Hemoglobin 9.8 g/dL (12.0-15.5) Hematocrit 28.9 % (36.0-47.0) Mean Corpuscular Volume 79 fL (79-100) Mean Corpuscular Hemoglobin 27 pg (25-35) Mean Corpuscular Hemoglobin Concent 34 g/dL (31-37) Red Cell Distribution Width 16.5 % (11.5-14.5) Platelet Count 481 x10^3/uL (140-400) Neutrophils (%) (Auto) 68 % (31-73) Lymphocytes (%) (Auto) 21 % (24-48) Monocytes (%) (Auto) 8 % (0-9) Eosinophils (%) (Auto) 2 % (0-3) Basophils (%) (Auto) 2 % (0-3) Neutrophils # (Auto) 5.0 x10^3uL (1.8-7.7) Lymphocytes # (Auto) 1.5 x10^3/uL (1.0-4.8) Monocytes # (Auto) 0.6 x10^3/uL (0.0-1.1) Eosinophils # (Auto) 0.2 x10^3/uL (0.0-0.7) Basophils # (Auto) 0.1 x10^3/uL (0.0-0.2) Sodium Level 138 mmol/L (136-145) Potassium Level 3.8 mmol/L (3.5-5.1) Chloride Level 102 mmol/L (98-107) Carbon Dioxide Level 28 mmol/L (21-32) Anion Gap 8 (6-14) Blood Urea Nitrogen 16 mg/dL (7-20) Creatinine 1.2 mg/dL (0.6-1.0) Estimated GFR (Cockcroft-Gault) 43.6 Glucose Level 124 mg/dL (70-99) Calcium Level 10.8 mg/dL (8.5-10.1) Magnesium Level 1.6 mg/dL (1.8-2.4) Glucose (Fingerstick) 116 mg/dL (70-99) 133 mg/dL (70-99) Ionized Calcium 1.47 mmol/L (1.13-1.32) Microbiology 10/07/16 Urine Culture - Preliminary, Resulted 10/07/16 Urine Culture Result 1 ([facility]) - Preliminary, Resulted Medications Current Medications Sodium Chloride 1,000 ml @ 1,000 mls/hr 1X ONCE IV Last administered on 11:12; Start 10/07/16 at 11:30; Stop 10/07/16 at 12:29; Status DC Ondansetron HCl (Zofran) 4 mg PRN Q8HRS PRN IV NAUSEA/VOMITING Last administered on 10/07/16 16:56; Start 10/07/16 at 11:30; Stop 10/08/16 at 11:29 ; Status DC Sodium Chloride 1,000 ml @ 125 mls/hr 1X ONCE IV ; Start 10/07/16 at 12:15; Stop 10/07/16 at 20:14; Status DC Sodium Chloride 1,000 ml @ 100 mls/hr Q10H IV Last administered on 10/08/16 12:30; Start 10/07/16 at 15:30 Atorvastatin Calcium (Lipitor) 40 mg QHS PO Last administered on 10/07/16 21: 15; Start 10/07/16 at 21:00 Gabapentin (Neurontin) 100 mg QHS PO Last administered on 10/07/16 21:15; Start 10/07/16 at 21:00 Acetaminophen/ Hydrocodone Bitart (Lortab 5/325) 1 tab PRN Q4HRS PRN PO MILD PAIN; Start 10/07/16 at 16:15 Non-Formulary Medication 2 mg WEEKLY SQ ; Start 10/14/16 at 09:00; Status UNV Budesonide (Pulmicort) 0.5 mg RTBID NEB ; Start 10/07/16 at 20:00 Insulin Detemir (Levemir) 15 units QHS SQ ; Start 10/07/16 at 21:00 Losartan Potassium (Cozaar) 100 mg QHS PO Last administered on 10/07/16 21:15 ; Start 10/07/16 at 21:00 Multivitamins (Thera M Plus) 1 tab DAILY PO Last administered on 10/08/16 10: 08; Start 10/08/16 at 09:00 Insulin Aspart (NovoLOG) 0-7 UNITS TIDWMEALS SQ ; Start 10/07/16 at 17:00 Dextrose (Dextrose 50%-Water Syringe) 12.5 gm PRN Q15MIN PRN IV SEE COMMENTS; Start 10/07/16 at 16:15 Enoxaparin Sodium (Lovenox Per Pharmacy Prophylaxis Dosing) 1 each PRN DAILY PRN MC SEE COMMENTS; Start 10/07/16 at 16:15; Status UNV Enoxaparin Sodium (Lovenox 40mg Syringe) 40 mg Q24H SQ Last administered on 21:19; Start 10/07/16 at 18:00 Ondansetron HCl (Zofran) 4 mg PRN Q6HRS PRN IV NAUSEA/VOMITING; Start 10/07/16 at 16:30 Magnesium Sulfate/ Dextrose 50 ml @ 25 mls/hr 1X ONCE IV Last administered on 10/08/16 12:31; Start 10/08/16 at 12:30; Stop 10/08/16 at 14:29; Status DC Active Scripts Active Hydrocodone-Apap 5-325 (Hydrocodone Bit/Acetaminophen) 1 Each Tablet 1 Tab PO PRN Q4HRS PRN Reported Cephalexin 500 Mg Capsule 1 Cap PO DAILY Flovent 100MCG Diskus (Fluticasone Propionate) 100 Mcg Disk.w.dev 1 Puff IH BID Multi-Day Vitamins (Multivitamin) 1 Each Tablet 1 Tab PO DAILY Bydureon (Exenatide Microspheres) 2 Mg Vial 2 Mg SQ WEEKLY Losartan Potassium 100 Mg Tablet 100 Mg PO HS Gabapentin 100 Mg Capsule 100 Mg PO QHS Metformin Hcl 1,000 Mg Tablet 1,000 Mg PO BID Alendronate Sodium 70 Mg Tablet 70 Mg PO WEEKLY PATIENT TAKES ON SATURDAY Atorvastatin Calcium 40 Mg Tablet 40 Mg PO QPM Lantus Solostar (Insulin Glargine,Hum.rec.anlog) 100 Unit/1 Ml Insuln.pen 15 Units SQ HS Vitals/I & O Vital Sign - Last 24 Hours 10/07/16 10/07/16 10/07/16 10/07/16 19:00 20:00 21:15 22:52 Temp 98.0 97.5 98.0 97.5 Pulse 88 88 91 Resp 18 18 B/P (MAP) 155/73 (100) 155/73 167/79 (108) Pulse Ox 92 93 O2 Delivery Room Air Room Air Room Air 10/08/16 10/08/16 10/08/16 10/08/16 03:00 07:00 08:00 09:29 Temp 97.9 97.7 96.6 97.9 97.7 96.6 Pulse 84 87 79 Resp 18 18 B/P (MAP) 175/84 (114) 158/69 (98) 166/73 (104) Pulse Ox 93 95 95 O2 Delivery Room Air Room Air Room Air Room Air 10/08/16 10/08/16 10:37 14:58 Temp 95.7 97.7 95.7 97.7 Pulse 83 82 Resp 18 12 B/P (MAP) 157/70 (99) 155/64 (94) Pulse Ox 95 92 O2 Delivery Room Air Room Air Intake and Output 10/07/16 10/07/16 10/08/16 15:00 23:00 07:00 Intake Total 300 ml 50 ml Output Total 400 ml Balance -100 ml 50 ml JERONIMO CONTRERAS MD Oct 08, 2016 15:25
[2016-10-08 17:13] LABS: PTH INTACT 19 pg/mL (15-65)
[2016-10-08] MEDS: ENOXAPARIN 40 MG/0.4 ML SYRINGE. SQ SCH (17:51)
[2016-10-08] MEDS: ATORVASTATIN CALCIUM 40 MG TABLET. PO SCH (20:53)
[2016-10-08] MEDS: GABAPENTIN 100 MG CAPSULE. PO SCH (20:54)
[2016-10-08] MEDS: LOSARTAN POTASSIUM 50 MG TABLET. PO SCH (20:54)
[2016-10-08] MEDS: INSULIN DETEMIR 300 UNITS/3 ML INSULN.PEN. SQ SCH (22:22)
[2016-10-09] MEDS: IV NORMAL SALINE 1000ML BAG 1,000 ML IV SCH ×3 (00:07→19:37)
[2016-10-09 03:00] VITALS: BP 160/86
[2016-10-09 05:23] LABS: PTH INTACT 24 pg/mL (15-65)
[2016-10-09 05:47] LABS: GFR 53.8; MAGNESIUM 1.7 mg/dL (1.8-2.4); PHOSPHORUS 2.2 mg/dL (2.6-4.7); POTASSIUM 3.4 mmol/L (3.5-5.1)
[2016-10-09 07:47] VITALS: BP 148/80
[2016-10-09] MEDS: INSULIN ASPART 300 UNITS/3 ML INSULN.PEN SQ SCH ×3 (08:07→17:09)
[2016-10-09] MEDS: MULTIVITAMIN with MINERAL TABLET. PO SCH (08:09)
--- NOTE | 2016-10-09 10:31 | PDOC ---
MOHAMUD SALINAS SOFTWARE CLERK 10/09/16 1031: SURGICAL PROGRESS NOTE Subjective tolerating diet still some weakness but improved today Vital Signs Vital Signs Date Time Temp Pulse Resp B/P (MAP) Pulse Ox O2 Delivery O2 Flow Rate FiO2 10/09/16 08:17 98 Room Air 10/09/16 07:47 98.0 86 22 148/80 (102) 98.0 I&O Intake and Output 10/09/16 07:00 Intake Total 2260 ml Output Total 1200 ml Balance 1060 ml Intake Oral 2260 ml Output Urine Total 1200 ml # Voids 3 General: Alert, Oriented X3, Cooperative, No acute distress Abdomen: Soft, No tenderness Labs Laboratory Tests Test 10/07/16 11:15 10/07/16 12:56 10/07/16 12:59 10/07/16 16:25 Stool Occult Blood Negative (NEG) Urine Collection Type Unknown Urine Color Yellow Urine Clarity Clear Urine pH 7.0 Urine Specific Mccausland <=1.005 Urine Protein Negative mg/dL (NEG-TRACE) Urine Glucose (UA) Negative mg/dL (NEG) Urine Ketones (Stick) Negative mg/dL (NEG) Urine Blood Negative (NEG) Urine Nitrite Negative (NEG) Urine Bilirubin Negative (NEG) Urine Urobilinogen Dipstick 0.2 mg/dL (0.2 mg/dL) Urine Leukocyte Esterase Negative (NEG) Urine RBC 1-2 /HPF (0-2) Urine WBC 5-10 /HPF (0-4) Urine Squamous Epithelial Cells Few /LPF Urine Bacteria 0 /HPF (0-FEW) Glucose (Fingerstick) 108 mg/dL (70-99) 120 mg/dL (70-99) Test 10/07/16 17:30 10/07/16 20:49 10/07/16 23:25 10/08/16 05:20 Troponin I Quantitative < 0.017 ng/mL (0.000-0.055) < 0.017 ng/mL (0.000-0.055) Glucose (Fingerstick) 118 mg/dL (70-99) White Blood Count 7.5 x10^3/uL (4.0-11.0) Red Blood Count 3.66 x10^6/uL (3.50-5.40) Hemoglobin 9.8 g/dL (12.0-15.5) Hematocrit 28.9 % (36.0-47.0) Mean Corpuscular Volume 79 fL (79-100) Mean Corpuscular Hemoglobin 27 pg (25-35) Mean Corpuscular Hemoglobin Concent 34 g/dL (31-37) Red Cell Distribution Width 16.5 % (11.5-14.5) Platelet Count 481 x10^3/uL (140-400) Neutrophils (%) (Auto) 68 % (31-73) Lymphocytes (%) (Auto) 21 % (24-48) Monocytes (%) (Auto) 8 % (0-9) Eosinophils (%) (Auto) 2 % (0-3) Basophils (%) (Auto) 2 % (0-3) Neutrophils # (Auto) 5.0 x10^3uL (1.8-7.7) Lymphocytes # (Auto) 1.5 x10^3/uL (1.0-4.8) Monocytes # (Auto) 0.6 x10^3/uL (0.0-1.1) Eosinophils # (Auto) 0.2 x10^3/uL (0.0-0.7) Basophils # (Auto) 0.1 x10^3/uL (0.0-0.2) Sodium Level 138 mmol/L (136-145) Potassium Level 3.8 mmol/L (3.5-5.1) Chloride Level 102 mmol/L (98-107) Carbon Dioxide Level 28 mmol/L (21-32) Anion Gap 8 (6-14) Blood Urea Nitrogen 16 mg/dL (7-20) Creatinine 1.2 mg/dL (0.6-1.0) Estimated GFR (Cockcroft-Gault) 43.6 Glucose Level 124 mg/dL (70-99) Calcium Level 10.8 mg/dL (8.5-10.1) Magnesium Level 1.6 mg/dL (1.8-2.4) 25-Hydroxy Vitamin D Total 31.0 ng/mL (30.0-100.0) Test 10/08/16 07:19 10/08/16 07:40 10/08/16 11:42 10/08/16 16:23 Glucose (Fingerstick) 116 mg/dL (70-99) 133 mg/dL (70-99) 141 mg/dL (70-99) Ionized Calcium 1.47 mmol/L (1.13-1.32) Test 10/08/16 17:40 10/08/16 21:14 10/09/16 04:50 Estimated GFR (Non- 51 (>59) EGFR 59 (>59) PTH (Intact) Specimen Description Comment (.) Parathyroid Hormone (Intact) 24 pg/mL (15-65) Calcium (PTH Intact) 10.8 mg/dL (8.7-10.3) Creatinine (PTH Intact) 1.05 mg/dL (0.57-1.00) Phosphorus (PTH Intact) 2.5 mg/dL (2.5-4.5) Glucose (Fingerstick) 191 mg/dL (70-99) Sodium Level 141 mmol/L (136-145) Potassium Level 3.4 mmol/L (3.5-5.1) Chloride Level 104 mmol/L (98-107) Carbon Dioxide Level 26 mmol/L (21-32) Anion Gap 11 (6-14) Blood Urea Nitrogen 10 mg/dL (7-20) Creatinine 1.0 mg/dL (0.6-1.0) Estimated GFR (Cockcroft-Gault) 53.8 Glucose Level 144 mg/dL (70-99) Calcium Level 10.0 mg/dL (8.5-10.1) Phosphorus Level 2.2 mg/dL (2.6-4.7) Magnesium Level 1.7 mg/dL (1.8-2.4) Laboratory Tests Test 10/08/16 11:42 10/08/16 16:23 10/08/16 17:40 10/08/16 21:14 Glucose (Fingerstick) 133 mg/dL (70-99) 141 mg/dL (70-99) 191 mg/dL (70-99) Estimated GFR (Non- 51 (>59) EGFR 59 (>59) PTH (Intact) Specimen Description Comment (.) Parathyroid Hormone (Intact) 24 pg/mL (15-65) Calcium (PTH Intact) 10.8 mg/dL (8.7-10.3) Creatinine (PTH Intact) 1.05 mg/dL (0.57-1.00) Phosphorus (PTH Intact) 2.5 mg/dL (2.5-4.5) Test 10/09/16 04:50 Sodium Level 141 mmol/L (136-145) Potassium Level 3.4 mmol/L (3.5-5.1) Chloride Level 104 mmol/L (98-107) Carbon Dioxide Level 26 mmol/L (21-32) Anion Gap 11 (6-14) Blood Urea Nitrogen 10 mg/dL (7-20) Creatinine 1.0 mg/dL (0.6-1.0) Estimated GFR (Cockcroft-Gault) 53.8 Glucose Level 144 mg/dL (70-99) Calcium Level 10.0 mg/dL (8.5-10.1) Phosphorus Level 2.2 mg/dL (2.6-4.7) Magnesium Level 1.7 mg/dL (1.8-2.4) Problem List weakness calcium normalized, PTH normal will review with Dr Treadwell, however no acute surgical recs at this time Problems: CAITY TREADWELL MD 10/09/16 1648: SURGICAL PROGRESS NOTE Assessment/Plan Agree with above, will sign off Problems: MOHAMUD SALINAS APRN Oct 09, 2016 10:31 CAITY TREADWELL MD Oct 09, 2016 16:48
[2016-10-09 11:00] VITALS: BP 146/74
[2016-10-09] MEDS ORDERED: POTASSIUM CHLORIDE 20 MEQ TABLET.ER. PO ONE (11:00)
[2016-10-09] MEDS ORDERED: MAGNESIUM SULFATE 2GM 50 ML IV ONE (11:00)
--- NOTE | 2016-10-09 11:05 | PDOC ---
Renal-Progress Notes Subjective Notes Notes FEELS WELL History of Present Illness Hx of present illness STABLE Vitals Vitals Vital Signs Date Time Temp Pulse Resp B/P (MAP) Pulse Ox O2 Delivery O2 Flow Rate FiO2 10/09/16 08:17 98 Room Air 10/09/16 07:47 98.0 86 22 148/80 (102) 98.0 Weight Weight [ ] I.O. Intake and Output Intake and Output 10/09/16 07:00 Intake Total 2260 ml Output Total 1200 ml Balance 1060 ml Intake Oral 2260 ml Output Urine Total 1200 ml # Voids 3 Labs Labs Laboratory Tests Test 10/08/16 11:42 10/08/16 16:23 10/08/16 17:40 10/08/16 21:14 Glucose (Fingerstick) 133 mg/dL (70-99) 141 mg/dL (70-99) 191 mg/dL (70-99) Estimated GFR (Non- 51 (>59) EGFR 59 (>59) PTH (Intact) Specimen Description Comment (.) Parathyroid Hormone (Intact) 24 pg/mL (15-65) Calcium (PTH Intact) 10.8 mg/dL (8.7-10.3) Creatinine (PTH Intact) 1.05 mg/dL (0.57-1.00) Phosphorus (PTH Intact) 2.5 mg/dL (2.5-4.5) Test 10/09/16 04:50 Sodium Level 141 mmol/L (136-145) Potassium Level 3.4 mmol/L (3.5-5.1) Chloride Level 104 mmol/L (98-107) Carbon Dioxide Level 26 mmol/L (21-32) Anion Gap 11 (6-14) Blood Urea Nitrogen 10 mg/dL (7-20) Creatinine 1.0 mg/dL (0.6-1.0) Estimated GFR (Cockcroft-Gault) 53.8 Glucose Level 144 mg/dL (70-99) Calcium Level 10.0 mg/dL (8.5-10.1) Phosphorus Level 2.2 mg/dL (2.6-4.7) Magnesium Level 1.7 mg/dL (1.8-2.4) Micro Micro Microbiology 10/07/16 Urine Culture - Preliminary, Resulted 10/07/16 Urine Culture Result 1 (OMAIRA) - Preliminary, Resulted Review of Systems Constitutional: yes: weakness, alert, oriented Ears/Nose/Throat: Yes: no symptom reported Eyes: Yes: no symptom reported Cardiovascular: Yes no symptom reported Gastrointestional: Yes: no symptom reported Genitourinary: Yes: no symptom reported Musculoskeletal: Yes: no symptom reported Psychiatric/Neurological: Yes: other (FORGETFUL) Endocrine: Yes: no symptom reported Physical Exam General Appearance: no apparent distress Skin: warm Respiratory: bilateral CTA Heart: S1S2 Genitourinary: bladder flat Extremities: pulses present Neurology: alert, oriented Assessment Assessment IMP HYPERCALCEMIA-RESOLVED MILD JOHAN-RESOLVED LOW PO4 LOW MAG LOW K PLAN NO HYPERPARATHYROID STATE-PTH IS WNL REPLACE K, MAG AND PO4 HAVE ASKED HER TO AVOID ANY SUPPLEMENTAL VIT D AND CALCIUM HAVE ALSO ASKED HER TO HOLD HER WEEKLY ALENDRONATE JERE CHANEL MD Oct 09, 2016 11:05
[2016-10-09] MEDS ORDERED: POTASSIUM CHLORIDE 10 MEQ TABLET.ER. PO ONE (11:15)
[2016-10-09] MEDS: MAGNESIUM SULFATE 2GM 50 ML IV ONE ×2 (11:26→11:39)
--- NOTE | 2016-10-09 13:18 | PDOC ---
PROGRESS NOTES Chief Complaint Chief Complaint weakness, acquired, sudden hypercalcemia, history of prior hyperparathyroidism post partial parathyroidectomy dehydration, acute renal failure, vasomotor, hypomagnesemia Dm2, htn recent UTI hypokalemia hypophosphatemia recent bowel prep for colonoscopy plan: fu with renal, cont IVF NS REPLETE Mag, k, duarte decrease levemir to 5u qhs, ssi hold metformin check Ca, vitd, pth normal PTH talked family at bedside, family wants pt go to snf, pt refuses PTOT,. SW involve DVT PPX dc tmr to snf or History of Present Illness History of Present Illness ROS: no fever, chills, sob or chest pain weak better today calciu normal with ivf low Mag, low Duarte Vitals Vitals Vital Signs Date Time Temp Pulse Resp B/P (MAP) Pulse Ox O2 Delivery O2 Flow Rate FiO2 10/09/16 11:00 97.0 76 20 146/74 (98) 96 Room Air 97.0 Physical Exam General: Alert, Oriented X3, Cooperative, No acute distress Heart: Regular rate, Normal S1 Lungs: Clear Abdomen: Soft, No tenderness Extremities: No clubbing Skin: No rashes, No breakdown Labs LABS Laboratory Tests Test 10/08/16 16:23 10/08/16 17:40 10/08/16 21:14 10/09/16 04:50 Glucose (Fingerstick) 141 mg/dL (70-99) 191 mg/dL (70-99) Estimated GFR (Non- 51 (>59) EGFR 59 (>59) PTH (Intact) Specimen Description Comment (.) Parathyroid Hormone (Intact) 24 pg/mL (15-65) Calcium (PTH Intact) 10.8 mg/dL (8.7-10.3) Creatinine (PTH Intact) 1.05 mg/dL (0.57-1.00) Phosphorus (PTH Intact) 2.5 mg/dL (2.5-4.5) Sodium Level 141 mmol/L (136-145) Potassium Level 3.4 mmol/L (3.5-5.1) Chloride Level 104 mmol/L (98-107) Carbon Dioxide Level 26 mmol/L (21-32) Anion Gap 11 (6-14) Blood Urea Nitrogen 10 mg/dL (7-20) Creatinine 1.0 mg/dL (0.6-1.0) Estimated GFR (Cockcroft-Gault) 53.8 Glucose Level 144 mg/dL (70-99) Calcium Level 10.0 mg/dL (8.5-10.1) Phosphorus Level 2.2 mg/dL (2.6-4.7) Magnesium Level 1.7 mg/dL (1.8-2.4) Review of Systems Review of Systems Comment Review of Relevant I have reviewed the following items judith (where applicable) has been applied. Labs Laboratory Tests Test 10/07/16 16:25 10/07/16 17:30 10/07/16 20:49 10/07/16 23:25 Glucose (Fingerstick) 120 mg/dL (70-99) 118 mg/dL (70-99) Troponin I Quantitative < 0.017 ng/mL (0.000-0.055) < 0.017 ng/mL (0.000-0.055) Test 10/08/16 05:20 10/08/16 07:19 10/08/16 07:40 10/08/16 11:42 White Blood Count 7.5 x10^3/uL (4.0-11.0) Red Blood Count 3.66 x10^6/uL (3.50-5.40) Hemoglobin 9.8 g/dL (12.0-15.5) Hematocrit 28.9 % (36.0-47.0) Mean Corpuscular Volume 79 fL (79-100) Mean Corpuscular Hemoglobin 27 pg (25-35) Mean Corpuscular Hemoglobin Concent 34 g/dL (31-37) Red Cell Distribution Width 16.5 % (11.5-14.5) Platelet Count 481 x10^3/uL (140-400) Neutrophils (%) (Auto) 68 % (31-73) Lymphocytes (%) (Auto) 21 % (24-48) Monocytes (%) (Auto) 8 % (0-9) Eosinophils (%) (Auto) 2 % (0-3) Basophils (%) (Auto) 2 % (0-3) Neutrophils # (Auto) 5.0 x10^3uL (1.8-7.7) Lymphocytes # (Auto) 1.5 x10^3/uL (1.0-4.8) Monocytes # (Auto) 0.6 x10^3/uL (0.0-1.1) Eosinophils # (Auto) 0.2 x10^3/uL (0.0-0.7) Basophils # (Auto) 0.1 x10^3/uL (0.0-0.2) Sodium Level 138 mmol/L (136-145) Potassium Level 3.8 mmol/L (3.5-5.1) Chloride Level 102 mmol/L (98-107) Carbon Dioxide Level 28 mmol/L (21-32) Anion Gap 8 (6-14) Blood Urea Nitrogen 16 mg/dL (7-20) Creatinine 1.2 mg/dL (0.6-1.0) Estimated GFR (Cockcroft-Gault) 43.6 Glucose Level 124 mg/dL (70-99) Calcium Level 10.8 mg/dL (8.5-10.1) Magnesium Level 1.6 mg/dL (1.8-2.4) 25-Hydroxy Vitamin D Total 31.0 ng/mL (30.0-100.0) Glucose (Fingerstick) 116 mg/dL (70-99) 133 mg/dL (70-99) Ionized Calcium 1.47 mmol/L (1.13-1.32) Test 10/08/16 16:23 10/08/16 17:40 10/08/16 21:14 10/09/16 04:50 Glucose (Fingerstick) 141 mg/dL (70-99) 191 mg/dL (70-99) Estimated GFR (Non- 51 (>59) EGFR 59 (>59) PTH (Intact) Specimen Description Comment (.) Parathyroid Hormone (Intact) 24 pg/mL (15-65) Calcium (PTH Intact) 10.8 mg/dL (8.7-10.3) Creatinine (PTH Intact) 1.05 mg/dL (0.57-1.00) Phosphorus (PTH Intact) 2.5 mg/dL (2.5-4.5) Sodium Level 141 mmol/L (136-145) Potassium Level 3.4 mmol/L (3.5-5.1) Chloride Level 104 mmol/L (98-107) Carbon Dioxide Level 26 mmol/L (21-32) Anion Gap 11 (6-14) Blood Urea Nitrogen 10 mg/dL (7-20) Creatinine 1.0 mg/dL (0.6-1.0) Estimated GFR (Cockcroft-Gault) 53.8 Glucose Level 144 mg/dL (70-99) Calcium Level 10.0 mg/dL (8.5-10.1) Phosphorus Level 2.2 mg/dL (2.6-4.7) Magnesium Level 1.7 mg/dL (1.8-2.4) Laboratory Tests Test 10/08/16 16:23 10/08/16 17:40 10/08/16 21:14 10/09/16 04:50 Glucose (Fingerstick) 141 mg/dL (70-99) 191 mg/dL (70-99) Estimated GFR (Non- 51 (>59) EGFR 59 (>59) PTH (Intact) Specimen Description Comment (.) Parathyroid Hormone (Intact) 24 pg/mL (15-65) Calcium (PTH Intact) 10.8 mg/dL (8.7-10.3) Creatinine (PTH Intact) 1.05 mg/dL (0.57-1.00) Phosphorus (PTH Intact) 2.5 mg/dL (2.5-4.5) Sodium Level 141 mmol/L (136-145) Potassium Level 3.4 mmol/L (3.5-5.1) Chloride Level 104 mmol/L (98-107) Carbon Dioxide Level 26 mmol/L (21-32) Anion Gap 11 (6-14) Blood Urea Nitrogen 10 mg/dL (7-20) Creatinine 1.0 mg/dL (0.6-1.0) Estimated GFR (Cockcroft-Gault) 53.8 Glucose Level 144 mg/dL (70-99) Calcium Level 10.0 mg/dL (8.5-10.1) Phosphorus Level 2.2 mg/dL (2.6-4.7) Magnesium Level 1.7 mg/dL (1.8-2.4) Microbiology 10/07/16 Urine Culture - Preliminary, Resulted 10/07/16 Urine Culture Result 1 (OMAIRA) - Preliminary, Resulted Medications Current Medications Sodium Chloride 1,000 ml @ 1,000 mls/hr 1X ONCE IV Last administered on t 11:12; Start 10/07/16 at 11:30; Stop 10/07/16 at 12:29; Status DC Ondansetron HCl (Zofran) 4 mg PRN Q8HRS PRN IV NAUSEA/VOMITING Last administered on 10/07/16 16:56; Start 10/07/16 at 11:30; Stop 10/08/16 at 11:29 ; Status DC Sodium Chloride 1,000 ml @ 125 mls/hr 1X ONCE IV ; Start 10/07/16 at 12:15; Stop 10/07/16 at 20:14; Status DC Sodium Chloride 1,000 ml @ 75 mls/hr [id number] IV Last administered on 08:09; Start 10/07/16 at 15:30 Atorvastatin Calcium (Lipitor) 40 mg QHS PO Last administered on 10/08/16 20: 53; Start 10/07/16 at 21:00 Gabapentin (Neurontin) 100 mg QHS PO Last administered on 10/08/16 20:54; Start 10/07/16 at 21:00 Acetaminophen/ Hydrocodone Bitart (Lortab 5/325) 1 tab PRN Q4HRS PRN PO MILD PAIN Last administered on 10/08/16 22:25; Start 10/07/16 at 16:15 Non-Formulary Medication 2 mg WEEKLY SQ ; Start 10/14/16 at 09:00; Status UNV Budesonide (Pulmicort) 0.5 mg RTBID NEB ; Start 10/07/16 at 20:00 Insulin Detemir (Levemir) 15 units QHS SQ ; Start 10/07/16 at 21:00; Stop at 15:23; Status DC Losartan Potassium (Cozaar) 100 mg QHS PO Last administered on 10/08/16 20:54 ; Start 10/07/16 at 21:00 Multivitamins (Thera M Plus) 1 tab DAILY PO Last administered on 10/09/16 08: 09; Start 10/08/16 at 09:00 Insulin Aspart (NovoLOG) 0-7 UNITS TIDWMEALS SQ Last administered on 10/09/16 11:53; Start 10/07/16 at 17:00 Dextrose (Dextrose 50%-Water Syringe) 12.5 gm PRN Q15MIN PRN IV SEE COMMENTS; Start 10/07/16 at 16:15 Enoxaparin Sodium (Lovenox Per Pharmacy Prophylaxis Dosing) 1 each PRN DAILY PRN MC SEE COMMENTS; Start 10/07/16 at 16:15; Status UNV Enoxaparin Sodium (Lovenox 40mg Syringe) 40 mg Q24H SQ Last administered on 17:51; Start 10/07/16 at 18:00 Ondansetron HCl (Zofran) 4 mg PRN Q6HRS PRN IV NAUSEA/VOMITING; Start 10/07/16 at 16:30 Magnesium Sulfate/ Dextrose 50 ml @ 25 mls/hr 1X ONCE IV Last administered on 10/08/16 12:31; Start 10/08/16 at 12:30; Stop 10/08/16 at 14:29; Status DC Insulin Detemir (Levemir) 5 units QHS SQ Last administered on 10/08/16 22:22; Start 10/08/16 at 21:00 Potassium Chloride (Klor-Con) 40 meq 1X ONCE PO Last administered on 11:37; Start 10/09/16 at 11:00; Stop 10/09/16 at 11:01; Status DC Magnesium Sulfate/ Dextrose 50 ml @ 25 mls/hr 1X ONCE IV ; Start 10/09/16 at 11 :00; Stop 10/09/16 at 12:59; Status DC Potassium Chloride (Klor-Con) 10 meq 1X ONCE PO ; Start 10/09/16 at 11:15; Stop 10/09/16 at 11:16; Status DC Potassium Phosphate 10 mmol/ Sodium Chloride 103.3333 ml @ 51.667 m... Q2H IV ; Start 10/09/16 at 11:30; Stop 10/09/16 at 15:29 Magnesium Sulfate/ Dextrose 50 ml @ 25 mls/hr 1X ONCE IV Last administered on 10/09/16 11:39; Start 10/09/16 at 12:00; Stop 10/09/16 at 13:59 Active Scripts Active Hydrocodone-Apap 5-325 (Hydrocodone Bit/Acetaminophen) 1 Each Tablet 1 Tab PO PRN Q4HRS PRN Reported Cephalexin 500 Mg Capsule 1 Cap PO DAILY Flovent 100MCG Diskus (Fluticasone Propionate) 100 Mcg Disk.w.dev 1 Puff IH BID Multi-Day Vitamins (Multivitamin) 1 Each Tablet 1 Tab PO DAILY Bydureon (Exenatide Microspheres) 2 Mg Vial 2 Mg SQ WEEKLY Losartan Potassium 100 Mg Tablet 100 Mg PO HS Gabapentin 100 Mg Capsule 100 Mg PO QHS Metformin Hcl 1,000 Mg Tablet 1,000 Mg PO BID Alendronate Sodium 70 Mg Tablet 70 Mg PO WEEKLY PATIENT TAKES ON SATURDAY Atorvastatin Calcium 40 Mg Tablet 40 Mg PO QPM Lantus Solostar (Insulin Glargine,Hum.rec.anlog) 100 Unit/1 Ml Insuln.pen 15 Units SQ QHS Vitals/I & O Vital Sign - Last 24 Hours 10/08/16 10/08/16 10/08/16 10/08/16 14:58 19:00 20:54 22:25 Temp 97.7 97.8 97.7 97.8 Pulse 82 85 85 Resp 12 20 20 B/P (MAP) 155/64 (94) 175/76 (109) 175/76 Pulse Ox 92 96 O2 Delivery Room Air Room Air Room Air 10/08/16 10/09/16 10/09/16 10/09/16 23:00 03:00 07:47 08:13 Temp 98.4 97.9 98.0 98.4 97.9 98.0 Pulse 82 84 86 Resp 20 20 22 B/P (MAP) 152/78 (102) 160/86 (110) 148/80 (102) Pulse Ox 95 96 95 O2 Delivery Room Air Room Air Room Air Room Air 10/09/16 10/09/16 08:17 11:00 Temp 97.0 97.0 Pulse 76 Resp 20 B/P (MAP) 146/74 (98) Pulse Ox 98 96 O2 Delivery Room Air Room Air Intake and Output 10/08/16 10/08/16 10/09/16 14:59 22:59 06:59 Intake Total 600 ml 1100 ml 200 ml Output Total 600 ml 600 ml Balance 600 ml 500 ml -400 ml JERONIMO CONTRERAS MD Oct 09, 2016 13:18
[2016-10-09] MEDS: POTASSIUM PHOSPHATE DIBASIC 10 MMOL in IV NORMAL SALINE 100ML 100 ML IV SCH ×2 (13:50→15:56)
[2016-10-09 15:00] VITALS: BP 183/88
[2016-10-09] MEDS: ENOXAPARIN 40 MG/0.4 ML SYRINGE. SQ SCH (17:09)
[2016-10-09 19:00] VITALS: BP 166/90
[2016-10-09] MEDS: BUDESONIDE 0.5 MG/2 ML NEBU. NEB SCH ×2 (20:00→20:10)
[2016-10-09] MEDS: ATORVASTATIN CALCIUM 40 MG TABLET. PO SCH (20:32)
[2016-10-09] MEDS: GABAPENTIN 100 MG CAPSULE. PO SCH (20:32)
[2016-10-09] MEDS: LOSARTAN POTASSIUM 50 MG TABLET. PO SCH (20:34)
[2016-10-09] MEDS: INSULIN DETEMIR 300 UNITS/3 ML INSULN.PEN. SQ SCH (22:30)
[2016-10-09 23:00] VITALS: BP 170/78
[2016-10-10 03:00] VITALS: BP 159/86
[2016-10-10 07:00] VITALS: BP 152/81
[2016-10-10] MEDS: BUDESONIDE 0.5 MG/2 ML NEBU. NEB SCH (07:11)
[2016-10-10 07:52] LABS: CALCIUM 9.4 mg/dL (8.5-10.1); CREATININE 0.9 mg/dL (0.6-1.0); GFR 60.7; MAGNESIUM 1.9 mg/dL (1.8-2.4); PHOSPHORUS 2.6 mg/dL (2.6-4.7); POTASSIUM 3.7 mmol/L (3.5-5.1)
[2016-10-10] MEDS: INSULIN ASPART 300 UNITS/3 ML INSULN.PEN SQ SCH ×2 (09:01→11:58)
[2016-10-10] MEDS: IV NORMAL SALINE 1000ML BAG 1,000 ML IV SCH (09:02)
[2016-10-10] MEDS: MULTIVITAMIN with MINERAL TABLET. PO SCH (09:02)
[2016-10-10 11:00] VITALS: BP_SYST 134; BP_SYST 175; BP_DIAS 74; BP_DIAS 75
--- NOTE | 2016-10-10 11:40 | PDOC ---
Renal-Progress Notes Subjective Notes Notes NONE History of Present Illness Hx of present illness BETTER Vitals Vitals Vital Signs Date Time Temp Pulse Resp B/P (MAP) Pulse Ox O2 Delivery O2 Flow Rate FiO2 10/10/16 11:00 97.2 72 22 134/75 (94) 98 97.2 10/10/16 08:07 Room Air Weight Weight [ ] I.O. Intake and Output Intake and Output 10/10/16 07:00 Intake Total 2223.3333 ml Output Total 1800 ml Balance 423.3333 ml Intake Oral 2070 ml IV Total 153.3333 ml Output Urine Total 1800 ml # Voids 2 Labs Labs Laboratory Tests Test 10/09/16 16:39 10/09/16 21:30 10/10/16 03:14 10/10/16 07:04 Glucose (Fingerstick) 137 mg/dL (70-99) 149 mg/dL (70-99) 147 mg/dL (70-99) Sodium Level 140 mmol/L (136-145) Potassium Level 3.7 mmol/L (3.5-5.1) Chloride Level 104 mmol/L (98-107) Carbon Dioxide Level 24 mmol/L (21-32) Anion Gap 12 (6-14) Blood Urea Nitrogen 8 mg/dL (7-20) Creatinine 0.9 mg/dL (0.6-1.0) Estimated GFR (Cockcroft-Gault) 60.7 Glucose Level 129 mg/dL (70-99) Calcium Level 9.4 mg/dL (8.5-10.1) Phosphorus Level 2.6 mg/dL (2.6-4.7) Magnesium Level 1.9 mg/dL (1.8-2.4) Micro Micro Microbiology 10/07/16 Urine Culture - Final, Complete 10/07/16 Urine Culture Result 1 (OMAIRA) - Final, Complete Review of Systems Constitutional: yes: weakness, alert, oriented Ears/Nose/Throat: Yes: no symptom reported Eyes: Yes: no symptom reported Cardiovascular: Yes no symptom reported Gastrointestional: Yes: no symptom reported Genitourinary: Yes: no symptom reported Musculoskeletal: Yes: no symptom reported Psychiatric/Neurological: Yes: other (FORGETFUL) Endocrine: Yes: no symptom reported Physical Exam General Appearance: no apparent distress Skin: warm Respiratory: bilateral CTA Heart: S1S2 Genitourinary: bladder flat Extremities: pulses present Neurology: alert, oriented Assessment Assessment IMP HYPERCALCEMIA-RESOLVED MILD JOHAN-RESOLVED LOW PO4-RESOLVED LOW MAG-RESOLVED LOW K-RESOLVED PLAN WILL SIGN OFF JERE CHANEL MD Oct 10, 2016 11:40
[2016-10-10] MEDS ORDERED: INSU100I27 SQ (11:47)
--- NOTE | 2016-10-10 13:48 | PDOC3 ---
Discharge Summary [facility] Date of Admission: Oct 07, 2016 Discharge Date: Oct 10, 2016 Admitting Diagnosis generalized weakness, acquired, sudden hypercalcemia, history of prior hyperparathyroidism post partial parathyroidectomy dehydration, acute renal failure, vasomotor, hypomagnesemia Dm2, htn recent UTI hypokalemia hypophosphatemia recent bowel prep for colonoscopy Problems: CONSULTS renal sx Brief Hospital Course Ms. Redding is a 75 old F, recent was here for UTI, also got colonoscopy recently. came for N/V, generalized weakness. was found hypokalemia, hypomagnesemia, hypercalcemia. h/o parathyroidectomy , PTH normal now. Ca normal with IVF feels good, dc to rehab dc time 35min General: Alert, Oriented X3, Cooperative, No acute distress Heart: Regular rate, Normal S1 Lungs: Clear Abdomen: Soft, No tenderness Extremities: No clubbing Skin: No rashes, No breakdown Problems: Disposition rehab CONDITION AT DISCHARGE: Improved, Stable Diet regular Scheduled Alendronate Sodium (Alendronate Sodium), 70 MG PO WEEKLY, (Reported) Atorvastatin Calcium (Atorvastatin Calcium), 40 MG PO QPM, (Reported) Exenatide Microspheres (Bydureon), 2 MG SQ WEEKLY, (Reported) Fluticasone Propionate (Flovent 100MCG Diskus), 1 PUFF IH BID, (Reported) Gabapentin (Gabapentin), 100 MG PO QHS, (Reported) Insulin Detemir (Levemir Flextouch), 5 UNITS SQ QHS Losartan Potassium (Losartan Potassium), 100 MG PO HS, (Reported) Metformin Hcl (Metformin Hcl), 1,000 MG PO BID, (Reported) Multivitamin (Multi-Day Vitamins), 1 TAB PO DAILY, (Reported) Scheduled PRN Hydrocodone Bit/Acetaminophen (Hydrocodone-Apap 5-325 ), 1 TAB PO PRN Q4HRS PRN for MILD PAIN Discontinued Medications Cephalexin (Cephalexin), 1 CAP PO DAILY, (Reported) Insulin Glargine,Hum.rec.anlog (Lantus Solostar), 15 UNITS SQ QHS, (Reported) Follow Up pcp in 2 weeks JERONIMO CONTRERAS MD Oct 10, 2016 13:48
[2016-10-10 15:00] VITALS: BP 147/86
[2016-10-14] MEDS ORDERED: EXENATIDE MICROSPHERES 2 MG SQ SCH (09:00)
== END 2016-10-10 16:41 | DRG 682 ==
LOC: ER 09:49 → 5 SOUTH 10:45
PROVIDERS: ADMIT Internal Medicine; ATTEND Internal Medicine
DX: N17.0 Acute kidney failure with tubular necrosis (principal); G93.41 Metabolic encephalopathy; E11.22 Type 2 diabetes mellitus with diabetic chronic kidney disease; N39.0 Urinary tract infection, site not specified; E83.52 Hypercalcemia; E86.0 Dehydration; E87.6 Hypokalemia; E21.0 Primary hyperparathyroidism; E78.00 Pure hypercholesterolemia, unspecified; E78.5 Hyperlipidemia, unspecified; M81.0 Age-related osteoporosis without current pathological fracture; I12.9 Hypertensive chronic kidney disease with stage 1 through stage 4 chronic kidney disease, or unspecified chronic kidney disease; N18.9 Chronic kidney disease, unspecified; Z82.49 Family history of ischemic heart disease and other diseases of the circulatory system; Z83.3 Family history of diabetes mellitus; Z90.710 Acquired absence of both cervix and uterus; Z88.5 Allergy status to narcotic agent; Z88.8 Allergy status to other drugs, medicaments and biological substances
CPT/HCPCS: 36415; 71010; 80048; 80076; 81001; 82274; 82306; 82310; 82553; 82962; 83690; 83735; 83880; 83970; 84100; 84443; 84484; 85025; 85610; 87086; 93005; 94250; 94640; 94760; J1650; J1815; J2405; J7030; J7060; J7626; 97530; 97535; 99285-25

== ENCOUNTER → 2017-01-03 | Outpatient (CLI) | payer MEDICARE, BC ==
[~2017-01-03] MED LIST changes: +INSU100I27 SQ
--- NOTE | 2017-01-03 09:01 | RAD ---
Right lower extremity venous ultrasound, 01/03/2017 : History: Right leg pain and swelling Duplex evaluation including grayscale, color flow and spectral Doppler analysis was performed. The femoral and popliteal veins show no filling defects to suggest DVT. The visualized deep veins in the right calf are unremarkable. IMPRESSION: There is no sonographic evidence of deep vein thrombosis in the right lower extremity
== END | disposition home or self-care (01) ==
LOC: US 06:49
PROVIDERS: ATTEND Internal Medicine
DX: M79.604 Pain in right leg (principal); M79.89 Other specified soft tissue disorders
CPT/HCPCS: 93971

== ENCOUNTER → 2017-07-04 | Outpatient (CLI) | payer MEDICARE, BC | END | disposition home or self-care (01) | LOC: MAMMO 12:41 | DX: Z12.31 Encounter for screening mammogram for malignant neoplasm of breast (principal); I12.9 Hypertensive chronic kidney disease with stage 1 through stage 4 chronic kidney disease, or unspecified chronic kidney disease; E11.22 Type 2 diabetes mellitus with diabetic chronic kidney disease; N18.9 Chronic kidney disease, unspecified | CPT/HCPCS: 77063; 77067 ==

== ENCOUNTER → 2018-10-30 | Outpatient (CLI) | payer MEDICARE, BC ==
[~2018-10-30] MED LIST changes: -ALEN70TA5 PO; +ALEN70TA6 PO; -HYDR-2758 PO; +HYDR-2761 PO; +LOSA100T14 PO; -LOSA100T6 PO; -METF-620 PO; +METF10007 PO
--- NOTE | 2018-11-01 14:19 | RAD ---
DATE: 10/30/2018 EXAM: MAMMO RIZWAN SCREENING BILATERAL HISTORY: Routine screening COMPARISON: 05/17/2014, 05/19/2015, 06/28/2016, 07/04/2017 mammographic exams This study was interpreted with the benefit of Computerized Aided Detection (CAD). Breast Density: SCATTERED The breast parenchyma shows scattered fibroglandular densities. Breast parenchyma level B. FINDINGS: No suspicious dominant mass in the interval. No suspicious calcification or distortion. IMPRESSION: Stable BI-RADS CATEGORY: 1 NEGATIVE RECOMMENDED FOLLOW-UP: 12M 12 MONTH FOLLOW-UP PQRS compliance statement: Patient information was entered into a reminder system with a target due date in one year for the next mammogram. Mammography is a sensitive method for finding small breast cancers, but it does not detect them all and is not a substitute for careful clinical examination. A negative mammogram does not negate a clinically suspicious finding and should not result in delay in biopsying a clinically suspicious abnormality. "Our facility is accredited by the [employer] Mammography Program."
== END | disposition home or self-care (01) ==
LOC: MAMMO 08:41
PROVIDERS: ATTEND Internal Medicine
DX: Z12.31 Encounter for screening mammogram for malignant neoplasm of breast (principal)
CPT/HCPCS: 77063; 77067

== ENCOUNTER → 2019-04-23 | Outpatient (CLI) | payer MEDICARE, BC ==
[~2019-04-23] MED LIST changes: +OXYB5TAB10 PO; -OXYB5TAB7 PO
--- NOTE | 2019-04-30 14:23 | RESP ---
DATE OF SERVICE: 04/23/2019 PULMONARY FUNCTION TEST REFERRING PHYSICIAN: Jasmine Morfin MD The patient's FVC was 2.69, which is 98% predicted, FEV1 2.13, which is 104% predicted. The FEV1/FVC ratio was normal. No bronchodilators given. Lung volume showed a total lung capacity of 206% predicted, residual volume was 351% predicted. Diffusion capacity 117% predicted. IMPRESSION: 1. No evidence of obstructive airway disease. 2. No bronchodilators given. 3. Lung volumes consistent with hyperinflation. 4. Increased diffusion capacity. FILIPE MCKNIGHT MD DR: YOSHI/rodney JOB#: [id number] / [id number]
== END | disposition home or self-care (01) ==
LOC: PF 07:54
PROVIDERS: ATTEND Internal Medicine
DX: R06.09 Other forms of dyspnea (principal)
CPT/HCPCS: 94010; 94726; 94729

== ENCOUNTER → 2020-04-11 | Outpatient (CLI) | payer MEDICARE, BC ==
[~2020-04-11] MED LIST changes: -ALEN70TA6 PO; +ALEN70TA71 PO; -LISI-334 PO; +LISI20TA18 PO; +MULT-445 PO; -MULT1TAB52 PO
--- NOTE | 2020-04-11 13:15 | KCIC ---
INDICATION: Osteoporosis screening. Postmenopausal evaluation COMPARISON: None. TECHNIQUE: Bone densitometry was performed through the lumbar spine and proximal femur. FINDINGS: Lumbar Spine: BMD: 1.17 T-Score: 1.1 Proximal Femur: BMD: 0.75 T-Score: -1.6 IMPRESSION: 1. Lumbar spine falls within the normal range. 2. Proximal femur falls within the osteopenic range. Electronically signed by: Javier Hopson MD (04/11/2020 1:12 PM) [id number]
== END ==
LOC: KCIC DEXA 10:59
PROVIDERS: ATTEND Internal Medicine
DX: N95.1 Menopausal and female climacteric states (principal); M85.88 Other specified disorders of bone density and structure, other site
CPT/HCPCS: 77080

== ENCOUNTER 2020-05-08 09:22 | Emergency (ER) | payer MEDICARE, BC ==
[~2020-05-08] VITALS: Ht 162.6 cm; Wt 68.2 kg
[~2020-05-08 09:22] MED LIST changes: -FLUT100D IH; +FLUT100D2 IH
[2020-05-08] MEDS ORDERED: IBUPROFEN 400 MG TABLET. PO ONE (09:45)
--- NOTE | 2020-05-08 10:00 | RAD ---
XR HAND_LEFT 3 VIEWS History: Reason: left thumb pain / Spl. Instructions: / History: Technique: 3 views left hand Comparison: None. Findings: Normal alignment. No fracture. Mild polyarticular degenerative changes most prominent within the dist al interphalangeal joints. Moderate first carpal metacarpal DJD. Impression: 1. No acute osseous abnormality. Electronically signed by: Aquiles Matthews DO (05/08/2020 9:58 AM) [id number]
[2020-05-08] MEDS ORDERED: NAPR-683 PO (10:24)
--- NOTE | 2020-05-08 10:24 | PHYS DOC ---
Past Medical History Past Medical History: Diabetes-Type II, High Cholesterol, Hypertension, Other Additional Past Medical Histor: POOR HISTORIAN Past Surgical History: Other Additional Past Surgical Histo: L THUMB Smoking Status: Never Smoker Alcohol Use: None Drug Use: None Adult General Chief Complaint Chief Complaint: THUMB HPI HPI Patient is a 79 year old female with a past medical history of hypertension, hyperlipidemia and diabetes now presents emergency department complaining of new onset of left-sided cramping. Patient states that approximate 5 years ago she had surgery on the left arm to limit this injury. Patient states that she been feeling fine until yesterday when she started noting some mild aching in the left thumb. Patient states this morning this progressed she noted some mild swelling worsening pain over the left proximal thumb joint. Denies any fevers, chills, injury to the area. Review of Systems Review of Systems Constitutional: Denies fever or chills [] Eyes: Denies change in visual acuity, redness, or eye pain [] HENT: Denies nasal congestion or sore throat [] Respiratory: Denies cough or shortness of breath [] Cardiovascular: No additional information not addressed in HPI [] GI: Denies abdominal pain, nausea, vomiting, bloody stools or diarrhea [] : Denies dysuria or hematuria [] Musculoskeletal: Denies back pain or joint pain [] Integument: Denies rash or skin lesions [] Neurologic: Denies headache, focal weakness or sensory changes [] Endocrine: Denies polyuria or polydipsia [] All other systems were reviewed and found to be within normal limits, except as documented in this note. Current Medications Current Medications Current Medications Medications (Trade) Dose Ordered Sig/[facility] Start Time Stop Time Status Last Admin Dose Admin Ibuprofen (Motrin) 800 mg 1X ONCE 05/08/20 09:45 05/08/20 09:46 DC 05/08/20 09:53 800 MG Allergies Allergies Allergies Coded Allergies Type Severity Reaction Last Updated Verified codeine Adverse Reaction Intermediate Nausea and Vomiting 10/03/16 Yes tramadol Adverse Reaction Intermediate Nausea and Vomiting 10/03/16 Yes Physical Exam Physical Exam Constitutional: Well developed, well nourished, no acute distress, non-toxic appearance. [] HENT: Normocephalic, atraumatic, bilateral external ears normal, oropharynx moist, no oral exudates, nose normal. [] Eyes: PERRLA, EOMI, conjunctiva normal, no discharge. [] Neck: Normal range of motion, no tenderness, supple, no stridor. [] Cardiovascular:Heart rate regular rhythm, no murmur [] Lungs & Thorax: Bilateral breath sounds clear to auscultation [] Abdomen: Bowel sounds normal, soft, no tenderness, no masses, no pulsatile masses. [] Skin: Warm, dry, no erythema, no rash. [] Back: No tenderness, no CVA tenderness. [] Extremities: Very mild volar erythema to the left thumb with minimal tenderness in the area, no cyanosis, no clubbing, ROM intact, no edema. [] Neurologic: Alert and oriented X 3, normal motor function, normal sensory function, no focal deficits noted. [] Psychologic: Affect normal, judgement normal, mood normal. [] Current Patient Data Vital Signs Vital Signs Date Time Temp Pulse Resp B/P (MAP) Pulse Ox O2 Delivery O2 Flow Rate FiO2 05/08/20 09:25 98.6 83 16 117/82 (94) 96 Room Air 98.6 EKG EKG [] Radiology/Procedures Radiology/Procedures XR HAND_LEFT 3 VIEWS History: Reason: left thumb pain / Spl. Instructions: / History: Technique: 3 views left hand Comparison: None. Findings: Normal alignment. No fracture. Mild polyarticular degenerative changes most prominent within the distal interphalangeal joints. Moderate first carpal metacarpal DJD. Impression: 1. No acute osseous abnormality. Electronically signed by: Aquiles Matthews DO (05/08/2020 9:58 AM) [id number] Course & Med Decision Making Course & Med Decision Making Pertinent Labs and Imaging studies reviewed. (See chart for details) 79F presented with new pain and mild tenderness over the left first metacarpophalangeal joint line tenderness in the area most consistent with an acute tendinitis. X-ray was obtained to make sure there is no significant underlying etiology for osteomyelitis and this was negative. Patient symptoms improved after getting Motrin. At this time I doubt there is any evidence of septic arthritis or fracture. Will discharge patient home with thumb spica splint for comfort and NSAIDs for pain medication. I spoken with the patient and her caregivers. I explained the patient's condition, diagnoses and treatment plan based on the information available to me at this time. I have answered the patient and her caregiver's questions and addressed any concerns. The patient and her caregivers have a good understanding of patient's diagnosis, condition and treatment plan as can be expected at this point. Vital signs have been stable. Patient's condition is stable and appropriate for discharge from the emergency department. Patient will pursue further outpatient evaluation with primary care physician or other designated or consulting physician as outlined in the discharge instructions. The patient and/or caregivers are agreeable to this plan of care and follow-up instructions have been explained in detail. The patient and/or caregivers have received these instructions in written form and have expressed an understanding of the discharge instructions. The patient and/or caregivers are aware that any significant change of condition or worsening of symptoms should prompt immediate return to this or the closest emergency department or call to 911. Patric Disclaimer Patric Disclaimer This electronic medical record was generated, in whole or in part, using a voice recognition dictation system. Departure Departure Impression: Primary Impression: Thumb tendonitis Disposition: 01 DC HOME SELF CARE/HOMELESS Condition: GOOD Referrals: RAIZA VILLALTA MD (PCP) Patient Instructions: Thumb Fracture Additional Instructions: EMERGENCY DEPARTMENT GENERAL DISCHARGE INSTRUCTIONS Thank you for coming to [facility] Emergency Department (ED) today and trusting us with you care. We trust that you had a positive experience in our Emergency Department. If you wish to speak to the department management, you may call the Director at [phone]. YOUR FOLLOW UP INSTRUCTIONS ARE FOLLOWS: 1. Do you have a private Doctor? If you do not have a private doctor, please ask for a resource list of physicians or clinics that may be able to assist you with follow up care. 2. The Emergency Physicain has interpreted your x-rays. The X-Ray specialist will also review them. If there is a change in the findings, you will be notified in 48 hours when at all possible. 3. A lab test or culture has been done, your results will be reviewed and you will be notified if you need a change in treatment. ADDITIONAL INSTRUCTIONS AND INFORMATION: 1. Your care today has been supervised by a physician who is specially trained in emergency care. Many problems require more than one evaluation for a complete diagnosis and treatment. We recommend that you schedule your follow up appointment as recommended to ensure complete treatment of you illness or injury. If you are unable to obtain follow up care and continue to have a problem, or if your condition worsens, we recommend that you return to the ED. 2. We are not able to safely determine your condition over the phone nor are we able to give sound medical advice over the phone. For these safety reasons, if you call for medical advice we will ask you to come to the ED for further evaluation. 3. If you have any questions regarding these discharge instructions please call the ED at [phone]. SAFETY INFORMATION: In the interest of safety, wellness, and injury prevention; we encourage you to wear your sealbelt, if you smoke; quite smoking, and we encourage family to use a protective helmet for bicycling and other sporting events that present an increased risk for head injury. IF YOUR SYMPTOMS WORSEN OR NEW SYMPTOMS DEVELOP, OR YOU HAVE CONCERNS ABOUT YOUR CONDITION; OR IF YOUR CONDITION WORSENS WHILE YOU ARE WAITING FOR YOUR FOLLOW UP APPOINTMENT; EITHER CONTACT YOUR PRIMARY CARE DOCTOR, THE PHYSICIAN WHOSE NAME AND NUMBER YOU WERE GIVEN, OR RETURN TO THE ED IMMEDIATELY. Scripts Naproxen (NAPROSYN) 500 Mg Tablet 1 TAB PO BID for pain, #20 TAB Prov: PK CANTOR MD 05/08/20 PK CANTOR MD May 08, 2020 10:24
[2020-05-08 10:30] VITALS: BP 117/80
== END 2020-05-08 10:36 | disposition home or self-care (01) ==
LOC: ER 09:22
DX: M77.8 Other enthesopathies, not elsewhere classified (principal); M79.645 Pain in left finger(s); R25.2 Cramp and spasm; E11.9 Type 2 diabetes mellitus without complications; E78.00 Pure hypercholesterolemia, unspecified; I10 Essential (primary) hypertension; Z98.890 Other specified postprocedural states
CPT/HCPCS: 29125; 73130; 99283

== ENCOUNTER 2020-12-24 11:32 | Emergency (ER) | payer MEDICARE, BC ==
[~2020-12-24] VITALS: Ht 162.6 cm; Wt 71.3 kg
[~2020-12-24 11:32] MED LIST changes: +NAPR-683 PO
[2020-12-24 12:08] LABS: BILIRUBIN,URINE NEGATIVE (NEG); CLARITY,URINE CLEAR; COLOR,URINE YELLOW; NITRITE,URINE NEGATIVE (NEG); PH,URINE 6.5 (<5.0-8.0); PROTEIN,URINE NEGATIVE (NEG-TRACE); UROBILINOGEN,URINE 0.2 mg/dL (0.2 mg/dL)
[2020-12-24 12:22] LABS: BACTERIA,URINE MANY /HPF (0-FEW); HYALINE CASTS, URINE OCCASIONAL /HPF; RBC,URINE OCC /HPF (0-2); WBC,URINE >40 /HPF (0-4)
[2020-12-24] MEDS ORDERED: CEPHALEXIN 250 MG CAPSULE. PO STA (12:41)
[2020-12-24] MEDS ORDERED: CEPH500T PO (12:44)
[2020-12-24] MEDS ORDERED: PHEN100T82 PO (12:44)
[2020-12-24] MEDS ORDERED: PHENAZOPYRIDINE 200 MG TABLET. PO ONE (12:45)
--- NOTE | 2020-12-24 12:45 | PHYS DOC ---
Past Medical History Past Medical History: Diabetes-Type II, High Cholesterol, Hypertension, Other Additional Past Medical Histor: hyperlipidemia, overactive bladder (JIM HOWARD APRN) Past Surgical History: Other Additional Past Surgical Histo: L THUMB (JIM HOWARD APRN) Smoking Status: Never Smoker Alcohol Use: None Drug Use: None (JIM HOWARD APRN) General Adult EDM: Chief Complaint: PAIN ON URINATION HPI: HPI: Patient is a 80-year-old female presents emergency department with chief complaint of urinary pressure with burning upon urination and increased frequency of this started last night. Patient reports she has a history of stress incontinence and wears a brief and has had problems with urinary tract i nfections. Patient denies abdominal pain, nausea, vomiting, diarrhea. Patient denies chest pains or shortness of breath or recent fever or chills. Patient denies seeing blood in her stool or in her urine. Patient denies rashes to her genitalia or other parts of her body, denies other physical complaints or physical concerns. (JIM HOWARD APRN) Review of Systems: Review of Systems: 14 body systems of review of systems have been reviewed. See HPI for pertinent positives and negative responses, otherwise all other systems are negative, nonpertinent or noncontributory. Constitutional: Negative except as outlined in HPI above. Skin: Negative except as outlined in HPI above. Eyes: Negative except as outlined in HPI above. HENT: Negative except as outlined in HPI above. Respiratory: Negative except as outlined in HPI above. Cardiovascular: Negative except as outlined in HPI above. GI: Negative except as outlined in HPI above. : Negative except as outlined in HPI above. Musculoskeletal: Negative except as outlined in HPI above. Integument: Negative except as outlined in HPI above. Neurologic: Negative except as outlined in HPI above. Endocrine: Negative except as outlined in HPI above. Lymphatic: Negative except as outlined in HPI above. Psychiatric: Negative except as outlined in HPI above. (JIM HOWARD APRN) Heart Score: C/O Chest Pain: No Risk Factors: Risk Factors: DM, Current or recent (<one month) smoker, HTN, HLP, family history of CAD, obesity. Risk Scores: Score 0 - 3: 2.5% MACE over next 6 weeks - Discharge Home Score 4 - 6: 20.3% MACE over next 6 weeks - Admit for Clinical Observation Score 7 - 10: 72.7% MACE over next 6 weeks - Early Invasive Strategies (JIM HOWARD APRN) Allergies: Allergies: Allergies Coded Allergies Type Severity Reaction Last Updated Verified codeine Adverse Reaction Intermediate Nausea and Vomiting 10/03/16 Yes tramadol Adverse Reaction Intermediate Nausea and Vomiting 10/03/16 Yes (JIM HOWARD APRN) Physical Exam: PE: Constitutional: Well developed, well nourished, no acute distress, non-toxic appearance. 80-year-old female in no apparent distress. HENT: Normocephalic, atraumatic. Eyes: Conjunctiva normal, no discharge. Neck: Normal range of motion, no stridor. Cardiovascular: No cyanosis appreciated, distal cap refill less than 2 seconds. Lungs & Thorax: Patient is in no respiratory distress, no audible adventitious lung sounds appreciated. Abdomen: Nontender, no abnormalities noted. Skin: Warm, dry, no erythema, no rash. Back: No tenderness, no deformities. Extremities: No tenderness, no cyanosis, no clubbing, ROM intact, no edema. Neurologic: Alert and oriented X 3, normal motor function, normal sensory function, no focal deficits noted. Psychologic: Affect normal, judgement normal, mood normal. (JIM HOWARD APRN) Current Patient Data: Labs: Laboratory Tests Test 12/24/20 11:45 Urine Collection Type Void Urine Color Yellow Urine Clarity Clear Urine pH 6.5 (<5.0-8.0) Urine Specific [place] 1.015 (1.000-1.030) Urine Protein Negative mg/dL (NEG-TRACE) Urine Glucose (UA) >=1000 mg/dL (NEG) Urine Ketones (Stick) Negative mg/dL (NEG) Urine Blood Negative (NEG) Urine Nitrite Negative (NEG) Urine Bilirubin Negative (NEG) Urine Urobilinogen Dipstick 0.2 mg/dL (0.2 mg/dL) Urine Leukocyte Esterase Moderate (NEG) Urine RBC Occ /HPF (0-2) Urine WBC >40 /HPF (0-4) Urine Squamous Epithelial Cells Mod /LPF Urine Renal Epithelial Cells Few /LPF Urine Bacteria Many /HPF (0-FEW) Urine Hyaline Casts Occasional /HPF Vital Signs: Vital Signs Date Time Temp Pulse Resp B/P (MAP) Pulse Ox O2 Delivery O2 Flow Rate FiO2 12/24/20 11:45 98.0 83 16 160/72 (101) 95 Room Air 98.0 (JIM HOWARD APRN) EKG: EKG: [] (JIM HOWARD APRN) Radiology/Procedures: Radiology/Procedures: [] (JIM HOWARD APRN) Course & Med Decision Making: Course & Med Decision Making Pertinent Labs and Imaging studies reviewed. (See chart for details) 80-year-old female, vital signs reviewed, presents emergency department concerning UTI type signs and symptoms. Patient physical examination unremarkable, will send urine sample for urinalysis assay. Patient's urine consistent with acute cystitis, discussed with patient will start on Keflex and Pyridium, patient reports she is familiar with these medications and is amenable to antibiotic regimen, discussed with patient strict follow-up with primary care for reevaluation of urine sample later this week, strict return to ER precautions or concerns. Discussed with the patient all findings and diagnostic testing as well as the need to follow-up with their primary care provider for further evaluation and treatment or return to the ED if any new or worsening symptoms. Strict return precautions were also discussed at length, the patient voiced understanding and agreement with the discharge planning. The patient was nontoxic in appearance, in no apparent distress, and hemodynamically stable at the time of disposition. (JIM HOWARD APRN) Course & Med Decision Making I have participated in the care of this patient and I have reviewed and agree with all pertinent clinical information above including history, exam, and recommendations. Brant Ryder DO (BRANT RYDER DO) Patric Disclaimer: Patric Disclaimer: This electronic medical record was generated, in whole or in part, using a voice recognition dictation system. (JIM HOWARD APRN) Departure Departure Impression: Primary Impression: UTI (urinary tract infection) Qualified Codes: N30.00 - Acute cystitis without hematuria Disposition: HOME / SELF CARE / HOMELESS Condition: GOOD Referrals: RAIZA VILLALTA MD (PCP) Patient Instructions: Urinary Tract Infection Additional Instructions: You were seen today in the emergency department for urinary pressure, increased urinary frequency, and burning with urination. Your urine sample did show many bacteria which is suggestive of a urinary tract infection. I have started you on your antibiotic dosing today along with a medication called Pyridium to help with your urinary pressure and burning symptoms. As we discussed, a common side effect of Pyridium is to change the color of your urine to an orange or dark brown color, please do not be alarmed if this happens as it will resolve over the next few days. I have prescribed you an antibiotic called cephalexin that you will take 4 times a day for the next 10 days. please increase your water intake to help flush out bacteria and to assist with your antibiotic regimen. Please follow-up with your primary care physician this coming week to have your urine reevaluated. Return to the emergency department for worsening symptoms or other concerns. Thank you for visiting our Emergency Department. It was a pleasure taking care of you today in the emergency department and we appreciate you trusting us with your care. If any additional problems come up don't hesitate to return to visit us. Please follow up with your primary care provider so they can plan additional care if needed and know about the problem that you had. If symptoms worsen come back to the Emergency Department. Any concerning symptoms that start such as chest pain, shortness of air, weakness or numbness on one side of the body, running high fevers or any other concerning symptoms return to the ER. EMERGENCY DEPARTMENT GENERAL DISCHARGE INSTRUCTIONS Thank you for coming to [facility] Emergency Department (ED) today and trusting us with you care. We trust that you had a positive experience in our Emergency Department. If you wish to speak to the department management, you may call the Director at [phone]. YOUR FOLLOW UP INSTRUCTIONS ARE FOLLOWS: 1. Do you have a private Doctor? If you do not have a private doctor, please ask for a resource list of physicians or clinics that may be able to assist you with follow up care. 2. The Emergency Physicain has interpreted your x-rays. The X-Ray specialist will also review them. If there is a change in the findings, you will be notified in 48 hours when at all possible. 3. A lab test or culture has been done, your results will be reviewed and you will be notified if you need a change in treatment. ADDITIONAL INSTRUCTIONS AND INFORMATION: 1. Your care today has been supervised by a physician who is specially trained in emergency care. Many problems require more than one evaluation for a complete diagnosis and treatment. We recommend that you schedule your follow up appointment as recommended to ensure complete treatment of you illness or injury. If you are unable to obtain follow up care and continue to have a problem, or if your condition worsens, we recommend that you return to the ED. 2. We are not able to safely determine your condition over the phone nor are we able to give sound medical advice over the phone. For these safety reasons, if you call for medical advice we will ask you to come to the ED for further evaluation. 3. If you have any questions regarding these discharge instructions please call the ED at [phone]. SAFETY INFORMATION: In the interest of safety, wellness, and injury prevention; we encourage you to wear your sealbelt, if you smoke; quite smoking, and we encourage family to use a protective helmet for bicycling and other sporting events that present an increased risk for head injury. IF YOUR SYMPTOMS WORSEN OR NEW SYMPTOMS DEVELOP, OR YOU HAVE CONCERNS ABOUT YOUR CONDITION; OR IF YOUR CONDITION WORSENS WHILE YOU ARE WAITING FOR YOUR FOLLOW UP APPOINTMENT; EITHER CONTACT YOUR PRIMARY CARE DOCTOR, THE PHYSICIAN WHOSE NAME AND NUMBER YOU WERE GIVEN, OR RETURN TO THE ED IMMEDIATELY. Scripts Cephalexin (CEPHALEXIN) 500 Mg Tablet 1 TAB PO QID for UTI, #40 TAB 0 Refills Prov: JIM HOWARD APRN 12/24/20 Phenazopyridine Hcl (PYRIDIUM) 100 Mg Tablet 1 TAB PO TID for urinary discomfort for 2 Days, #6 TAB 0 Refills Prov: JIM HOWARD APRN 12/24/20 JIM HOWARD APRN Dec 24, 2020 12:45 BRANT RYDER DO Dec 24, 2020 15:25
[2020-12-24 12:55] VITALS: BP 143/72
== END 2020-12-24 13:00 | disposition home or self-care (01) ==
LOC: ER 11:32
DX: N30.00 Acute cystitis without hematuria (principal); E11.9 Type 2 diabetes mellitus without complications; E78.00 Pure hypercholesterolemia, unspecified; I10 Essential (primary) hypertension; E78.5 Hyperlipidemia, unspecified; Z88.5 Allergy status to narcotic agent; Z88.6 Allergy status to analgesic agent
CPT/HCPCS: 81001; 87077; 87086; 87186; 99283